=== PATIENT | female | born 1950 | race Caucasian/White ===

== ENCOUNTER → 2020-03-31 13:36 | Outpatient (BNVA) | payer MEDICARE, SELFPAY | PROVIDERS: PCP Internal Medicine Medical Oncology; Referring Provider Internal Medicine Medical Oncology; Visit Provider Internal Medicine | DX: I25.10 Atherosclerotic heart disease of native coronary artery without angina pectoris (principal); R94.31 Abnormal electrocardiogram [ECG] [EKG]; I10 Essential (primary) hypertension; E78.5 Hyperlipidemia, unspecified; Z79.82 Long term (current) use of aspirin; Z79.899 Other long term (current) drug therapy; Z95.1 Presence of aortocoronary bypass graft | CPT/HCPCS: 93005; 99202 ==

== ENCOUNTER 2020-05-07 10:31 | Outpatient (REF) | payer MEDICARE, SELFPAY ==
--- NOTE | 2020-05-07 10:35 | MM_ITS ---
EXAMINATION: MM SCREENING DIGITAL BREAST TOMOSYNTHESIS, BILATERAL CLINICAL INFORMATION: Screening. Asymptomatic. The lifetime risk of breast cancer based on the Tyrer-Cuzick Model is 3%. COMPARISON: Mammography: 03/11/2019, 01/22/2018, 11/01/2016 TECHNIQUE: Digital breast tomosynthesis is performed in both the craniocaudal and mediolateral oblique views along with computer-aided detection (CAD). Synthesized 2D images are generated from the tomosynthesis. FINDINGS: There are scattered areas of fibroglandular density (ACR BI-RADS breast composition Category b). Parenchymal pattern is similar to prior studies. There is no interval mass or developing density or architectural abnormality. There are scattered calcifications in both breasts, greater on right. Some vascular calcifications are mildly increased. There is digital processing artifact anterior upper right breast on the synthesized right MLO view without correlate on tomography or CC projection. The axilla and skin contours are unremarkable. MM/MM tomosynthesis screening BI IMPRESSION: No significant changes from prior exams. ASSESSMENT: BI-RADS 2: Benign RECOMMENDATION: Routine annual mammography screening. This patient's information was entered into a reminder system with a target due date for their next mammogram.
== END 2020-05-07 10:32 | disposition home or self-care (01) ==
LOC: HO.MAMMO 10:31
PROVIDERS: Visit Provider Internal Medicine Medical Oncology
DX: Z12.31 Encounter for screening mammogram for malignant neoplasm of breast (principal)
CPT/HCPCS: 77063; 77067

== ENCOUNTER → 2020-05-19 08:47 | Outpatient (REF) | payer MEDICARE, SELFPAY ==
--- NOTE | 2020-05-19 08:58 | CA_ITS ---
Transthoracic Echocardiogram Patient (Last, First, Middle): Mónica Paulino, Gender: Female Date of : 1950 Age: 70 Procedure Date: 05/19/2020 Procedure Type: Transthoracic Echocardiogram Location: OP Height: 149.86 cm Weight: 79.83 kg BSA: 1.75 m2 Heart Rate: bpm BP: 158 / 70 mmHg Phlebotomy Supervisor: [email or web address] Referring MD: Farhan Akhtar MD Die Caster: John Paul Sharma MD Symptoms: I25.10 - Atherosclerotic heart disease of [place] coronary artery without angina pectoris Study Quality: Fair ECG Rhythm: Sinus Conclusions: - 1. Hyperdynamic LV systolic function with pseudonormal filling pattern 2. Mildly dilated left atrium 3. Trivial aortic regurgitation 4. Normal RV systolic pressure 5. No pericardial effusion Findings Left Ventricle Normal left ventricular cavity size. There is mildly increased left ventricular wall thickness. The left ventricular systolic function is hyperdynamic. The visually estimated ejection fraction is >70%. Spectral Doppler is indicative of a pseudonormal filling pattern. E/E prime ratio is between 8 and 15 consistent with indeterminate filling pressures. Right Ventricle Normal right ventricular cavity size and systolic function. Atria The left atrium is mildly dilated. Interatrial shunt cannot be excluded. The right atrium is normal in size. Aortic Valve There is mild calcification of the aortic valve. There is no aortic valve stenosis. There is trace (trivial) aortic valve regurgitation. Mitral Valve There is mild posterior mitral leaflet thickening. There is mild mitral annular calcification. There is trace mitral valve regurgitation. There is no mitral valve stenosis. Pulmonic Valve The pulmonic valve was not well visualized. Tricuspid Valve Likely normal tricuspid valve structure and function. There is mild tricuspid valve regurgitation. The right ventricular systolic pressure is normal. The right ventricular systolic pressure is 29 mmHg. Normal right atrial pressure. There is no evidence of pulmonary hypertension. Great Vessels All visible segments of the aorta are normal in size. The pulmonary artery was not well visualized. Venous The inferior vena cava is normal in size and collapses greater than 50% with inspiration. Pericardium/Pleural There is no evidence of pericardial effusion. Prior Study Comparison No previous study in the last 5 years for comparison Measurements 2D Linear Measurements IVSd: 1.26 0.6-0.9/0.6-1.0 cm LVIDd: 4.81 3.9-5.3/4.2-5.9 cm LVIDd Index: 2.75 2.4-3.2/2.2-3.1 cm/m2 LVIDs: 2.85 2.0-3.6 cm LVPWd: 1.02 0.7-1.1 cm Ao Root: 2.20 2.1-3.5 cm LA Diam: 4.60 2.7-3.8/3.0-4.0 cm LAIDs Index: 2.63 1.5-2.3 cm/m2 LV Mass: 254.92 67-162/88-224 g LV Mass Index: 145.67 43-95/49-115 g/m2 LVOT Diam: 2.00 3.0+(-)1.3 cm 2D Systolic Function EF 4C: 80.60 >55% EF 2C: 90.00 >55% Mitral Valve MV Pk E: 0.85 MV PK A: 0.53 MV Decel Time: 183.00 E/A: 1.60 E'Lateral: 8.90 E'Medial: 6.00 E/E' Med: 14.20 E/E' Lat: 9.50 PHT: 54.00 MVA PHT: 4.07 Decel Bulloch: 4.64 Aortic Valve AoV Pk Cem: 1.51 AoV Pk Grad: 9.00 LVOT LVOT Pk Cem: 1.04 LVOT Mn Cem: 0.65 LVOT VTI: 0.24 LVOT Pk Grad: 4.00 LVOT Mn Grad: 2.00 LVOT Diam: 2.00 LVOT Area: 3.14 Diastolic Function MV Pk E: 0.85 MV Pk A: 0.53 E/A: 1.60 E'Medial: 6.00 E/E' Med: 14.20 E' Laterial: 8.90 E/E' Lat: 9.50 Tricuspid Valve TR Pk Cem: 2.54 TR Pk Grad: 26.00 RA Press: 3.00 RVSP: 29.00 Great Vessels Aorta Ao Root-2D: 2.20 2.0-3.7 cm Ao Asc: 2.90 2.1-3.4 cm Updated in Other Vendor System with Status of Final John Paul Sharma MD electronically signed on 05/20/2020 2:46:08 PM with status of Final
--- NOTE | 2020-05-19 10:00 | CA_ITS ---
Acquisition Time: 2020-05-19 11:03:41 Total Exercise Time: 00:02:00 Test Indications: Abnormal ECG Medications: SEE CHART Protocol: LEXISCAN Max HR: 089 BPM 59% of Pred: 150 BPM Max BP: 180/090 mmHG Max Work Load: 1.0 METS Pharmacological stress test using Lexiscan while sitting. Tolerated well, denies any anginal sx. EKG with [address] depressions seen inferiorly and anteriorly. Non-diagnostic for ischemia. Nuclear images to follow. Pt had high BP, pt states that she is anxious. BP did not increased after the test. Test reviewed with Dr. Akhtar. Referred By: Farhan Akhtar Overread By: Selvin Sánchez
--- NOTE | 2020-05-19 10:02 | NM_ITS ---
Myocardial perfusion study Indication: Atherosclerotic cardiovascular disease to evaluate for myocardial ischemia Technique: The patient was brought in for a Lexiscan perfusion study on 05/19/2020. Patient performed low-level exercise and was injected 0.4 mg of Lexiscan intravenously. Within a minute of injection, 25 mCi of sestamibi was given intravenously. Images were obtained using the SPECT gamma camera interlaced with the gating device. Images were obtained in supine position. Resting perfusion study was performed on 05/25/2020. Patient was administered 25 mCi of sestamibi intravenously at rest. Images were then obtained in supine position. Images obtained with and without CT attenuation. Total DLP 76 mGy-cm. Images were processed with the software and compared side to side in short axis, horizontal long axis and vertical long axis views. Findings: The stress perfusion study showed non attenuated images show moderately reduced uptake distal anterior and apex as well as mildly reduced uptake in the anterolateral wall of the LV myocardium. Attenuation corrected images show normalized uptake in the above mentioned segments. Overall normal uptake of the myocardium. The gated study shows normal LV systolic function with calculated LVEF of 59%. LV cavity is normal size. The gated study shows normal systolic wall thickening and contraction of segments. Resting study shows normal uptake of radiotracer in all segments of LV myocardium both on attenuation corrected. Gating at rest reveals normal systolic wall motion with ejection fraction at 69%. The findings are consistent with mild intensity reversible defect of anterolateral distal anterior wall of the LV myocardium on non attenuated images suggestive of ischemia. However attenuated corrected images are completely normal without reversible defect. This is an equivocal finding for correlation suggested. NM/NM cardiolite stress test Impression: 1. Myocardial perfusion imaging study shows mild intensity reversible defect in the anterolateral wall in diagonal territory on non attenuated images suggestive of ischemia 2. Gated LVEF is 69% 3. Transient ischemic dilatation not present EKG is nondiagnostic for ischemia
== END ==
LOC: HO.CARD 08:47
PROVIDERS: Visit Provider Internal Medicine
DX: I25.10 Atherosclerotic heart disease of native coronary artery without angina pectoris (principal)
CPT/HCPCS: 78452; 93017; 93306; A9500; J0280; J2785

== ENCOUNTER → 2020-05-26 12:32 | Outpatient (BNVA) | payer MEDICARE, SELFPAY | PROVIDERS: PCP Internal Medicine Medical Oncology; Visit Provider Internal Medicine | DX: I25.10 Atherosclerotic heart disease of native coronary artery without angina pectoris (principal); I10 Essential (primary) hypertension; E78.5 Hyperlipidemia, unspecified; R94.31 Abnormal electrocardiogram [ECG] [EKG]; Z95.1 Presence of aortocoronary bypass graft | CPT/HCPCS: 99212 ==

== ENCOUNTER 2020-06-22 10:29 | Outpatient (REF) | payer MEDICARE, SELFPAY ==
[2020-06-22 11:42] LABS: MANUAL DIFF FLAG NO
[2020-06-22 11:51] LABS: Basophils Percent Auto 0.3 % (0-2); Eosinophils Absolute Auto 0.2 X10*3/uL (0.0-0.4); Eosinophils Percent Auto 2.9 % (0-4); Hematocrit 36.3 % (37-47); Hemoglobin 11.4 g/dl (12.0-16.0); Imm Gran Abs Auto 0.01 X10*3/uL (0.00-0.03); Imm Gran Pct Auto 0.2 % (0.0-0.4); Lymphocytes Absolute Auto 1.5 X10*3/uL (1.2-4.9); Lymphocytes Percent Auto 25.2 % (20-40); Mean Corpuscular HGB Conc 31.4 g/dl (31.0-35.0); Mean Corpuscular Hemoglobin 28.1 pg (27.0-33.0); Mean Corpuscular Volume 89.4 fL (80-98); Mean Platelet Volume 11.2 fL (9.4-12.3); Monocytes Absolute Auto 0.6 X10*3/uL (0.1-1.2); Neutrophils Absolute Auto 3.5 X10*3/uL (2.0-8.3); Neutrophils Percent Auto 60.4 % (45-73); Platelet Count 202 X10*3/uL (160-400); Red Blood Count 4.06 X10*6/uL (4.20-5.50); Red Cell Distribution Width 13.1 % (11.0-16.0); White Blood Count 5.8 X10*3/uL (4.8-10.8)
[2020-06-22 12:12] LABS: Alanine Aminotransferase 17 U/L (0-31); Albumin Level 4.3 g/dL (3.5-5.0); Alkaline Phosphatase 46 U/L (39-117); Anion Gap 13 (12-20); Aspartate Amino Transferase 21 U/L (5-31); Bilirubin Total 0.5 mg/dL (0.0-1.0); Blood Urea Nitrogen 21 mg/dL (9-16); Calcium 9.5 mg/dL (8.4-10.2); Carbon Dioxide 28 mmol/L (22-29); Chloride 105 mmol/L (96-108); Cholesterol 131 mg/dL; Estimated Glomerular Filt Rate 52; Glucose Fasting 122 mg/dL (60-99); HDL Cholesterol 39 mg/dL; LDL Cholesterol Calculated 62 mg/dl; Potassium 4.6 mmol/L (3.3-5.1); Sodium 141 mmol/L (135-145); Total Protein 7.2 g/dL (6.5-8.0); Triglycerides 154 mg/dL
== END 2020-06-22 10:30 | disposition home or self-care (01) ==
LOC: HO.LAB 10:29
PROVIDERS: PCP Internal Medicine Medical Oncology; Visit Provider Internal Medicine Medical Oncology
DX: E66.9 Obesity, unspecified (principal); I10 Essential (primary) hypertension; E78.5 Hyperlipidemia, unspecified
CPT/HCPCS: 36415; 80053; 80061; 85025

== ENCOUNTER 2020-09-14 10:17 | Outpatient (REF) | payer MEDICARE, SELFPAY ==
[2020-09-14 11:08] LABS: MANUAL DIFF FLAG NO
[2020-09-14 11:19] LABS: Basophils Percent Auto 0.4 % (0-2); Eosinophils Absolute Auto 0.2 X10*3/uL (0.0-0.4); Eosinophils Percent Auto 3.6 % (0-4); Hemoglobin 10.6 g/dl (12.0-16.0); Imm Gran Abs Auto 0.01 X10*3/uL (0.00-0.03); Imm Gran Pct Auto 0.2 % (0.0-0.4); Lymphocytes Absolute Auto 1.5 X10*3/uL (1.2-4.9); Lymphocytes Percent Auto 30.7 % (20-40); Mean Corpuscular HGB Conc 31.2 g/dl (31.0-35.0); Mean Corpuscular Hemoglobin 28.3 pg (27.0-33.0); Mean Corpuscular Volume 90.9 fL (80-98); Mean Platelet Volume 10.9 fL (9.4-12.3); Monocytes Absolute Auto 0.6 X10*3/uL (0.1-1.2); Monocytes Percent Auto 12.2 % (2-11); Neutrophils Absolute Auto 2.7 X10*3/uL (2.0-8.3); Neutrophils Percent Auto 52.9 % (45-73); Platelet Count 206 X10*3/uL (160-400); Red Blood Count 3.74 X10*6/uL (4.20-5.50); Red Cell Distribution Width 13.2 % (11.0-16.0)
[2020-09-14 11:41] LABS: Alanine Aminotransferase 18 U/L (0-31); Alkaline Phosphatase 46 U/L (39-117); Anion Gap 12 (12-20); Aspartate Amino Transferase 21 U/L (5-31); Bilirubin Total 0.6 mg/dL (0.0-1.0); Blood Urea Nitrogen 22 mg/dL (9-16); Calcium 9.3 mg/dL (8.4-10.2); Carbon Dioxide 28 mmol/L (22-29); Chloride 106 mmol/L (96-108); Cholesterol 124 mg/dL; Estimated Glomerular Filt Rate 57; Glucose Fasting 126 mg/dL (60-99); HDL Cholesterol 38 mg/dL; LDL Cholesterol Calculated 59 mg/dl; Potassium 4.3 mmol/L (3.3-5.1); Sodium 142 mmol/L (135-145); Total Protein 6.7 g/dL (6.5-8.0); Triglycerides 136 mg/dL
== END 2020-09-14 10:18 | disposition home or self-care (01) ==
LOC: HO.LAB 10:17
PROVIDERS: PCP Internal Medicine Medical Oncology; Visit Provider Internal Medicine Medical Oncology
DX: M25.562 Pain in left knee (principal); I10 Essential (primary) hypertension; E66.9 Obesity, unspecified; E78.5 Hyperlipidemia, unspecified; D63.8 Anemia in other chronic diseases classified elsewhere
CPT/HCPCS: 36415; 80053; 80061; 85025

== ENCOUNTER 2020-11-25 07:28 | Outpatient (REF) | payer MEDICARE, SELFPAY ==
--- NOTE | ~2020-11-25 | XR_ITS ---
EXAMINATION: XR KNEE, LEFT XR KNEE STANDING, BILATERAL CLINICAL INFORMATION: Pain left knee. COMPARISON: None TECHNIQUE: AP standing view of both knees and lateral view of the left knee. FINDINGS: A standing view of both knees demonstrates significant degenerative narrowing of the medial joint space compartment of the right knee with mild narrowing on the left. Chondrocalcinosis is present. No acute fracture or dislocation. No destructive bony lesions are seen. Lateral view of the left knee demonstrates some mild spurring at the patellofemoral joint as well as a patellar spur at site of insertion of the quadriceps tendon. Vascular calcifications are present as well as patient being status post previous vascular surgery in the right lower extremity. XR/XR knee LT 2V IMPRESSION: Significant degenerative change right knee medial joint space compartment. Bilateral chondrocalcinosis. Mild patellofemoral joint degenerative change left knee.
--- NOTE | ~2020-11-25 | XR_ITS ---
EXAMINATION: XR KNEE, LEFT XR KNEE STANDING, BILATERAL CLINICAL INFORMATION: Pain left knee. COMPARISON: None TECHNIQUE: AP standing view of both knees and lateral view of the left knee. FINDINGS: A standing view of both knees demonstrates significant degenerative narrowing of the medial joint space compartment of the right knee with mild narrowing on the left. Chondrocalcinosis is present. No acute fracture or dislocation. No destructive bony lesions are seen. Lateral view of the left knee demonstrates some mild spurring at the patellofemoral joint as well as a patellar spur at site of insertion of the quadriceps tendon. Vascular calcifications are present as well as patient being status post previous vascular surgery in the right lower extremity. XR/XR knee standing BI IMPRESSION: Significant degenerative change right knee medial joint space compartment. Bilateral chondrocalcinosis. Mild patellofemoral joint degenerative change left knee.
== END 2020-11-25 07:29 | disposition home or self-care (01) ==
LOC: HO.HOSX 07:28
PROVIDERS: Visit Provider Physician Assistant
DX: M17.12 Unilateral primary osteoarthritis, left knee (principal); M25.561 Pain in right knee
CPT/HCPCS: 73560; 73565; 99202

== ENCOUNTER 2021-01-02 10:08 | Outpatient (REF) | payer MEDICARE, SELFPAY ==
[2021-01-02 11:17] LABS: MANUAL DIFF FLAG NO
[2021-01-02 11:20] LABS: Basophils Percent Auto 0.6 % (0-2); Eosinophils Absolute Auto 0.2 X10*3/uL (0.0-0.4); Eosinophils Percent Auto 3.7 % (0-4); Hematocrit 33.7 % (37-47); Hemoglobin 10.7 g/dl (12.0-16.0); Imm Gran Abs Auto 0.01 X10*3/uL (0.00-0.03); Imm Gran Pct Auto 0.2 % (0.0-0.4); Lymphocytes Absolute Auto 1.5 X10*3/uL (1.2-4.9); Lymphocytes Percent Auto 29.1 % (20-40); Mean Corpuscular HGB Conc 31.8 g/dl (31.0-35.0); Mean Corpuscular Hemoglobin 28.4 pg (27.0-33.0); Mean Corpuscular Volume 89.4 fL (80-98); Mean Platelet Volume 11.1 fL (9.4-12.3); Monocytes Absolute Auto 0.6 X10*3/uL (0.1-1.2); Monocytes Percent Auto 11.6 % (2-11); Neutrophils Absolute Auto 2.9 X10*3/uL (2.0-8.3); Neutrophils Percent Auto 54.8 % (45-73); Platelet Count 201 X10*3/uL (160-400); Red Blood Count 3.77 X10*6/uL (4.20-5.50); Red Cell Distribution Width 13.3 % (11.0-16.0); White Blood Count 5.2 X10*3/uL (4.8-10.8)
[2021-01-02 11:42] LABS: Alanine Aminotransferase 15 U/L (0-31); Albumin Level 4.2 g/dL (3.5-5.0); Alkaline Phosphatase 46 U/L (39-117); Anion Gap 12 (12-20); Aspartate Amino Transferase 20 U/L (5-31); Bilirubin Total 0.3 mg/dL (0.0-1.0); Blood Urea Nitrogen 19 mg/dL (9-16); Calcium 9.8 mg/dL (8.4-10.2); Carbon Dioxide 27 mmol/L (22-29); Chloride 107 mmol/L (96-108); Cholesterol 132 mg/dL; Estimated Glomerular Filt Rate 52; Glucose Random 130 mg/dL (60-115); HDL Cholesterol 41 mg/dL; LDL Cholesterol Calculated 62 mg/dl; Potassium 4.4 mmol/L (3.3-5.1); Sodium 142 mmol/L (135-145); Triglycerides 147 mg/dL
== END 2021-01-02 10:09 | disposition home or self-care (01) ==
LOC: HO.LAB 10:08
PROVIDERS: PCP Internal Medicine Medical Oncology; Visit Provider Internal Medicine Medical Oncology
DX: E78.5 Hyperlipidemia, unspecified (principal); I10 Essential (primary) hypertension; D63.8 Anemia in other chronic diseases classified elsewhere
CPT/HCPCS: 36415; 80053; 80061; 85025

== ENCOUNTER 2021-01-07 14:00 | Outpatient (RCR) | payer MEDICARE, SELFPAY | END 2021-03-19 15:06 | disposition home or self-care (01) | LOC: HO.PTWFD 14:00 | PROVIDERS: PCP Internal Medicine Medical Oncology; Visit Provider Physician Assistant | DX: M17.12 Unilateral primary osteoarthritis, left knee (principal) | CPT/HCPCS: 97110; 97116; 97140; 97162; 97535 ==

== ENCOUNTER → 2021-01-19 13:50 | Outpatient (BNVA) | payer MEDICARE, SELFPAY | PROVIDERS: PCP Internal Medicine Medical Oncology; Visit Provider Internal Medicine | DX: I25.10 Atherosclerotic heart disease of native coronary artery without angina pectoris (principal); I10 Essential (primary) hypertension; E78.5 Hyperlipidemia, unspecified; R94.31 Abnormal electrocardiogram [ECG] [EKG]; Z95.1 Presence of aortocoronary bypass graft | CPT/HCPCS: 99212 ==

== ENCOUNTER 2021-01-25 13:11 | Outpatient (REF) | payer MEDICARE, SELFPAY | END 2021-01-25 13:12 | disposition home or self-care (01) | LOC: HO.LAB 13:11 | PROVIDERS: Visit Provider Internal Medicine | DX: Z20.822 Contact with and (suspected) exposure to COVID-19 (principal) | CPT/HCPCS: C9803; U0003; U0005 ==

== ENCOUNTER 2021-04-05 10:44 | Outpatient (REF) | payer MEDICARE, SELFPAY ==
[2021-04-05 11:12] LABS: MANUAL DIFF FLAG NO
[2021-04-05 11:15] LABS: Basophils Percent Auto 0.4 % (0-2); Eosinophils Absolute Auto 0.2 X10*3/uL (0.0-0.4); Eosinophils Percent Auto 3.8 % (0-4); Hematocrit 33.2 % (37.0-47.0); Hemoglobin 10.5 g/dl (12.0-16.0); Lymphocytes Absolute Auto 1.4 X10*3/uL (1.2-4.9); Mean Corpuscular HGB Conc 31.6 g/dl (31.0-35.0); Mean Corpuscular Hemoglobin 28.5 pg (27.0-33.0); Mean Corpuscular Volume 90.2 fL (80.0-98.0); Mean Platelet Volume 10.8 fL (9.4-12.3); Monocytes Absolute Auto 0.8 X10*3/uL (0.1-1.2); Monocytes Percent Auto 14.2 % (2-11); Neutrophils Percent Auto 55.6 % (45-73); Platelet Count 174 X10*3/uL (160-400); Red Blood Count 3.68 X10*6/uL (4.20-5.50); Red Cell Distribution Width 14.4 % (11.0-16.0); White Blood Count 5.3 X10*3/uL (4.8-10.8)
[2021-04-05 12:14] LABS: Alanine Aminotransferase 17 U/L (0-31); Alkaline Phosphatase 41 U/L (39-117); Anion Gap 12 (12-20); Aspartate Amino Transferase 20 U/L (5-31); Bilirubin Total 0.3 mg/dL (0.0-1.0); Blood Urea Nitrogen 22 mg/dL (9-16); Calcium 9.3 mg/dL (8.4-10.2); Carbon Dioxide 27 mmol/L (22-29); Chloride 106 mmol/L (96-108); Cholesterol 141 mg/dL; Estimated Glomerular Filt Rate 59; Glucose Fasting 124 mg/dL (60-99); HDL Cholesterol 39 mg/dL; LDL Cholesterol Calculated 70 mg/dl; Potassium 4.4 mmol/L (3.3-5.1); Sodium 141 mmol/L (135-145); Total Protein 6.8 g/dL (6.5-8.0); Triglycerides 163 mg/dL
== END 2021-04-05 10:45 | disposition home or self-care (01) ==
LOC: HO.LAB 10:44
PROVIDERS: PCP Internal Medicine Medical Oncology; Visit Provider Internal Medicine Medical Oncology
DX: E78.5 Hyperlipidemia, unspecified (principal); E66.9 Obesity, unspecified
CPT/HCPCS: 36415; 80053; 80061; 85025

== ENCOUNTER 2021-05-31 14:04 | Outpatient (REF) | payer MEDICARE, SELFPAY ==
--- NOTE | ~2021-05-31 | MM_ITS ---
EXAMINATION: MM SCREENING DIGITAL BREAST TOMOSYNTHESIS, BILATERAL CLINICAL INFORMATION: Screening. Asymptomatic. The lifetime risk of breast cancer based on the Tyrer-Cuzick Model is 3%. COMPARISON: Mammography: 05/07/2020, 03/11/2019, 01/22/2018 TECHNIQUE: Digital breast tomosynthesis is performed in both the craniocaudal and mediolateral oblique views along with computer-aided detection (CAD). Synthesized 2D images are generated from the tomosynthesis. FINDINGS: There are scattered areas of fibroglandular density (ACR BI-RADS breast composition Category b). There are no significant masses, abnormal calcifications, or other abnormalities. Parenchymal pattern is similar to prior studies. There is no developing density or architectural abnormality. The axilla and skin contours are unremarkable. No significant changes. MM/MM tomosynthesis screening BI IMPRESSION: No mammographic evidence of malignancy. ASSESSMENT: BI-RADS 1: Negative RECOMMENDATION: Routine annual mammography screening. This patient's information was entered into a reminder system with a target due date for their next mammogram.
== END 2021-05-31 14:05 | disposition home or self-care (01) ==
LOC: HO.MAMMO 14:04
PROVIDERS: Visit Provider Internal Medicine Medical Oncology
DX: Z12.31 Encounter for screening mammogram for malignant neoplasm of breast (principal)
CPT/HCPCS: 77063; 77067

== ENCOUNTER 2021-07-12 10:15 | Outpatient (REF) | payer MEDICARE, SELFPAY ==
[2021-07-12 10:46] LABS: MANUAL DIFF FLAG NO
[2021-07-12 11:00] LABS: Basophils Percent Auto 0.3 % (0-2); Eosinophils Absolute Auto 0.3 X10*3/uL (0.0-0.4); Eosinophils Percent Auto 4.3 % (0-4); Hemoglobin 11.2 g/dl (12.0-16.0); Imm Gran Abs Auto 0.01 X10*3/uL (0.00-0.03); Imm Gran Pct Auto 0.2 % (0.0-0.4); Lymphocytes Absolute Auto 1.5 X10*3/uL (1.2-4.9); Lymphocytes Percent Auto 25.3 % (20-40); Mean Corpuscular HGB Conc 31.1 g/dl (31.0-35.0); Mean Corpuscular Hemoglobin 28.2 pg (27.0-33.0); Mean Corpuscular Volume 90.7 fL (80.0-98.0); Mean Platelet Volume 10.6 fL (9.4-12.3); Monocytes Absolute Auto 0.6 X10*3/uL (0.1-1.2); Monocytes Percent Auto 10.9 % (2-11); Neutrophils Absolute Auto 3.4 x10*3/uL (2.0-8.3); Platelet Count 195 X10*3/uL (160-400); Red Blood Count 3.97 X10*6/uL (4.20-5.50); Red Cell Distribution Width 13.2 % (11.0-16.0); White Blood Count 5.8 X10*3/uL (4.8-10.8)
[2021-07-12 11:33] LABS: Alanine Aminotransferase 13 U/L (0-31); Albumin Level 4.2 g/dL (3.5-5.0); Alkaline Phosphatase 45 U/L (39-117); Anion Gap 11 (12-20); Aspartate Amino Transferase 22 U/L (5-31); Bilirubin Total 0.3 mg/dL (0.0-1.0); Blood Urea Nitrogen 19 mg/dL (9-16); Calcium 10.1 mg/dL (8.4-10.2); Carbon Dioxide 30 mmol/L (22-29); Chloride 105 mmol/L (96-108); Cholesterol 126 mg/dL; Estimated Glomerular Filt Rate 48; Glucose Fasting 133 mg/dL (60-99); HDL Cholesterol 37 mg/dL; LDL Cholesterol Calculated 55 mg/dl; Potassium 4.8 mmol/L (3.3-5.1); Sodium 141 mmol/L (135-145); Total Protein 7.1 g/dL (6.5-8.0); Triglycerides 172 mg/dL
== END 2021-07-12 10:16 | disposition home or self-care (01) ==
LOC: HO.LAB 10:15
PROVIDERS: PCP Internal Medicine Medical Oncology; Visit Provider Internal Medicine Medical Oncology
DX: E78.5 Hyperlipidemia, unspecified (principal); I10 Essential (primary) hypertension; I25.10 Atherosclerotic heart disease of native coronary artery without angina pectoris
CPT/HCPCS: 36415; 80053; 80061; 85025

== ENCOUNTER 2021-10-11 09:01 | Outpatient (REF) | payer MEDICARE, SELFPAY ==
[2021-10-11 09:34] LABS: MANUAL DIFF FLAG NO
[2021-10-11 09:46] LABS: Basophils Percent Auto 0.5 % (0-2); Eosinophils Absolute Auto 0.2 X10*3/uL (0.0-0.4); Hematocrit 33.9 % (37.0-47.0); Hemoglobin 10.6 g/dl (12.0-16.0); Imm Gran Abs Auto 0.02 X10*3/uL (0.00-0.03); Imm Gran Pct Auto 0.3 % (0.0-0.4); Lymphocytes Absolute Auto 1.4 X10*3/uL (1.2-4.9); Lymphocytes Percent Auto 24.3 % (20-40); Mean Corpuscular HGB Conc 31.3 g/dl (31.0-35.0); Mean Corpuscular Hemoglobin 28.5 pg (27.0-33.0); Mean Corpuscular Volume 91.1 fL (80.0-98.0); Mean Platelet Volume 10.7 fL (9.4-12.3); Monocytes Absolute Auto 0.6 X10*3/uL (0.1-1.2); Neutrophils Absolute Auto 3.4 x10*3/uL (2.0-8.3); Neutrophils Percent Auto 59.9 % (45-73); Platelet Count 202 X10*3/uL (160-400); Red Blood Count 3.72 X10*6/uL (4.20-5.50); Red Cell Distribution Width 13.1 % (11.0-16.0); White Blood Count 5.7 X10*3/uL (4.8-10.8)
[2021-10-11 10:17] LABS: Alanine Aminotransferase 17 U/L (0-31); Alkaline Phosphatase 41 U/L (39-117); Anion Gap 13 (12-20); Aspartate Amino Transferase 25 U/L (5-31); Bilirubin Total 0.5 mg/dL (0.0-1.0); Blood Urea Nitrogen 21 mg/dL (9-16); Carbon Dioxide 26 mmol/L (22-29); Chloride 106 mmol/L (96-108); Cholesterol 125 mg/dL; Estimated Glomerular Filt Rate 53; Glucose Fasting 125 mg/dL (60-99); HDL Cholesterol 36 mg/dL; LDL Cholesterol Calculated 63 mg/dl; Potassium 4.6 mmol/L (3.3-5.1); Sodium 140 mmol/L (135-145); Total Protein 6.9 g/dL (6.5-8.0); Triglycerides 134 mg/dL
[2021-10-11 11:00] LABS: Estimated Average Glucose 134 mg/dL; Hemoglobin A1c % 6.3 %
== END 2021-10-11 09:02 | disposition home or self-care (01) ==
LOC: HO.LAB 09:01
PROVIDERS: PCP Internal Medicine Medical Oncology; Visit Provider Internal Medicine Medical Oncology
DX: I10 Essential (primary) hypertension (principal); I25.10 Atherosclerotic heart disease of native coronary artery without angina pectoris; E78.5 Hyperlipidemia, unspecified; E66.9 Obesity, unspecified; R73.9 Hyperglycemia, unspecified
CPT/HCPCS: 36415; 80053; 80061; 83036; 85025

== ENCOUNTER → 2022-01-24 13:03 | Outpatient (BNVA) | payer MEDICARE, SELFPAY | PROVIDERS: PCP Internal Medicine Medical Oncology; Referring Provider Internal Medicine Medical Oncology; Visit Provider Internal Medicine | DX: I25.10 Atherosclerotic heart disease of native coronary artery without angina pectoris (principal); I10 Essential (primary) hypertension; E78.5 Hyperlipidemia, unspecified; Z95.1 Presence of aortocoronary bypass graft | CPT/HCPCS: 93005; 99212 ==

== ENCOUNTER 2022-03-14 10:17 | Outpatient (REF) | payer MEDICARE, SELFPAY ==
[2022-03-14 10:43] LABS: MANUAL DIFF FLAG NO
[2022-03-14 10:57] LABS: Basophils Percent Auto 0.2 % (0-2); Eosinophils Absolute Auto 0.3 X10*3/uL (0.0-0.4); Eosinophils Percent Auto 4.6 % (0-4); Hematocrit 33.9 % (37.0-47.0); Hemoglobin 10.6 g/dl (12.0-16.0); Imm Gran Abs Auto 0.02 X10*3/uL (0.00-0.03); Imm Gran Pct Auto 0.4 % (0.0-0.4); Lymphocytes Absolute Auto 1.4 X10*3/uL (1.2-4.9); Lymphocytes Percent Auto 26.6 % (20-40); Mean Corpuscular HGB Conc 31.3 g/dl (31.0-35.0); Mean Corpuscular Volume 89.7 fL (80.0-98.0); Mean Platelet Volume 11.2 fL (9.4-12.3); Monocytes Absolute Auto 0.6 X10*3/uL (0.1-1.2); Monocytes Percent Auto 11.3 % (2-11); Neutrophils Absolute Auto 3.1 x10*3/uL (2.0-8.3); Neutrophils Percent Auto 56.9 % (45-73); Platelet Count 181 X10*3/uL (160-400); Red Blood Count 3.78 X10*6/uL (4.20-5.50); Red Cell Distribution Width 13.4 % (11.0-16.0); White Blood Count 5.4 X10*3/uL (4.8-10.8)
[2022-03-14 11:22] LABS: Alanine Aminotransferase 20 U/L (0-31); Albumin Level 4.2 g/dL (3.5-5.0); Alkaline Phosphatase 44 U/L (39-117); Anion Gap 15 (12-20); Aspartate Amino Transferase 24 U/L (5-31); Bilirubin Total 0.4 mg/dL (0.0-1.0); Blood Urea Nitrogen 21 mg/dL (9-16); Calcium 9.5 mg/dL (8.4-10.2); Carbon Dioxide 26 mmol/L (22-29); Chloride 107 mmol/L (96-108); Cholesterol 133 mg/dL; Estimated Glomerular Filt Rate 51; Glucose Fasting 122 mg/dL (60-99); HDL Cholesterol 42 mg/dL; LDL Cholesterol Calculated 63 mg/dl; Potassium 4.8 mmol/L (3.3-5.1); Sodium 143 mmol/L (135-145); Total Protein 7.1 g/dL (6.5-8.0); Triglycerides 143 mg/dL
== END 2022-03-14 10:18 | disposition home or self-care (01) ==
LOC: HO.LAB 10:17
PROVIDERS: PCP Internal Medicine Medical Oncology; Visit Provider Internal Medicine Medical Oncology
DX: E66.9 Obesity, unspecified (principal); E78.5 Hyperlipidemia, unspecified
CPT/HCPCS: 36415; 80053; 80061; 85025

== ENCOUNTER 2022-06-20 12:28 | Outpatient (REF) | payer MEDICARE, SELFPAY ==
--- NOTE | ~2022-06-20 | MM_ITS ---
EXAMINATION: MM SCREENING DIGITAL BREAST TOMOSYNTHESIS, BILATERAL CLINICAL INFORMATION: Screening. Asymptomatic. The lifetime risk of breast cancer based on the Tyrer-Cuzick Model is 3%. COMPARISON: Mammography: 05/31/2021, 05/07/2020, 03/11/2019, 01/22/2018 TECHNIQUE: Digital breast tomosynthesis is performed in both the craniocaudal and mediolateral oblique views along with computer-aided detection (CAD). Synthesized 2D images are generated from the tomosynthesis. FINDINGS: There are scattered areas of fibroglandular density (ACR BI-RADS breast composition Category b). There are no significant masses, abnormal calcifications, or other abnormalities. Parenchymal pattern is similar to prior studies. There is no developing density or architectural abnormality. The axilla and skin contours are unremarkable. No significant changes. MM/MM tomosynthesis screening BI IMPRESSION: No mammographic evidence of malignancy. ASSESSMENT: BI-RADS 1: Negative RECOMMENDATION: Routine annual mammography screening. This patient's information was entered into a reminder system with a target due date for their next mammogram.
== END 2022-06-20 12:29 | disposition home or self-care (01) ==
LOC: HO.MAMMO 12:28
PROVIDERS: PCP Internal Medicine Medical Oncology; Visit Provider Internal Medicine Medical Oncology
DX: Z12.31 Encounter for screening mammogram for malignant neoplasm of breast (principal)
CPT/HCPCS: 77063; 77067

== ENCOUNTER → 2022-09-19 13:25 | Outpatient (BNVA) | payer MEDICARE, SELFPAY | PROVIDERS: PCP Internal Medicine Medical Oncology; Referring Provider Internal Medicine Medical Oncology; Visit Provider Internal Medicine | DX: I25.10 Atherosclerotic heart disease of native coronary artery without angina pectoris (principal); I10 Essential (primary) hypertension; E78.5 Hyperlipidemia, unspecified; Z95.1 Presence of aortocoronary bypass graft | CPT/HCPCS: 99212 ==

== ENCOUNTER 2023-02-20 17:10 | Outpatient (REF) | payer MEDICARE, SELFPAY ==
[2023-02-20 17:23] LABS: Appearance Urine Clear; Color Urine Yellow; Glucose Urine UA Negative (Negative); Leukocyte Esterase Urine Trace (Negative); Nitrite Urine Negative (Negative); PH 6.5 (5.0-9.0); Specific Gravity - Urine <= 1.005 (1.005-1.025); UMIC TRIGGER UACC YES; Urine Blood Negative (Negative); Urine Ketones Negative (Negative); Urine Protein Negative (Neg-Trace)
[2023-02-20 17:39] LABS: Bacteria Urine None Seen (None Seen); Hyaline Casts Urine 0-2 /LPF (0-2); RBC Urine 0-2 /HPF (0-2); Squamous Epithelial Cell Urine 0-2 /HPF (0-2); WBC Urine 0-5 /HPF (0-5)
== END 2023-02-20 17:11 | disposition home or self-care (01) ==
LOC: HO.LNP 17:10
PROVIDERS: Visit Provider Internal Medicine Medical Oncology
DX: R39.9 Unspecified symptoms and signs involving the genitourinary system (principal)
CPT/HCPCS: 81001; 87086

== ENCOUNTER 2023-09-05 13:24 | Outpatient (REF) | payer MEDICARE, SELFPAY | END 2023-09-05 13:25 | disposition home or self-care (01) | LOC: HO.MAMMO 13:24 | PROVIDERS: PCP Internal Medicine Medical Oncology; Visit Provider Internal Medicine Medical Oncology | DX: Z12.31 Encounter for screening mammogram for malignant neoplasm of breast (principal) | CPT/HCPCS: 77063; 77067 ==

== ENCOUNTER → 2023-09-05 13:30 | Outpatient (BNV) | payer MEDICARE, SELFPAY | PROVIDERS: PCP Internal Medicine Medical Oncology; Visit Provider Radiology Diagnostic Radiology | DX: Z12.31 Encounter for screening mammogram for malignant neoplasm of breast (principal) | CPT/HCPCS: 77063; 77067 ==

== ENCOUNTER 2023-11-07 15:00 | Outpatient (REF) | payer MEDICARE, SELFPAY ==
[2023-11-07 17:00] LABS: Appearance Urine Clear; Color Urine Yellow; Glucose Urine UA Negative (Negative); Leukocyte Esterase Urine Negative (Negative); Nitrite Urine Negative (Negative); Specific Gravity - Urine <= 1.005 (1.005-1.025); Urine Blood Negative (Negative); Urine Ketones Negative (Negative); Urine Protein Trace mg/dL (Neg-Trace)
== END 2023-11-07 15:01 | disposition home or self-care (01) ==
LOC: HO.LAB 15:00
PROVIDERS: PCP Internal Medicine Medical Oncology; Visit Provider Internal Medicine Medical Oncology
DX: R39.9 Unspecified symptoms and signs involving the genitourinary system (principal)
CPT/HCPCS: 81003; 87086; 87147

== ENCOUNTER 2023-12-21 12:55 | Outpatient (REF) | payer MEDICARE, SELFPAY ==
--- NOTE | ~2023-12-21 | US_ITS ---
EXAMINATION: US RETROPERITONEAL COMPLETE (RENAL) CLINICAL INFORMATION: Hematuria. COMPARISON: Ultrasound abdomen complete 10/07/2014. TECHNIQUE: Real-time imaging of the kidneys and bladder. FINDINGS: RIGHT KIDNEY: 8.7 x 3.4 x 4.5 cm (SAG x AP x TRV). The kidney is normal in size and contour. There is increased renal cortical echotexture and renal cortical thinning. No calculi or focal parenchymal lesions. No hydronephrosis. LEFT KIDNEY: 10.1 x 4.4 x 4.8 cm (SAG x AP x TRV). The kidney is normal in size and contour. There is increased renal cortical echotexture and renal cortical thinning. No calculi or focal parenchymal lesions. There is mild pelviectasis, without ann hydronephrosis. BLADDER: Well distended and normal. Bilateral ureteral jets are demonstrated. Prevoid bladder volume is 250 mL. Postvoid bladder volume is 17 mL. US/US retroperitoneal comp IMPRESSION: 1. There is increased bilateral renal cortical echotexture renal cortical thinning, which can be associated with medical renal disease. 2. No renal mass, calculus or hydronephrosis is seen. Electronically signed by: Sergey Gunter MD 01/19/2024 05:14 PM EDT
== END 2023-12-21 12:56 | disposition home or self-care (01) ==
LOC: HO.US 12:55
PROVIDERS: PCP Internal Medicine Medical Oncology; Visit Provider Internal Medicine Medical Oncology
DX: R31.9 Hematuria, unspecified (principal)
CPT/HCPCS: 76770

== ENCOUNTER 2024-02-27 10:18 | Outpatient (REF) | payer MEDICARE, SELFPAY ==
[2024-02-27 14:59] LABS: Urine Cytology See Pathology rpt
== END 2024-02-27 10:19 | disposition home or self-care (01) ==
LOC: HO.LAB 10:18
PROVIDERS: PCP Internal Medicine Medical Oncology; Visit Provider Internal Medicine Medical Oncology
DX: I10 Essential (primary) hypertension (principal); R31.0 Gross hematuria
CPT/HCPCS: 88112

== ENCOUNTER 2024-08-02 11:32 | Outpatient (REF) | payer MEDICARE, SELFPAY ==
--- NOTE | ~2024-08-02 | XR_ITS ---
EXAMINATION: XR CHEST 2 VIEWS HISTORY: Chronic cough COMPARISON: There are no prior studies for comparison. FINDINGS: PA and lateral views of the chest are submitted. The lungs are expanded and clear. There is no pleural effusion, pneumothorax, or pulmonary vascular congestion. The heart is normal in size. The patient is status post median sternotomy and CABG. The bones are intact. XR/XR chest 2V IMPRESSION: Clear lungs. Electronically signed by: Michael Dimas MD 08/02/2024 01:27 PM EDT
[2024-08-02 11:53] LABS: MANUAL DIFF FLAG NO
[2024-08-02 12:10] LABS: Basophils Percent Auto 0.6 % (0-2); Eosinophils Absolute Auto 0.2 X10*3/uL (0.0-0.4); Hematocrit 33.5 % (37.0-47.0); Hemoglobin 10.8 g/dl (12.0-16.0); Imm Gran Abs Auto 0.03 X10*3/uL (0.00-0.03); Imm Gran Pct Auto 0.5 % (0.0-0.4); Lymphocytes Absolute Auto 1.5 X10*3/uL (1.2-4.9); Lymphocytes Percent Auto 22.4 % (20-40); Mean Corpuscular HGB Conc 32.2 g/dl (31.0-35.0); Mean Corpuscular Hemoglobin 27.8 pg (27.0-33.0); Mean Corpuscular Volume 86.1 fL (80.0-98.0); Mean Platelet Volume 9.8 fL (9.4-12.3); Monocytes Absolute Auto 0.8 X10*3/uL (0.1-1.2); Monocytes Percent Auto 11.7 % (2-11); Neutrophils Absolute Auto 4.1 x10*3/uL (2.0-8.3); Neutrophils Percent Auto 61.8 % (45-73); Platelet Count 264 X10*3/uL (160-400); Red Blood Count 3.89 X10*6/uL (4.20-5.50); Red Cell Distribution Width 13.5 % (11.0-16.0); White Blood Count 6.7 X10*3/uL (4.8-10.8)
[2024-08-02 12:38] LABS: Cholesterol 121 mg/dL (<200); HDL Cholesterol 32 mg/dL (>40); LDL Cholesterol Calculated 62 mg/dL (<100); Triglycerides 139 mg/dL (<150)
== END 2024-08-02 11:33 | disposition home or self-care (01) ==
LOC: HO.XRAY 11:32
PROVIDERS: PCP Internal Medicine Medical Oncology; Visit Provider Internal Medicine Medical Oncology
DX: R05.3 Chronic cough (principal); E66.9 Obesity, unspecified; E78.5 Hyperlipidemia, unspecified
CPT/HCPCS: 36415; 71046; 80061; 85025

== ENCOUNTER → 2024-08-02 12:04 | Outpatient (BNV) | payer MEDICARE, SELFPAY | PROVIDERS: PCP Internal Medicine Medical Oncology; Visit Provider Radiology Diagnostic Radiology | DX: R05.9 Cough, unspecified (principal) | CPT/HCPCS: 71046 ==

== ENCOUNTER 2024-10-10 13:24 | Outpatient (REF) | payer MEDICARE, SELFPAY ==
--- NOTE | ~2024-10-10 | MM_ITS ---
EXAMINATION: MM SCREENING DIGITAL BREAST TOMOSYNTHESIS, BILATERAL CLINICAL INFORMATION: Screening. Asymptomatic. COMPARISON: Mammography: Comparison is made with available priors TECHNIQUE: Digital breast mammography with tomosynthesis is performed in both the craniocaudal and mediolateral oblique views along with computer-aided detection (CAD). FINDINGS: There are scattered areas of fibroglandular density (ACR BI-RADS breast composition Category b). There are no significant masses, abnormal calcifications, or other abnormalities. MM/MM tomosynthesis screening BI IMPRESSION: No mammographic evidence of malignancy. ASSESSMENT: BI-RADS BI-RADS 1 - Negative RECOMMENDATION: Routine annual mammography screening. 1 year F/U This examination should not preclude the clinical evaluation of a suspicious palpable abnormality. This patient's information was entered into a reminder system with a target due date for their next mammogram. Electronically signed by: Mercedes Samuels DO 10/14/2024 05:23 PM EDT
--- NOTE | ~2024-10-10 | MM_ITS ---
EXAMINATION: DXA BONE DENSITY AXIAL HISTORY: M81.0 TECHNIQUE: [employer] Dual energy absorptiometry (DEXA) of the lumbar spine, total left hip, and femoral neck was performed. COMPARISON: Comparison is made with the prior examination dated 11/01/2016. FINDINGS: The bone mineral density of the lumbar spine is 1.530, corresponding to a T-score of 3.0, and a Z-score of 4.2. This is indicative of normal bone mineral density. This represents a BMD change of 7.2% compared to the prior exam. This is statistically significant. The bone mineral density of the left total hip is 1.260, corresponding to a T-score of 2.0, and a Z-score of 3.4. This is indicative of normal bone mineral density. This represents a BMD change of 0.3% compared to the prior exam. This is not statistically significant. The bone mineral density of the left femoral neck is 1.137, corresponding to a T-score of 0.7, and a Z-score of 2.3. This is indicative of normal bone mineral density. This represents a BMD change of 1.1% compared to the prior exam. MM/XR DEXA axial skeleton IMPRESSION: Based on bone mineral density, and according to World Health Organization (WHO) criteria, the diagnosis is consistent with normal bone mineral density. All bone density values are in grams per centimeter squared (g/cm2). Statistically, 68% of repeat scans fall within 1 SD (+/- 0.010 g/cm2 for AP spine L1-L4) and 1 SD (+/- 0.012 g/cm2 for femur total) FRAX is a trademark of the [employer]'s [place] [facility] Met[employer] Disease, a World Health Organization (WHO) Collaborating Center. Electronically signed by: Michael Dimas MD 10/10/2024 02:43 PM EDT
--- OUTSIDE RECORDS SUMMARY | 2024-10-10 15:49 | XMS_ITS | Patient Health Record ---
Author Organization [facility] Address [address] [place] [address] Care Team Providers Care Dean Name Role Phone DILLON BENTON MD Primary Care Provider Unavailab Татьяна Mac Unavailable [phone] Allergies No Known Allergies Reason For Referral No Information Medications Medication SIG (Take, Route, Fr equency, Duration) Notes Start Date End Date Status Aspirin EC 81MG 1 ORAL daily for -3 [facility] [place] 07/15/2013 Active Nadolol 20MG 1 ORAL daily for -3 [facility] 03/21/2011 Active Lisinopril 20 MG 1 tablet Orally Once a day [facility] [place]- 2010 Active Simvastatin 40 MG 1 tablet in the even ing Orally Once a day for 30 day(s) Active Social History Tobacco Use: Social History Observation Description Date Details (start date - stop date) Former Smoker NA - NA Tobacco Use/Smoking Question Answer Notes Are you a former smoker How long has it been since you last smoked? > 10 years Alcohol Screen (Audit-C) Question Answer Notes Did you have a drink containing alcohol in the p ast year? No Points 0 Interpretation Negative Sexual History Question Answer Notes Had sex in the past 12 months (vaginal, oral, or anal)? No Problems Problem Type SNOMED Code ICD Code Onset Dates Problem Status W/U Status Risk Notes Problem Menopause (823157060) Menopausal and female climacteric states (N95.1) Active confirmed Problem Postmenopausal atrophic vaginitis (33838625) Postmenopausal atrophic vaginitis (N95.2) Active confirmed Problem Postmenopausal bleeding (55761614) Postmenopausal bleeding (N95.0) Active confirmed Problem Benign essential hypertension (2919563) Essential hypertension, benign (401.1) Active confirmed Major Problem Chronic ischemic heart disease (442481540) Unspecified chronic ischemic heart disease (414.9) Active confirmed Major Problem Gynecological examination normal (565601937115048) Routine gynecological examination (V72.31) Active confirmed Major Problem Screening for malignant neoplasm of colon (406005346) Special screening for malignant neoplasms, colon (V76.51) Active confirmed Major Plan Of Treatment Pending Test Test Name Order Date THIN PREP,HPV,YUMIKO IF HPV+ (>29YR)(SCRN) 06/19/2017 MM Digital Mammo Screening 06/19/2017 Insurance Providers Payer Name Payer Address Payer Phone Subscriber Number Group Number Insured Name Patient Relationship to Insured Coverage Start Date Coverage End Date [employer] [address] [place] [address] [id number] YOANA CHAVEZ Self - patient is the insured Medical (General) History Medical History History ICD Code Chronic ischemic heart disease, unspecif ied I25.9 Essential (primary) hypertension I10 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
== END 2024-10-10 13:25 | disposition home or self-care (01) ==
LOC: HO.MAMMO 13:24
PROVIDERS: PCP Internal Medicine Medical Oncology; Visit Provider Internal Medicine Medical Oncology
DX: Z12.31 Encounter for screening mammogram for malignant neoplasm of breast (principal); M81.0 Age-related osteoporosis without current pathological fracture
CPT/HCPCS: 77063; 77067; 77080

== ENCOUNTER → 2024-10-10 14:00 | Outpatient (BNV) | payer MEDICARE, SELFPAY | PROVIDERS: PCP Internal Medicine Medical Oncology; Visit Provider Radiology Diagnostic Radiology | DX: E28.39 Other primary ovarian failure (principal) | CPT/HCPCS: 77080 ==

== ENCOUNTER 2024-11-11 08:42 | Outpatient (REF) | payer MEDICARE, SELFPAY ==
--- OUTSIDE RECORDS SUMMARY | 2024-11-07 07:30 | XMS_ITS ---
Author Organization Michael Templeton III, MD Address [address] [place] [address] Care Team Providers Care Hog Cooler Name Role Phone Michael Templeton Primary Care Provider [phone] Allergies Allergen (clinical drug ingredient) Drug/Non Drug [...] Date Provider Diagnosis Michael Templeton III, MD [address] [place] [address] [facility] [address] 11/07/2024 Michael Templeton Type 2 diabetes mellitus [...] necessary. I recommended that she see her inspector process at appropriate intervals. 11/07/2024 Obesity (ICD-10 - [...] Scheduled, [place]our[place] son: Annual Exam Provider Name:Michael Templeton, 11/11/2024 02:00:00 PM, [address] [place] [address] , [place] [address], [place], [address], Progress Notes * KATHYMónica DENNISDOB: (74 yo F)Acc No.[id number]:11/07/2024 Patient: Mónica WILDER Provider: Evelyn Templeton MD :1950 A ge:74 Y S ex:Female Date:11/07/2024 Address:[facility] [address], [place] , [id number] Subjective: * Chief Complaints: * B ilateral [...] ocation of provider rendering services: { ...} [address] [place] [address] [address] [facility] [address] L ocation of patient: yair townsend listed in demographics for today's visit P atient identification confirmed using: LALA Montalvo ame T elehealth method: T elephone only. Patient not [...] dysfunctional uterine bleeding 1999normal colonoscopy, Dr. Silva, [facility] January 2010laparoscopic cholecystectomy, Dr. Garcia, [facility] 01/19/2015No history * Hospitalization/Major Diagno stic [...] Beltran. She is retired and speaks fluent French. She was born in [facility]. She is a former smoker. She has no spiritism objection to blood transfusion. * Medications: T [...] necessary. I recommended that she see her inspector process at appropriate intervals. 4 . O besity [...] MD Date: 0 11/07/2024 Generated for Maribeth almanzar/Eliane/Keriitting on: 0 11/11/2024 08:55 AM EDT History and Physical Notes * HPI (History of Present Illness) Category Sub-Category Detail Notes Telehealth Location of [facility] rendering services:: {...} [address] [place] [address] Location of patient:: address listed in demographics [...]
--- OUTSIDE RECORDS SUMMARY | 2024-11-11 08:55 | XMS_ITS | Patient Health Record ---
Author Organization [facility] Address [address] [place] [address] Care Team Providers Care Language Translator Name Role Phone DILLON BENTON MD Primary Care Provider Unavailab Татьяна Mac Unavailable [phone] Allergies No Known Allergies Reason For Referral No Information Medications Medication SIG (Take, Route, Fr equency, Duration) Notes Start Date End Date Status Aspirin EC 81MG 1 ORAL daily; Duration: -3 [facility]- 014 Active Nadolol 20MG 1 ORAL daily; Duration: -3 [facility]- 03/21/2011 Active Lisinopril 20 MG 1 tablet Orally Once a day [facility]- 2010 Active Simvastatin 40 MG 1 tablet in the even ing Orally Once a day; Duration: 30 day(s) Active Social History Tobacco Use: [...] Status W/U Status Risk Notes Problem Menopause (104648537) Menopausal and female climacteric states (N95.1) Active confirmed Problem Postmenopausal atrophic vaginitis (67820262) Postmenopausal atrophic vaginitis (N95.2) Active confirmed Problem Postmenopausal bleeding (23914491) Postmenopausal bleeding (N95.0) Active confirmed Problem Benign essential hypertension (9796710) Essential hypertension, benign (401.1) Active confirmed Major Problem Unspecified chronic ischemic heart disease (414.9) Active confirmed Major Problem Gynecological examination normal (856267814356562) Routine gynecological examination (V72.31) Active confirmed Major Problem Screening for malignant neoplasm of colon (999758561) Special screening for malignant neoplasms, colon (V76.51) Active confirmed Major Plan Of Treatment Pending Test Test Name Order Date THIN PREP,HPV,YUMIKO IF HPV+ (>29YR)(SCRN) 06/19/2017 MM Digital Mammo Screening 06/19/2017 Insurance Providers Payer Name Payer Address Payer Phone Subscriber Number Group Number Insured Name Patient Relationship to Insured Coverage Start Date Coverage End Date [employer]AGE [address] [place] [address] [id number] YOANA CHAVEZ Self - patient is the [...]
[2024-11-11 10:47] LABS: MANUAL DIFF FLAG NO
[2024-11-11 11:02] LABS: Hemoglobin A1C 142.1739 umol/L; Total Hemoglobin (HGBA1C) 2760.9501 umol/L
[2024-11-11 11:03] LABS: Hematocrit 34.0 % (37.0-47.0); Hemoglobin 10.5 g/dl (12.0-16.0); Imm Gran Abs Auto 0.02 X10*3/uL (0.00-0.03); Imm Gran Pct Auto 0.4 % (0.0-0.4); Lymphocytes Absolute Auto 1.3 X10*3/uL (1.2-4.9); Mean Corpuscular HGB Conc 30.9 g/dl (31.0-35.0); Mean Corpuscular Hemoglobin 27.4 pg (27.0-33.0); Mean Corpuscular Volume 88.8 fL (80.0-98.0); NRBC Abs Auto 0.000 X10*3/uL (0.0-0.012); NRBC Pct Auto 0.0 /100WBC (0.0-0.2); Platelet Count 196 X10*3/uL (160-400); Red Blood Count 3.83 X10*6/uL (4.20-5.50); White Blood Count 4.8 X10*3/uL (4.8-10.8)
[2024-11-11 11:57] LABS: Alanine Aminotransferase 22 U/L (0-31); Albumin Level 4.0 g/dL (3.5-5.0); Alkaline Phosphatase 40 U/L (39-117); Anion Gap 12 (12-20); Aspartate Amino Transferase 31 U/L (5-31); Blood Urea Nitrogen 21 mg/dL (9-16); Calcium 9.2 mg/dL (8.4-10.2); Carbon Dioxide 28 mmol/L (22-29); Chloride 106 mmol/L (96-108); Cholesterol 139 mg/dL (<200); Estimated Glomerular Filt Rate 46; HDL Cholesterol 36 mg/dL (>40); Potassium 4.3 mmol/L (3.3-5.1); Sodium 142 mmol/L (135-145); Total Protein 6.8 g/dL (6.5-8.0); Triglycerides 195 mg/dL (<150)
== END 2024-11-11 08:43 | disposition home or self-care (01) ==
LOC: HO.HMGCLDS 08:42
PROVIDERS: PCP Internal Medicine Medical Oncology; Visit Provider Internal Medicine Medical Oncology
DX: E11.65 Type 2 diabetes mellitus with hyperglycemia (principal); E78.5 Hyperlipidemia, unspecified; E66.9 Obesity, unspecified
CPT/HCPCS: 36415; 80053; 80061; 83036; 85025

== ENCOUNTER 2024-12-11 15:12 | Outpatient (REF) | payer MEDICARE, SELFPAY ==
--- NOTE | ~2024-12-11 | XR_ITS ---
EXAMINATION: XR LUMBOSACRAL SPINE CLINICAL INFORMATION: ACUTE LEFT-SIDED LOW BACK PAIN COMPARISON: None available. TECHNIQUE: Three views of the lumbosacral spine. FINDINGS: There is normal lumbar lordosis. There is mild thoracolumbar scoliosis. The vertebral heights and alignment are normal. There is loss of L5-S1 and L2-3 disc height. There is mild posterior spondylosis L4-5 disc level. Mild bilateral L5-S1 facet joint hypertrophy and arthropathy is noted. Rest of the disc heights are normal. There is no lytic or sclerotic process. XR/XR lumbar spine 2-3V IMPRESSION: Mild scoliosis with degenerative disc changes L2-3 and L5-S1 disc levels. Mild posterior spondylosis L4-5 disc level. No visible acute fracture or lytic process. Electronically signed by: Dwight Sandy MD 12/11/2024 04:07 PM EDT
--- OUTSIDE RECORDS SUMMARY | 2024-12-11 15:42 | XMS_ITS | Patient Health Record ---
Author Organization [facility] Address [address] [place] [address] Care Team Providers Care Care Director Name Role Phone DILLON BENTON MD Primary Care Provider Unavailab Татьяна Mac Unavailable [phone] Allergies No Known Allergies Reason For Referral No Information Medications Medication SIG (Take, Route, Fr equency, Duration) Notes Start Date End Date Status Aspirin EC 81MG 1 ORAL daily; Duration: -3 [facility] [place] Active Nadolol 20MG 1 ORAL daily; Duration: -3 [facility] 03/21/2011 Active Lisinopril 20 MG 1 tablet Orally Once a day [facility] 2010 Active Simvastatin 40 MG 1 tablet [...] Status W/U Status Risk Notes Problem Menopause (463977911) Menopausal and female climacteric states (N95.1) Active confirmed Problem Postmenopausal atrophic vaginitis (60071715) Postmenopausal atrophic vaginitis (N95.2) Active confirmed Problem Postmenopausal bleeding (57640236) Postmenopausal bleeding (N95.0) Active confirmed Problem Benign essential hypertension (4670445) Essential hypertension, benign (401.1) Active confirmed Major Problem Chronic ischemic heart disease (174141438) Unspecified chronic ischemic heart disease (414.9) Active confirmed Major Problem Gynecological examination normal (620927793103330) Routine gynecological examination (V72.31) Active confirmed Major Problem Screening for malignant neoplasm of colon (635715153) Special screening for malignant neoplasms, colon (V76.51) Active confirmed Major Plan Of Treatment Pending Test Test Name Order Date THIN PREP,HPV,YUMIKO IF HPV+ (>29YR)(SCRN) 06/19/2017 MM Digital Mammo Screening 06/19/2017 Insurance Providers Payer Name Payer Address Payer Phone Subscriber Number Group Number Insured Name Patient Relationship to Insured Coverage Start Date Coverage End Date [employer] [address] [place] [address] [id number] YOANA CHAVEZ Self - patient is the [...]
--- OUTSIDE RECORDS SUMMARY | 2024-12-11 15:43 | XMS_ITS | Patient Health Record ---
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 Name Role Phone Michael Templeton Primary Care Provider Allergies Allergen (clinical drug ingredient) Drug/Non Drug Allergy documented on EMR Reaction Allergy Type Onset Date Status amlodipine Amlodipine Besylate diarrhea,facial flush Drug Allergy Active Grapes grapes (uncoded) Unknown Allergy Act lucina Results Component Value Reference Range Notes OCCULT BLOOD x3 Reviewed date:07/26/2024 02:41:14 PM Interpretation: Performing Lab: Notes/Report: Date 1 07/26/2024 Result 1 Negative Date 2 07/27/2024 Result 2 Negative Date 3 07/26/2024 Result 3 Negative Lipid Panel Reviewed date:08/24/2024 08:52:56 AM Interpretation: Performing Lab:[facility], [address] [place] [phone] Notes/Report: Triglycerides 139 <150 mg/dL Desirable Triglyceride: less than 150 mg/dL Borderline High Triglyceride 150-199 mg/dL High Triglyceride: 200-499 mg/dL Very High Triglyceride: greater than or equal to 5OO mg/dL Cholesterol 121 <200 mg/dL Desirable Cholesterol: less than 200 mg/dL Borderline High Cholesterol: 200-239 mg/dL High Cholesterol: greater than 239 mg/dL LDL Cholesterol Calculated 62 <100 mg/dL Desirable LDL: less than 100 mg/dL Near Optimal/Above Optimal LDL: 110-129 mg/dL Borderline High LDL: 130-159 mg/dL High LDL: 160-189 mg/dL Very High LDL: greater than or equal to 190 mg/dL HDL Cholesterol 32 >40 mg/dL Desirable HDL: greater than 40 mg/dL Note: This HDL assay may give artificially low results in patients with liver disease. US retroperitoneal comp Reviewed date:03/03/2024 06:32:42 AM Interpretation: Performing Lab: Notes/Report: [address] [address] Ultrasound Report Signed Patient: Mónica Paulino MR#: [id number] : 1950 Acct:[id number] Age/Sex: 73 / F ADM Date: 12/21/23 Loc: HO.US Attending Dr: Michael Templeton MD Ordering Physician: Michael Templeton MD Date of Service: 12/21/23 Procedure(s): US retroperitoneal comp Accession Number(s): [id number] cc: Michael Templeton MD EXAMINATION: US RETROPERITONEAL COMPLETE (RENAL) CLINICAL INFORMATION: Hematuria. COMPARISON: Ultrasound abdomen complete 10/07/2014. TECHNIQUE: Real-time imaging of the kidneys and bladder. FINDINGS: RIGHT KIDNEY: 8.7 x 3.4 x 4.5 cm (SAG x AP x TRV). The kidney is normal in size and contour. There is increased renal cortical echotexture and renal cortical thinning. No calculi or focal parenchymal lesions. No hydronephrosis. LEFT KIDNEY: 10.1 x 4.4 x 4.8 cm (SAG x AP x TRV). The kidney is normal in size and contour. There is increased renal cortical echotexture and renal cortical thinning. No calculi or focal parenchymal lesions. There is mild pelviectasis, without ann hydronephrosis. BLADDER: Well distended and normal. Bilateral ureteral jets are demonstrated. Prevoid bladder volume is 250 mL. Postvoid bladder volume is 17 mL. US/US retroperitoneal comp IMPRESSION: 1. There is increased bilateral renal cortical echotexture renal cortical thinning, which can be associated with medical renal disease. 2. No renal mass, calculus or hydronephrosis is seen. 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 COMPARISON: Ultrasound abdomen complete 10/07/2014. TECHNIQUE: Real-time imaging of the kidneys and bladder. FINDINGS: RIGHT KIDNEY: 8.7 x 3.4 x 4.5 cm (SAG x AP x TRV). The kidney is normal in size and contour. There is increased renal cortical echotexture and renal cortical thinning. No calculi or focal parenchymal lesions. No hydronephrosis. LEFT KIDNEY: 10.1 x 4.4 x 4.8 cm (SAG x AP x TRV). The kidney is normal in size and contour. There is increased renal cortical echotexture and renal cortical thinning. No calculi or focal parenchymal lesions. There is mild pelviectasis , without ann hydronephrosis. BLADDER: Well disten ded and normal. Bilateral ureteral jets are demonstrated. Prevoi d bladder volume is 250 mL. Postvoid bladder volume is 17 mL. US/US retroperitoneal comp IMPRESSION: 1. There is increase d bilateral renal cortical echotexture renal cortical thinning, which can be associated with medical renal disease. 2. No renal mass, calculus or hydronephrosis is seen. Electronically brodie d by: Sergey Gunter MD 01/19/2024 05:14 PM EDT RP Dictated By: Blanche Gunter MD Signed By: <Electronically signed by Sergey Gunter MD in OV> 01/19/24 1714 DD/ 1316 TD/TT: 12/21/23 1324 [employer] Mechanic: DEL Pathology Reviewed date:03/03/2024 06:32:42 AM Interpretation: Performing Lab:[facility], [address] [place] [phone] Notes/Report: --- Name: Mónica Paulino Age/Sex: 74/F : 1950 Unit#: [id number] Attend Dr: Michael Templeton MD Re02/27/24 Status : DEP [facility] --- SPEC : [id number] RECD : 02/28/24-999 STATUS: ROSAURA BUCKLEY NUM: [id number] JENIFFER: 02/27/24-[address]: Michael Templeton MD ENTERED: 02/28/24-14 08 SP TYPE: Cytology OTHR DR: ORDERED: Cyto-enhanced Diagnosis Urine: Few atypical urothelial cells. Comment: Examination of a monolayer preparation slide shows many benign superficial squamous cells and bacteria, benign urothelial cells, and few urothelial cells with increased nuclear:cytoplasmic ratios. There are also occasional inflammatory cells, and few red blood cells. Clinical History Hematuria, unspecifi ed (12/21/23) Material Received Urine Gross Description Received is 80 cc of clear yellow fluid from which a ThinPrep slide is prepared. --- Signed (signature on file) Ana Harlingen 02/29/24 1046 --- END OF REPORT Complete Blood Count Auto Di ff Reviewed date:08/24/2024 08:52:56 AM Interpretation: Performing Lab:[facility], [address] [place] [phone] Notes/Report: White Blood Count 6.7 4.8-10.8 X10*3/uL Red Blood Count 3.89 4.20-5.50 X10*6/uL Hemoglobin 10.8 12.0-16.0 g/dl Hematocrit 33.5 37.0-47.0 % Mean Corpuscular Volume 86.1 80.0-98.0 fL Mean Corpuscular Hemoglobin 27.8 27.0-33.0 pg Mean Corpuscular HGB Conc 32.2 31.0-35.0 g/dl Red Cell Distribution Width 13.5 11.0-16.0 % Platelet Count 264 160-400 X10*3/uL Mean Platelet Volume 9.8 9.4-12.3 fL Neutrophils Percent Auto 61.8 45-73 % Imm Gran Pct Auto 0.5 0.0-0.4 % Lymphocytes Percent Auto 22.4 20-40 % Monocytes Percent Auto 11.7 2-11 % Eosinophils Percent Auto 3.0 0-4 % Basophils Percent Auto 0.6 0-2 % NRBC Pct Auto 0.0 0.0-0.2 /100WBC Neutrophils Absolute Auto 4.1 2.0-8.3 x10*3/uL Imm Gran Abs Auto 0.03 0.00-0.03 X10*3/uL Lymphocytes Absolute Auto 1.5 1.2-4.9 X10*3/uL Monocytes Absolute Auto 0.8 0.1-1.2 X10*3/uL Eosinophils Absolute Auto 0.2 0.0-0.4 X10*3/uL Basophils Absolute Auto 0.0 0.0-0.2 X10*3/uL NRBC Abs Auto 0.000 0.0-0.012 X10*3/uL XR chest 2V Reviewed date:08/24/2024 08:52:56 AM Interpretation: Performing Lab: Notes/Report: [address] [address] XRay Report Signed Patient: Mónica Paulino MR#: [id number] : 1950 Acct:[id number] Age/Sex: 74 / F ADM Date: 08/02/24 Loc: HO.DEMIANAY Attending Dr: Michael Tepmleton MD Ordering Physician: Michael Templeton MD Date of Service: 08/02/24 Procedure(s): XR chest 2V Accession Number(s): [id number] cc: Michael Templeton MD EXAMINATION: XR CHEST 2 VIEWS HISTORY: Chronic cough COMPARISON: There are no prior studies for comparison. FINDINGS: PA and lateral views of the chest are submitted. The lungs are expanded and clear. There is no pleural effusion, pneumothorax, or pulmonary vascular congestion. The heart is normal in size. The patient is status post median sternotomy and CABG. The bones are intact. XR/XR chest 2V IMPRESSION: Clear lungs. 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 FINDINGS: PA and lateral views of the chest are submitted. The lungs are expanded and shanna ar. There is no pleural effusion, pneumothorax, or pulmonary vascular congestion. The heart is normal in size. The patient is status po st median sternotomy and CABG. The bones are intact. XR/XR chest 2V IMPRESSION: Clear lungs. Electronically brodie d by: Michael Dimas MD 08/02/2024 01:27 PM EDT RP Dictated By: Michael Dimas MD Signed By: <Electronically signed by Michael Dimas MD in OV> 08/02/24 1327 DD/ 1204 TD/TT: 08/02/241207 [employer] Mechanic: JUD tomosynthesis screening B I Reviewed date:11/08/2024 07:19:59 PM Interpretation: Performing Lab: Notes/Report: [facility] [address] [place] [address] Mammography Report Signed Patient: Mónica Paulino MR#: [id number] : 1950 Acct:[id number] Age/Sex: 74 / F ADM Date: 10/10/24 Loc: HO.MAMMO Attending Dr: Michael Templeton MD Ordering Physician: Michael Templeton MD Results: 1Nega e Date of Service: 10/10/24 Follow Up: 1 Year From Orig inal Mammogram Procedure(s): MM tomosynthesis screening BI Accession Number(s): [id number] cc: Michael Templeton MD EXAMINATION: MM SCREENING DIGITAL BREAST TOMOSYNTHESIS, BILATERAL CLINICAL INFORMATION: Screening. Asymptomatic. COMPARISON: Mammography: Comparison is made with available priors TECHNIQUE: Digital breast mammography with tomosynthesis is performed in both the craniocaudal and mediolateral oblique views along with computer-aided detection (CAD). FINDINGS: There are scattered areas of fibroglandular density (ACR BI-RADS breast composition Category b). There are no significant masses, abnormal calcifications, or other abnormalities. MM/MM tomosynthesis screening BI IMPRESSION: No mammographic evidence of malignancy. ASSESSMENT: BI-RADS BI-RADS 1 - Negative RECOMMENDATION: Routine annual mammography screening. 1 year F/U This examination should not preclude the clinical evaluation of a suspicious palpable abnormality. This patient's information was entered into a reminder system with a target due date for their next mammogram. Electronically signed by: Mercedes Samuels DO 10/14/2024 05:23 PM EDT RP Dictated By: Mercedes Samuels DO Signed By: <Electronically signed by Mercedes Samuels DO in OV> 10/14/24 1723 DD/ 1340 TD/TT: 10/10/24 1355 [employer] Mechanic: [facility] [address] [place] [address] Mammography Report Signed Patient: Mónica Paulino MR#: [id number] : 1950 Acct:[id number] Age/Sex: 74 / F ADM Date: 10/10/24 Loc: HO.MAMMO Attending Dr: Michael Templeton MD Ordering Physician: Michael Templeton MD Results: 1Negativ e Date of Service: 10/10/24 Follow Up: 1 Year From Orig inal Mammogram Procedure(s): MM tomosynthesis screening BI Accession Number(s): [id number] cc: Michael Templeton MD EXAMINATION: MM SCREENING DIGITAL BREAST TOMOSYNTHESIS, BILATERAL CLINICAL INFORMATION: Screening. Asymptomatic. COMPARISON: Mammography: Compari son is made with available priors TECHNIQUE: Digital breast mammography with tomosynthesis is performed in both the craniocaudal and mediolateral oblique views along with computer-aided detection (CAD). FINDINGS: There are scattered areas of fibroglandular density (ACR BI-RADS breast composition Category b). There are no significant masses, abnormal calcifications, or other abnormalities. MM/MM tomosynthesis screening BI IMPRESSION: No mammographic evidence of malignancy. ASSESSMENT: BI-RADS BI-RADS 1 - Negative RECOMMENDATION: Routine annual mammography screening. 1 year F/U This examination avtar uld not preclude the clinical evaluation of a suspicious palpable abnormality. This patient's information was entered into a reminder system with a target due date for their next mammogram. Electronically brodie d by: Mercedes Samuels DO 10/14/2024 05:23 PM EDT Dictated By: Mercedes Samuels DO Signed By: <Electronically signed by Mercedes Samuels DO in OV> 10/14/24 1723 DD/ 1340 TD/TT: 10/10/24 1355 [employer] Mechanic: XR DEXA axial skeleton Reviewed date:11/08/2024 07:19:59 PM Interpretation: Performing Lab: Notes/Report: [facility] [address] [place] [address] Mammography Report Signed Patient: Mónica Paulino MR#: [id number] : 1950 Acct:[id number] Age/Sex: 74 / F ADM Date: 10/10/24 Loc: HO.MAMMO Attending Dr: Michael Templeton MD Ordering Physician: Michael Templeton MD Results: Date of Service: 10/10/24 Follow Up: Procedure(s): XR DEXA axial skeleton Accession Number(s): [id number] cc: Michael Templeton MD EXAMINATION: DXA BONE DENSITY AXIAL HISTORY: M81.0 TECHNIQUE: [employer] Dual energy absorptiometry (DEXA) of the lumbar spine, total left hip, and femoral neck was performed. COMPARISON: Comparison is made with the prior examination dated 11/01/2016. FINDINGS: The bone mineral density of the lumbar spine is 1.530, corresponding to a T-score of 3.0, and a Z-score of 4.2. This is indicative of normal bone mineral density. This represents a BMD change of 7.2% compared to the prior exam. This is statistically significant. The bone mineral density of the left total hip is 1.260, corresponding to a T-score of 2.0, and a Z-score of 3.4. This is indicative of normal bone mineral density. This represents a BMD change of 0.3% compared to the prior exam. This is not statistically significant. The bone mineral density of the left femoral neck is 1.137, corresponding to a T-score of 0.7, and a Z-score of 2.3. This is indicative of normal bone mineral density. This represents a BMD change of 1.1% compared to the prior exam. MM/XR DEXA axial skeleton IMPRESSION: Based on bone mineral density, and according to World Health Organization (WHO) criteria, the diagnosis is consistent with normal bone mineral density. All bone density values are in grams per centimeter squared (g/cm2). Statistically, 68% of repeat scans fall within 1 SD (+/- 0.010 g/cm2 for AP spine L1-L4) and 1 SD (+/- 0.012 g/cm2 for femur total) FRAX is a trademark of the [employer] [place] for Metabolic Bone Disease, a World Health Organization (WHO) Collaborating Center. Electronically signed by: Michael Dimas MD 10/10/2024 02:43 PM EDT RP Dictated By: Michael Dimas MD Signed By: <Electronically signed by Michael Dimas MD in OV> 10/10/24 1443 DD/ 1330 TD/TT: 10/10/24 1400 [employer] Mechanic: [place] [facility] [address] [place], [place] [address] Mammography Report Signed Patient: Mónica Paulino MR#: [id number] : 1950 Acct:[id number] Age/Sex: 74 / F ADM Date: 10/10/24 Loc: GIANNA Attending Dr: Michael Templeton MD Ordering Physician: Michael Templeton MD Results: Date of Service: 10/10/24 Follow Up: Procedure(s): XR DEX A axial skeleton Accession Number(s): [id number] cc: Michael Templeton MD EXAMINATION: DXA BON E DENSITY AXIAL HISTORY: M81.0 TECHNIQUE: [employer] Dual energy absorptiometry (DEXA) of the lumbar spine, total left hip, and femoral neck was performed. COMPARISON: Comparis on is made with the prior examination dated 11/01/2016. FINDINGS: The bone mineral density of the lumbar spine is 1.530, corresponding to a T-score of 3.0, an d a Z-score of 4.2. This is indicative of normal bone mineral density. This represents a BM D change of 7.2% compared to the prior exam. This is statistically significant. The bone mineral density of the left total hip is 1.260, corresponding to a T-score of 2.0, and a Z-score of 3.4. This is indicative of normal bone mineral density. This represents a BM D change of 0.3% compared to the prior exam. This is not statistically significant. The bone mineral density of the left femoral neck is 1.137, corresponding to a T-score of 0.7, and a Z-score of 2.3. This is indicative of normal bone mineral density. This represents a BM D change of 1.1% compared to the prior exam. ___ MM/XR DEXA axial skeleton IMPRESSION: Based on bone minera l density, and according to World Health Organization (WHO) criteria, the diagnosis is consistent with normal bone mineral density. All bone density patricia ues are in grams per centimeter squared (g/cm2). Statistically, 68% o f repeat scans fall within 1 SD (+/- 0.010 g/cm2 for AP spine L1-L4) and 1 SD (+/- 0.012 g/cm2 for femur total) FRAX is a trademark of the [employer] [place] for Metabolic Bone Disease, a World Health Organization (WHO) Collaborating Center. Electronically brodie d by: Michael Dimas MD 10/10/2024 02:43 PM EDT RP Dictated By: Michael Dimas MD Signed By: <Electronically signed by Michael Dimas MD in OV> 10/10/24 1443 DD/ 1330 TD/TT: 10/10/24 1400 [employer] Mechanic: MAMMOGRAM DIGITAL BILATERAL SCREEN Reviewed date:11/11/2024 01:35:27 PM Interpretation:undefined Performing Lab: Notes/Report: undefined Complete Blood Count Auto Di ff Reviewed date:11/11/2024 01:33:48 PM Interpretation: Performing Lab:[facility], [address] [place] [phone] Notes/Report: White Blood Count 4.8 4.8-10.8 X10*3/uL Red Blood Count 3.83 4.20-5.50 X10*6/uL Hemoglobin 10.5 12.0-16.0 g/dl Hematocrit 34.0 37.0-47.0 % Mean Corpuscular Volume 88.8 80.0-98.0 fL Mean Corpuscular Hemoglobin 27.4 27.0-33.0 pg Mean Corpuscular HGB Conc 30.9 31.0-35.0 g/dl Red Cell Distribution Width 14.5 11.0-16.0 % Platelet Count 196 160-400 X10*3/uL Mean Platelet Volume 10.7 9.4-12.3 fL Neutrophils Percent Auto 57.7 45-73 % Imm Gran Pct Auto 0.4 0.0-0.4 % Lymphocytes Percent Auto 26.5 20-40 % Monocytes Percent Auto 12.1 2-11 % Eosinophils Percent Auto 2.9 0-4 % Basophils Percent Auto 0.4 0-2 % NRBC Pct Auto 0.0 0.0-0.2 /100WBC Neutrophils Absolute Auto 2.8 2.0-8.3 x10*3/uL Imm Gran Abs Auto 0.02 0.00-0.03 X10*3/uL Lymphocytes Absolute Auto 1.3 1.2-4.9 X10*3/uL Monocytes Absolute Auto 0.6 0.1-1.2 X10*3/uL Eosinophils Absolute Auto 0.1 0.0-0.4 X10*3/uL Basophils Absolute Auto 0.0 0.0-0.2 X10*3/uL NRBC Abs Auto 0.000 0.0-0.012 X10*3/uL Comprehensive [place]. Panel Fa st Reviewed date:11/11/2024 01:33:48 PM Interpretation: Performing Lab:[facility], [address] [place] [phone] Notes/Report: Sodium 142 135-145 mmol/L Potassium 4.3 3.3-5.1 mmol/L Chloride 106 96-108 mmol/L Carbon Dioxide 28 22-29 mmol/L Anion Gap 12 12-20 Blood Urea Nitrogen 21 9-16 mg/dL Creatinine 1.15 0.5-1.4 mg/dL Estimated Glomerular Filt Rate 46 Chronic Kidney Disease: Estimated GFR < 60 mL/min/1.73m2 Severe Kidney Disease: Estimated GFR < 15 mL/min/1.73m2 Glucose Fasting 142 60-99 mg/dL A fasting glucose of 126 mg/dl or greater on more than one occasion is considered diagnostic of diabetes. Calcium 9.2 8.4-10.2 mg/dL Bilirubin Total 0.3 0.0-1.0 mg/dL Aspartate Amino Transferase 31 5-31 U/L Alanine Aminotransferase 22 0-31 U/L Total Protein 6.8 6.5-8.0 g/dL Albumin Level 4.0 3.5-5.0 g/dL Alkaline Phosphatase 40 39-117 U/L Lipid Panel Reviewed date:11/11/2024 01:33:48 PM Interpretation: Performing Lab:[facility], [address] [place] [phone] Notes/Report: Triglycerides 195 <150 mg/dL Desirable Triglyceride: less than 150 mg/dL Borderline High Triglyceride 150-199 mg/dL High Triglyceride: 200-499 mg/dL Very High Triglyceride: greater than or equal to 5OO mg/dL Cholesterol 139 <200 mg/dL Desirable Cholesterol: less than 200 mg/dL Borderline High Cholesterol: 200-239 mg/dL High Cholesterol: greater than 239 mg/dL LDL Cholesterol Calculated 64 <100 mg/dL Desirable LDL: less than 100 mg/dL Near Optimal/Above Optimal LDL: 110-129 mg/dL Borderline High LDL: 130-159 mg/dL High LDL: 160-189 mg/dL Very High LDL: greater than or equal to 190 mg/dL HDL Cholesterol 36 >40 mg/dL Desirable HDL: greater than 40 mg/dL Note: This HDL assay may give artificially low results in patients with liver disease. Hemoglobin A1c Reviewed date:11/11/2024 01:33:48 PM Interpretation: Performing Lab:[facility], [address] [place] [phone] Notes/Report: Hemoglobin A1c % 6.9 <6.0 % Hemoglobin A1C Reference Range Adults: 4.8 - 6.0 % Non diabetic: < 6.0 % Goal: < 7.0 % Additional Action Suggested: > 8.0 % Note: Hemoglobin A1c results are invalid for patients with abnormal amounts of HbF. Blood transfusions may impact the HbA1c concentration in the patient sample. Estimated Average Glucose 151 eAG = Estimated average glucose which is %A1C expressed as average glucose, using the formula of the [id number]-[id number] Average Glucose study (ADAG), Diabetes Care, Vol.31,#8, Dec. 2007 Reason For Referral Reason Consult and Treat Prefer Woman Provider Diagnosis 1 Hematuria, unspecifi ed (R31.9) Referral Organization Michael Templeton III, MD Referring Provider First Name Michael Referring Provider Last Name Yokasta Referring Provider Speciality Internal M edicine Referred Provider [facility] [place], Urology Referred Provider Specialty Urology General Notes Lisa Escobar 2023 09:34:44 AM EDT > waiting for ultrasound of renal and bladder, Lisa Escobar 12/20/2023 03:55:39 PM > Patient is having US 12/21/2023 at [facility]. Sent Referral to [facility] with progress note. Will send over US when received. Referral Priority Routine Referral Appointment Date 04/10/2024 Medications Medication SIG (Take, Route, Frequency, Duration) Notes Start Date End Date Status FreeStyle Lite Test - use to check fasting blood sugars on Mondays , Monday and Fridays In Vitro DX: Diabetes E11.9 11/11/2024 Active dexAMETHasone 2 MG 1 tablet Orally twice a day for 10 days 12/11/2024 Active Ciprofloxacin HCl 250 MG 1 tablet Orally every 12 hrs 12/03/2024 Active Lancets 30G - use to check fasting blood sugars on Monday and Fridays DX: Diabetes E11.9 11/11/2024 Active Lisinopril 40 MG 1 tablet Orally Once a day Active [facility] Isopropyl Alcohol Wipes 70 % use to check blood sugars Externally On Wednesdays and Fridays DX: Diabetes E11.9 11/11/2024 Active Nadolol 20 MG 1 tablet Orally Once a day Active Gauze Pads 3 X3 use to check blood sugars Monday and Fridays DX: Diabetes E11.9 11/11/2024 Active Cyclobenzaprine HCl 10 MG 1 tablet Orally three ties a day Active dexAMETHasone 2 MG 1 tablet Orally twice a day 10/21/2024 Active metFORMIN HCl 500 MG 1 tablet with a meal Orally Once a day 11/11/2024 Active FreeStyle Lite w/Device use to check fasting blood sugars Monday and Fridays DX: Diabetes E11.9 11/11/2024 Active Nitroglycerin 0.4 MG 1 tablet under the tongue and allow to dissolve as needed Sublingual every 0 hrs 10/20/2011 Active Adult Aspirin EC Low Strength 81 MG 1 tablet Orally Once a day Active Rosuvastatin Calcium 40 MG Oral Active Social History Tobacco Use: Social History [...] ast year? No Points 0 Interpretation Negative Problems Problem Type SNOMED Code ICD Code Onset Dates Problem Status W/U Status Risk Notes Problem 8633300 Former smoker (Z87.891) Active confirmed She is highly motivated not to smoke and has a plan for prevention of relapse. Problem 43503867 Hyperlipidemia (E78.5) Active confirmed Comprehensive blood work including a fasting lipid profile has been ordered. Her lipids have been maintained in the normal range. Problem 003499061 Obesity (E66.9) Active confirmed He has lost 4 pounds But remains obese. We have reviewed her weight loss strategy today. Problem [id number] Gross hematuria (R31.0) Active confirmed She recently had an episode of gross hematuria. An ultrasound of the genitourinary tract showed no abnormality. A urology consultation and cystoscopy are being done. Urine cytology shows no tumor cells. She has had only normal urinating since that time. Problem [id number] Coronary artery disease (I25.10) Active confirmed She reports no exertional chest pain since her last visit. She has had no palpitations or dyspnea on exertion. No change in her medication was necessary. I recommended that she see her environmental engineering technician at appropriate intervals. Problem [id number] Essential hypertension (I10) Active confirmed Her blood pressure has been stable. She is compliant with all of her medications. No change in her regimen as necessary today. I A repeat visit was arranged recommended aggressive weight loss and sodium restriction.The systolic blood pressure 141 is slightly elevated will be observed carefully. Problem 193650514 Anemia of chronic disease (D63.8) Active confirmed She denies any recent bleeding. A CBC is pending. Problem 55910176 Carpal tunnel syndrome (G56.00) Active confirmed The intermittent tingling in the left hand may be nerve compression in the carpal tunnel. It is mild and will be observed at this time. There is no indication for surgery at this time. Problem Osteoporosis (07000951) Osteoporosis (M81.0) Active confirmed She continues on calcium and vitamin D. A bone density test shows improvement towards normal bone density. Problem [id number] Insomnia (G47.00) Active confirmed I have prescribed 10 5 mg LPM tablets. I instructed her to take these as needed so she could get back into a resting state. I did not recommend that she take sleeping pills every night. Problem 33329865 Viral syndrome (B34.9) Active confirmed He will be treated conservatively. Blood work will be obtained. I ordered a chest x-ray. She'll follow-up by telephone every 48 hours. Problem [id number] Vertigo (R42) Active confirmed This problem is addressed. The episodic vertigo is well controlled meclozine. Problem [id number] Cholelithiasis (K80.20) Active confirmed She has had no symptoms of cholelithiasis and denies abdominal pain. Problem 660187307 Acute left-sided low back pain with left-sided sciatica (M54.42) Active confirmed Problem 844029074 Varicose veins of left lower extremity with pain (I83.812) Active confirmed She has not h ad recent pain from her varicose veins. She will use heat and rest. If they become painful. Otherwise, she will elevate her legs periodically and use support hose. Problem 21964570 Left medial knee pain (M25.562) Active confirmed She reports that the knee pain has resolved. Problem 79299118 Type 2 diabetes mellitus with hyperglycemia, without long-term current use of insulin (E11.65) Active confirmed The hemoglo bin A1c is 6.9 on the fasting glucose is 142. Therapy with metformin has been initiated. Vital Signs Heart Rate 64 /min 12/11/2024 Temperature 98.1 degrees Fahrenheit 12/11/2024 Blood pressure diastolic 74 mm Hg 12/11/2024 Height 60 in 12/11/2024 Blood pressure systolic 177 mm Hg 12/11/2024 Weight 170 lbs 12/11/2024 BMI 33.2 kg/m2 12/11/2024 Encounters Encounter Location Date Provider Diagnosis Michael Templeton III, MD [address] [place] [address] [place] [id number] 12/11/2024 Michael Templeton Type 2 diabetes adelita itus with hyperglycemia, without long-term current use of insulin E11.65 and Acute left-sided low back pain with left-sided sciatica M54.42 Michael Templeton III, MD [address] [place] [address] [place] [phone] 12/12/2023 Michael Templeton Essential hypertensi on I10 ; Hematuria, unspecified R31.9 ; Coronary artery disease I25.10 ; Obesity E66.9 ; Hyperlipidemia E78.5 ; Cholelithiasis K80.20 ; Osteoporosis M81.0 ; Left medial knee pain M25.562 ; Insomnia G47.00 ; Varicose veins of left lower extremity with pain I83.812 ; Type 2 diabetes mellitus with hyperglycemia, without long-term current use of insulin E11.65 and Former smoker Z87.891 Michael Templeton III, MD [address] [place] [address] [place] [id number] 02/21/2024 Michael Templeton Essential hypertensi on I10 ; Coronary artery disease I25.10 ; Gross hematuria R31.0 ; Obesity E66.9 ; Cholelithiasis K80.20 ; Former smoker Z87.891 ; Carpal tunnel syndrome G56.00 ; Osteoporosis M81.0 and Type 2 diabetes mellitus with hyperglycemia, without long-term current use of insulin E11.65 Michael Templeton III, MD [address] [place] [address] [place] [address] 03/08/2024 Michael Templeton Essential hypertensi on I10 ; Coronary artery disease I25.10 ; Hyperlipidemia E78.5 ; Anemia of chronic disease D63.8 ; Type 2 diabetes mellitus with hyperglycemia, without long-term current use of insulin E11.65 ; Gross hematuria R31.0 ; Obesity E66.9 ; Former smoker Z87.891 and Cholelithiasis K80.20 Michael Templeton III, MD [address] [place] [address] [place] [address] 07/22/2024 Michael Templeton Essential hypertensi on I10 ; Coronary artery disease I25.10 ; Osteoporosis M81.0 ; Encounter for screening mammogram for malignant neoplasm of breast Z12.31 ; Obesity E66.9 ; Hyperlipidemia E78.5 ; Former smoker Z87.891 ; Vertigo R42 and Varicose veins of left lower extremity with pain I83.812 Michael Templeton III, MD [address] [place] [address] [place] [id number] 07/26/2024 Michael Templeton Screen for colon can cer Z12.11 Michael Templeton III, MD [address] [place] [address] [place] [address] 07/30/2024 Michael Templeton Essential hypertensi on I10 ; Coronary artery disease I25.10 ; Former smoker Z87.891 ; Obesity E66.9 ; Type 2 diabetes mellitus with hyperglycemia, without long-term current use of insulin E11.65 and Viral syndrome B34.9 Michael Templeton III, MD [address] [place] [address] [place] [address] 08/02/2024 Michael Templeton Obesity E66.9 ; Type 2 diabetes mellitus with hyperglycemia, without long-term current use of insulin E11.65 ; Hyperlipidemia E78.5 ; Coronary artery disease I25.10 ; Former smoker Z87.891 ; Left medial knee pain M25.562 ; Osteoporosis M81.0 ; Gross hematuria R31.0 and Viral syndrome B34.9 Michael Templeton III, MD [address] [place] [address] [place] [address] 11/07/2024 Michael Templeton Type 2 diabetes adelita itus with hyperglycemia, without long-term current use of insulin E11.65 ; Essential hypertension I10 ; Coronary artery disease I25.10 ; Obesity E66.9 ; Osteoporosis M81.0 ; Former smoker Z87.891 and Varicose veins of left lower extremity with pain I83.812 Michael Templeton III, MD [address] [place] [address] [place] [address] 11/11/2024 Michael Templeton Type 2 diabetes adelita itus with hyperglycemia, without long-term current use of insulin E11.65 ; Coronary artery disease I25.10 ; Obesity E66.9 ; Essential hypertension I10 ; Hyperlipidemia E78.5 and Former smoker Z87.891 Michael Templeton III, MD [address] [place] [address] [place] [address] 06/17/2024 Michael Templeton III, MD [address] [place] [address] [place] [address] 12/20/2023 Michael Templeton III, MD [address] [place] [address] [place] [address] 12/20/2023 Michael Templeton III, MD [address] [place] [address] [place] [address] 02/28/2024 Michael Templeton Essential hypertensi on I10 Michael Templeton III, MD [address] [place] [address] [place] [address] 07/22/2024 Michael Templeton III, MD [address] [place] [address] [place] [address] 08/01/2024 Michael Templeton III, MD [address] [place] [address] [place] [address] 08/06/2024 Michael Templeton III, MD [address] [place] [address] [place] [address] 08/06/2024 Michael Templeton III, MD [address] [place] [address] [place] [address] 10/18/2024 Michael Templeton III, MD [address] [place] [address] [place] [address] 10/18/2024 Michael Templeton III, MD [address] [place] [address] [place] [address] 10/21/2024 Michael Templeton III, MD [address] [place] [address] [place] [address] 10/21/2024 Michael Templeton III, MD [address] [place] [address] [place] [address] 11/06/2024 Michael Templeton III, MD [address] [place] [address] [place] [address] 12/03/2024 Michael Templeton III, MD [address] [place] [address] [place] [address] 12/09/2024 Michael Templeton Assessments Encounter Date Diagnosis (ICD Code) Assessment Notes Treat ment Notes Treatment Clinical Notes 12/11/2024 Type 2 diabetes mellitus with hyperglycemia, without long-term current use of insulin (ICD-10 - E11.65) The hemoglobin A1c is 6.9 on the fasting glucose is 142. Therapy with metformin has been initiated. 12/12/2023 Hematuria, unspecified (ICD-10 - R31.9) She had one episode of bright red urine. She will have an ultrasound of her urinary tract and a urology referral. 12/12/2023 Essential hypertension (ICD-10 - I10) Her blood pressure today is stable. She is compliant with all of her medications. No change in her regimen as necessary today. I A repeat visit was arranged recommended aggressive weight loss and sodium restriction. 02/21/2024 Coronary artery disease (ICD-10 - I25.10) She reports no exertional chest pain since her last visit. She has had no palpitations or dyspnea on exertion. No change in her medication was necessary. I recommended that she see her environmental engineering technician at appropriate intervals. 02/21/2024 Essential hypertension (ICD-10 - I10) Her blood pressure has been stable. She is compliant with all of her medications. No change in her regimen as necessary today. I A repeat visit was arranged recommended aggressive weight loss and sodium restriction. 03/08/2024 Coronary artery disease (ICD-10 - I25.10) She reports no exertional chest pain since her last visit. She has had no palpitations or dyspnea on exertion. No change in her medication was necessary. I recommended that she see her environmental engineering technician at appropriate intervals. 03/08/2024 Essential hypertension (ICD-10 - I10) Her blood pressure has been stable. She is compliant with all of her medications. No change in her regimen as necessary today. I A repeat visit was arranged recommended aggressive weight loss and sodium restriction. 07/22/2024 Coronary artery disease (ICD-10 - I25.10) She reports no exertional chest pain since her last visit. She has had no palpitations or dyspnea on exertion. No change in her medication was necessary. I recommended that she see her environmental engineering technician at appropriate intervals. 07/22/2024 Essential hypertension (ICD-10 - I10) Her blood pressure has been stable. She is compliant with all of her medications. No change in her regimen as necessary today. I A repeat visit was arranged recommended aggressive weight loss and sodium restriction.The systolic blood pressure 141 is slightly elevated will be observed carefully. 07/26/2024 Screen for colon cancer (ICD-10 - Z12.11) 07/30/2024 Coronary artery disease (ICD-10 - I25.10) She reports no exertional chest pain since her last visit. She has had no palpitations or dyspnea on exertion. No change in her medication was necessary. I recommended that she see her environmental engineering technician at appropriate intervals. 07/30/2024 Essential hypertension (ICD-10 - I10) Her blood pressure has been stable. She is compliant with all of her medications. No change in her regimen as necessary today. I A repeat visit was arranged recommended aggressive weight loss and sodium restriction.The systolic blood pressure 141 is slightly elevated will be observed carefully. 08/02/2024 Obesity (ICD-10 - E66.9) He has lost 6 pounds now weighing 177. Her body mass index is 34.56. We reviewed her weight loss strategy in depth today. 08/02/2024 Type 2 diabetes mellitus with hyperglycemia, without [...] slightly elevated will be observed carefully. 11/07/2024 Type 2 diabetes mellitus with hyperglycemia, without long-term current use of insulin (ICD-10 - E11.65) No change was necessary in her medication. CBC and general chemistry profile, hemoglobin A1c and microalbumin are pending 11/11/2024 Coronary artery disease (ICD-10 - I25.10) She reports no exertional chest pain since her last visit. She has had no palpitations or dyspnea on exertion. No change in her medication was necessary. I recommended that she see her environmental engineering technician at appropriate intervals. 11/11/2024 Type 2 diabetes mellitus with hyperglycemia, without long-term current use of insulin (ICD-10 - E11.65) The hemoglobin A1c is 6.9 on the fasting glucose is 142. Therapy with metformin has been initiated. 02/28/2024 Essential hypertension (ICD-10 - I10) Her blood pressure has been stable. She is compliant with all of her medications. No change in her regimen as necessary today. I A repeat visit was arranged recommended aggressive weight loss and sodium restriction. 12/11/2024 Acute left-sided low back pain with left-sided sciatica (ICD-10 - M54.42) 12/12/2023 Coronary artery disease (ICD-10 - I25.10) She reports no exertional chest pain since her last visit. She has had no palpitations or dyspnea on exertion. No change in her medication was necessary. I recommended that she see her environmental engineering technician at appropriate intervals. 02/21/2024 Gross hematuria (ICD-10 - R31.0) The ultrasound of the urinary tract shows no abnormalities. She has had no further gross hematuria. She has an appointment with urology for cystoscopy. 03/08/2024 Hyperlipidemia (ICD-10 - E78.5) Comprehensive blood work with a fasting lipid profile has been ordered by her to her next visit. No change in her current medication was made. 07/22/2024 Osteoporosis (ICD-10 - M81.0) She continues on calcium and vitamin D. A bone density test will be done periodically. She denies any skeletal pain. 07/30/2024 Former smoker (ICD-10 - Z87.891) She is highly motivated not to smoke and has a plan for prevention of relapse. 08/02/2024 Hyperlipidemia (ICD-10 - E78.5) Comprehensive blood work including a fasting lipid profile has been ordered. Her lipids have been maintained in the normal range. 11/07/2024 Coronary artery disease (ICD-10 - I25.10) She reports no exertional chest pain since her last visit. She has had no palpitations or dyspnea on exertion. No change in her medication was necessary. I recommended that she see her environmental engineering technician at appropriate intervals. 11/11/2024 Obesity (ICD-10 - E66.9) He has lost 4 pounds But remains obese. We have reviewed her weight loss strategy today. 12/12/2023 Obesity (ICD-10 - E66.9) Her weight is stable with a body mass index of 35. We had a prolonged discussion about weight loss, exercise diet sodium restriction calorie reduction. 02/21/2024 Obesity (ICD-10 - E66.9) Her weight is stable with a body mass index of 35. We had a prolonged discussion about weight loss, exercise diet sodium restriction calorie reduction. 03/08/2024 Anemia of chronic disease (ICD-10 - D63.8) She denies any recent bleeding. A CBC is pending. 07/22/2024 Encounter for screening mammogram for malignant neoplasm of breast (ICD-10 - Z12.31) Her annual screening mammogram has been scheduled. 07/30/2024 Obesity (ICD-10 - E66.9) Her weight is stable with a body mass index of 35. We had a prolonged discussion about weight loss, exercise diet sodium restriction calorie reduction. 08/02/2024 Coronary artery disease (ICD-10 - I25.10) She reports no exertional chest pain since her last visit. She has had no palpitations or dyspnea on exertion. No change in her medication was necessary. I recommended that she see her environmental engineering technician at appropriate intervals. 11/07/2024 Obesity (ICD-10 - E66.9) He has lost 6 pounds now weighing 177. Her body mass index is 34.56. We reviewed her weight loss strategy in depth today. 11/11/2024 Essential hypertension (ICD-10 - I10) Her blood pressure has been stable. She is compliant with all of her medications. No change in her regimen as necessary today. I A repeat visit was arranged recommended aggressive weight loss and sodium restriction.The systolic blood pressure 141 is slightly elevated will be observed carefully. 12/12/2023 Hyperlipidemia (ICD-10 - E78.5) Comprehensive blood work with a fasting lipid profile has been ordered. 02/21/2024 Cholelithiasis (ICD-10 - K80.20) She has had no symptoms of cholelithiasis and denies abdominal pain. 03/08/2024 Type 2 diabetes mellitus with hyperglycemia, without long-term current use of insulin (ICD-10 - E11.65) No change was necessary in her medication. CBC and general chemistry profile, hemoglobin A1c and microalbumin are pending 07/22/2024 Obesity (ICD-10 - E66.9) Her weight is stable with a body mass index of 35. We had a prolonged discussion about weight loss, exercise diet sodium restriction calorie reduction. 07/30/2024 Type 2 diabetes mellitus with hyperglycemia, without long-term current use of insulin (ICD-10 - E11.65) No change was necessary in her medication. CBC and general chemistry profile, hemoglobin A1c and microalbumin are pending 08/02/2024 Former smoker (ICD-10 - Z87.891) She is highly motivated not to smoke and has a plan for prevention of relapse. 11/07/2024 Osteoporosis (ICD-10 - M81.0) She continues on calcium and vitamin D. A bone density test shows improvement towards normal bone density. 11/11/2024 Hyperlipidemia (ICD-10 - E78.5) Comprehensive blood work including a fasting lipid profile has been ordered. Her lipids have been maintained in the normal range. 12/12/2023 Cholelithiasis (ICD-10 - K80.20) She has had no symptoms of cholelithiasis and denies abdominal pain. 02/21/2024 Former smoker (ICD-10 - Z87.891) She is highly motivated not to smoke and has a plan for prevention of relapse. 03/08/2024 Gross hematuria (ICD-10 - R31.0) She recently had an episode of gross hematuria. An ultrasound of the genitourinary tract showed no abnormality. A urology consultation and cystoscopy are being done. Urine cytology shows no tumor cells. She has had only normal urinating since that time. 07/22/2024 Hyperlipidemia (ICD-10 - E78.5) Comprehensive blood work with a fasting lipid profile has been ordered by her to her next visit. No change in her current medication was made. 07/30/2024 Viral syndrome (ICD-10 - B34.9) She will continue with [id number] medication. I suggested she be tested for influenza and santiago virus. She is considering this. She will report in 48 hours but immediately if she worsens. 08/02/2024 Left medial knee pain (ICD-10 - M25.562) She reports that the knee pain has resolved. 11/07/2024 Former smoker (ICD-10 - Z87.891) She is highly motivated not to smoke and has a plan for prevention of relapse. 11/11/2024 Former smoker (ICD-10 - Z87.891) She is highly motivated not to smoke and has a plan for prevention of relapse. 12/12/2023 Osteoporosis (ICD-10 - M81.0) She will continue on current therapy. She says she is compliant with the calcium and vitamin D. 02/21/2024 Carpal tunnel syndrome (ICD-10 - G56.00) The intermittent tingling in the left hand may be nerve compression in the carpal tunnel. It is mild and will be observed at this time. There is no indication for surgery at this time. 03/08/2024 Obesity (ICD-10 - E66.9) Her weight is stable with a body mass index of 35. We had a prolonged discussion about weight loss, exercise diet sodium restriction calorie reduction. 07/22/2024 Former smoker (ICD-10 - Z87.891) She is highly motivated not to smoke and has a plan for prevention of relapse. 08/02/2024 Osteoporosis (ICD-10 - M81.0) She continues on calcium and vitamin D. A bone density test will be done periodically. She denies any skeletal pain. 11/07/2024 Varicose veins of left lower extremity with pain (ICD-10 - I83.812) She has not had recent pain from her varicose veins. She will use heat and rest. If they become painful. Otherwise, she will elevate her legs periodically and use support hose. 12/12/2023 Left medial knee pain (ICD-10 - M25.562) She reports that the knee pain has resolved. 02/21/2024 Osteoporosis (ICD-10 - M81.0) She will continue on current therapy. She says she is compliant with the calcium and vitamin D. 03/08/2024 Former smoker (ICD-10 - Z87.891) She is highly motivated not to smoke and has a plan for prevention of relapse. 07/22/2024 Vertigo (ICD-10 - R42) This problem is addressed. The episodic vertigo is well controlled meclozine. 08/02/2024 Gross hematuria (ICD-10 - R31.0) She recently had an episode of gross hematuria. An ultrasound of the genitourinary tract showed no abnormality. A urology consultation and cystoscopy are being done. Urine cytology shows no tumor cells. She has had only normal urinating since that time. 12/12/2023 Insomnia (ICD-10 - G47.00) I have prescribed 10 5 mg LPM tablets. I instructed her to take these as needed so she could get back into a resting state. I did not recommend that she take sleeping pills every night. 02/21/2024 Type 2 diabetes mellitus with hyperglycemia, without long-term current use of insulin (ICD-10 - E11.65) Comprehensive blood work with a hemoglobin A1c, fasting glucose, fasting lipids and microalbumin has been ordered. 03/08/2024 Cholelithiasis (ICD-10 - K80.20) She has had no symptoms of cholelithiasis and denies abdominal pain. 07/22/2024 Varicose veins of left lower extremity with pain (ICD-10 - I83.812) She has not had recent pain from her varicose veins. She will use heat and rest. If they become painful. Otherwise, she will elevate her legs periodically and use support hose. 08/02/2024 Viral syndrome (ICD-10 - B34.9) He will be treated conservatively. Blood work will be obtained. I ordered a chest x-ray. She'll follow-up by telephone every 48 hours. 12/12/2023 Varicose veins of left lower extremity with pain (ICD-10 - I83.812) She has not had recent pain from her varicose veins. She will use heat and rest. If they become painful. Otherwise, she will elevate her legs periodically and use support hose. 12/12/2023 Type 2 diabetes mellitus with hyperglycemia, without long-term current use of insulin (ICD-10 - E11.65) Comprehensive blood work with a hemoglobin A1c, fasting glucose, fasting lipids and microalbumin has been ordered. 12/12/2023 Former smoker (ICD-10 - Z87.891) She is highly motivated not to smoke and has a plan for prevention of relapse. Plan Of Treatment Pending Test Test Name Order Date Ear Lavage 09/13/2011 PROFILE, FASTING (COMPREHENSIVE METABOLI C) 01/28/2019 PROFILE, FASTING (COMPREHENSIVE METABOLI C) 03/21/2022 PROFILE, FASTING (COMPREHENSIVE METABOLI C) 08/15/2023 PROFILE, FASTING (COMPREHENSIVE METABOLI C) 10/14/2019 PROFILE, FASTING (COMPREHENSIVE METABOLI C) 06/29/2020 PROFILE, FASTING (COMPREHENSIVE METABOLI C) 12/13/2016 PROFILE, FASTING (COMPREHENSIVE METABOLI C) 04/19/2021 PROFILE, FASTING (COMPREHENSIVE METABOLI C) 10/31/2022 PROFILE, FASTING (COMPREHENSIVE METABOLI C) 07/18/2017 PROFILE, FASTING (COMPREHENSIVE METABOLI C) 10/30/2018 PROFILE, FASTING (COMPREHENSIVE METABOLI C) 10/18/2021 PROFILE, FASTING (COMPREHENSIVE METABOLI C) 08/12/2019 PROFILE, FASTING (COMPREHENSIVE METABOLI C) 06/12/2023 PROFILE, FASTING (COMPREHENSIVE METABOLI C) 02/10/2020 PROFILE, FASTING (COMPREHENSIVE METABOLI C) 09/12/2016 PROFILE, FASTING (COMPREHENSIVE METABOLI C) 07/25/2022 PROFILE, FASTING (COMPREHENSIVE METABOLI C) 04/04/2017 PROFILE, FASTING (COMPREHENSIVE METABOLI C) 07/31/2018 PROFILE, FASTING (COMPREHENSIVE METABOLI C) 07/19/2021 PROFILE, FASTING (COMPREHENSIVE METABOLI C) 10/27/2017 PROFILE, RANDOM (COMPREHENSIVE METABOLIC ) 09/28/2020 HEMOGLOBIN A1C (GLYCOHEMOGLOBIN) 022 LIPID PANEL 09/28/2020 LIPID PANEL 07/25/2022 LIPID PANEL 04/04/2017 LIPID PANEL 07/31/2018 LIPID PANEL 07/19/2021 LIPID PANEL 10/27/2017 LIPID PANEL 01/28/2019 LIPID PANEL 03/21/2022 LIPID PANEL 10/14/2019 LIPID PANEL 06/29/2020 LIPID PANEL 12/13/2016 LIPID PANEL 04/19/2021 LIPID PANEL 10/31/2022 LIPID PANEL 07/18/2017 LIPID PANEL 10/30/2018 LIPID PANEL 08/12/2019 LIPID PANEL 02/10/2020 LIPID PANEL 09/12/2016 FREE T4 (FT4) 10/27/2017 TSH (THYROID STIMULATING HORMONE) 2017 FERRITIN 03/21/2022 MICROALBUMIN, RANDOM 07/23/2021 CBC w DIFF 02/10/2020 CBC w DIFF 09/12/2016 CBC w DIFF 09/28/2020 CBC w DIFF 07/25/2022 CBC w DIFF 04/04/2017 CBC w DIFF 07/31/2018 CBC w DIFF 07/19/2021 CBC w DIFF 01/28/2019 CBC w DIFF 10/14/2019 CBC w DIFF 06/29/2020 CBC w DIFF 03/21/2022 CBC w DIFF 12/13/2016 CBC w DIFF 10/18/2021 CBC w DIFF 10/27/2017 CBC w DIFF 04/19/2021 CBC w DIFF 10/31/2022 CBC w DIFF 07/18/2017 CBC w DIFF 10/30/2018 CBC w DIFF 08/12/2019 URINALYSIS - CLEAN CATCH (UA) 02/20/2023 BONE DENSITY DEXA 07/22/2024 CBC WITH AUTO DIFF 08/15/2023 CBC WITH AUTO DIFF 06/12/2023 Lipid Panel 06/12/2023 Lipid Panel 08/15/2023 Lipid Panel 10/18/2021 MM tomosynthesis screening BI 07/22/2024 XR lumbar spine 2-3V 12/11/2024 Hemoglobin A1c 08/15/2023 Next Appt Details Provider Name:Michael Templeton, 12/23/2024 09:15:00 AM, [address] [facility] [place], [address], Provider Name:Michael Templeton, 11/17/2025 02:00:00 PM, [address] [facility] [place], [address], Insurance Providers Payer Name Payer Address Payer Phone Subscriber Number Group Number Insured Name Patient Relationship to Insured Coverage Start Date Coverage End Date [facility] [address] [facility] NATALYA VARGAS [id number] Mónica Paulino Self - patient is the insured MEDICARE NGS [address] [place] [phone] [id number] Mónica Paulino Self - patient is the insured Medical (General) History Medical History History ICD Code hypertension anxiety abnormal mammogram hyperlipidemia CAD, [place] 2003, 3 vessel CABG choleithiases hematuria last bilateral mammogram 10/05/12 @ dysfunctional uterine bleeding 1999, neg ative biopsy normal colonoscopy January 2010 Dr. Abdon josé vertigo Surgical History Surgery Date(Month/Year) Gallbladder laparoscopic cholecystectomy, Dr. Michael latham, [facility] 01/19/2015 normal colonoscopy, Dr. Silva, [facility], [place] January 2010 negative endometrial biopsy for dysfunct ional uterine bleeding 1999 three-vessel coronary artery bypass surg gisela 2003 Hospitalization History Reason Date(Month/Year) No history vaginal bleed 08/2018
== END 2024-12-11 15:13 | disposition home or self-care (01) ==
LOC: HO.XRAY 15:12
PROVIDERS: PCP Internal Medicine Medical Oncology; Visit Provider Internal Medicine Medical Oncology
DX: M54.42 Lumbago with sciatica, left side (principal)
CPT/HCPCS: 72100

== ENCOUNTER → 2024-12-11 15:25 | Outpatient (BNV) | payer MEDICARE, SELFPAY | PROVIDERS: PCP Internal Medicine Medical Oncology; Visit Provider Radiology Diagnostic Radiology | DX: M54.50 Low back pain, unspecified (principal) | CPT/HCPCS: 72100 ==

== ENCOUNTER 2025-03-31 08:27 | Outpatient (REF) | payer MEDICARE, SELFPAY ==
--- OUTSIDE RECORDS SUMMARY | 2024-11-07 06:30 | XMS_ITS ---
Author Organization Michael Templeton III, MD Address [address] [place] [address] Care Team Providers Care Disbursement Clerk Name Role Phone Dr. Michael Templeton III Primary Care Provider Allergies Allergen (clinical drug ingredient) Drug/Non Drug Allergy documented on EMR Reaction Allergy Type Onset Date Status amlodipine Amlodipine Besylate diarrhea,facial flush Drug Allergy Active REASON FOR VISIT Bilateral leg pain, Mild bilateral peripheral edema, Hypertension, Obesity, Coronary artery disease, Insomnia, Hyperlipidemia, Diabetes Medications Medication SIG (Take, Route, Frequency, Duration) Notes Start Date End Date Status Cyclobenzaprine HCl 10 MG 1 tablet Orall y three ties a day Active Rosuvastatin Calcium 40 MG Oral Active Adult Aspirin EC Low Strengt h 81 MG 1 tablet Orally Once a day Active Nitroglycerin 0.4 MG 1 tablet under the tongue and allow to dissolve as needed Sublingual every 0 hrs 10/20/2011 Active Nadolol 20 MG 1 tablet Orally Once a day Active Lisinopril 40 MG 1 tablet Orally Once a day Active Sulfamethoxazole-Trimethopri m 800-160 MG 1 tablet Orally twice a day 08/06/2024 Active dexAMETHasone 2 MG 1 tablet Orally twic e a day 10/18/2024 Active Social History Tobacco Use: Social History Observation Description Date Details (start date - stop date) Former Smoker NA - NA Sex Assigned At : Social History Observation Description Sex Assigned At Female Tobacco Use/Smoking Question Answer Notes Patient is a former smoker How long has it been since you last smoked? > 10 years Additional Findings: Tobacco Non-User Ex-cigaret te smoker Vital Signs Height 60 in 11/07/2024 Encounters Encounter Location Date Provider Diagnosis Michael Templeton III, MD [address] [place] [address] [facility] [address] 11/07/2024 Michael Templeton Type 2 diabetes mellitus with hyperglycemia, without long-term current use of insulin E11.65 ; Essential hypertension I10 ; Coronary artery disease I25.10 ; Obesity E66.9 ; Osteoporosis M81.0 ; Former smoker Z87.891 and Varicose veins of left lower extremity with pain I83.812 Assessments Encounter Date Diagnosis (ICD Code) Assessment Notes Treatment Notes Treatment Clinical Notes 11/07/2024 Type 2 diabetes mellitus with hyperglycemia, without long-term current use of insulin (ICD-10 - E11.65) No change was necessary in her medication. CBC and general chemistry profile, hemoglobin A1c and microalbumin are pending 11/07/2024 Essential hypertension (ICD-10 - I10) Her blood pressure has been stable. She is compliant with all of her medications. No change in her regimen as necessary today. I A repeat visit was arranged recommended aggressive weight loss and sodium restriction.The systolic blood pressure 141 is slightly elevated will be observed carefully. 11/07/2024 Coronary artery disease (ICD-10 - I25.10) She reports no exertional chest pain since her last visit. She has had no palpitations or dyspnea on exertion. No change in her medication was necessary. I recommended that she see her beading sawyer at appropriate intervals. 11/07/2024 Obesity (ICD-10 - E66.9) He has lost 6 pounds now weighing 177. Her body mass index is 34.56. We reviewed her weight loss strategy in depth today. 11/07/2024 Osteoporosis (ICD-10 - M81.0) She continues on calcium and vitamin D. A bone density test shows improvement towards normal bone density. 11/07/2024 Former smoker (ICD-10 - Z87.891) She is highly motivated not to smoke and has a plan for prevention of relapse. 11/07/2024 Varicose veins of left lower extremity with pain (ICD-10 - I83.812) She has not had recent pain from her varicose veins. She will use heat and rest. If they become painful. Otherwise, she will elevate her legs periodically and use support hose. Plan Of Treatment Medication Medication Name Sig Start Date Stop Date Notes Cyclobenzaprine HCl 10 MG 1 tablet Orall y three ties a day Rosuvastatin Calcium 40 MG Oral Adult Aspirin EC Low Strengt h 81 MG 1 tablet Orally Once a day Nitroglycerin 0.4 MG 1 tablet under the tongue and allow to dissolve as needed Sublingual every 0 hrs 10/20/2011 Nadolol 20 MG 1 tablet Orally Once a day Lisinopril 40 MG 1 tablet Orally Once a day Sulfamethoxazole-Trimethopri m 800-160 MG 1 tablet Orally twice a day 08/06/2024 dexAMETHasone 2 MG 1 tablet Orally twic e a day 10/18/2024 Next Appt Details Follow Up: As Scheduled, [place] son: Annual Exam Provider Name:Michael Templeton , 04/01/2025 03:00:00 PM, [address] [place] [address] [address], [place], [id number], Provider Name:Michael Templeton , 11/17/2025 02:00:00 PM, [address] [place] [address] [address], [place], [address], Progress Notes * Mónica PAULINODOB: (74 yo F)Acc No.[id number]:11/07/2024 Patient: Mónica WILDER Provider: Evelyn Templeton MD :1950 A ge:74 Y S ex:Female Date:11/07/2024 Address:[facility] [address] [id number] Subjective: * Chief Complaints: * B ilateral leg painMild bilateral peripheral edemaHypertensionObesityCoronary artery diseaseInsomniaHyperlipidemiaDiabetes * HPI: * : This This telehealth visit took place over 22 minutes with the patient at home and me in my office.? She gave consent for billing. This visit concerned bilateral peripheral edema which was seen on her last visit. She is being treated for this. It has improved somewhat but she continues to have bilateral leg pain. It is improved when she rests and elevates her legs and she was given thin Louis to do so. She denies any chest pain or dyspnea. She is trying to lose weight. She is sleeping better. She has had no vertigo. She says her diabetes is well controlled with fasting glucose levels below 150.On October 10, 2024 a bone density test showed normal bone density. On October 10, 2024 a mammogram showed only benign findings. Telehealth L ocation of provider rendering services: { ...} [address] [facility] [address] L ocation of patient: yair townsend listed in demographics for today's visit P atient identification confirmed using: LALA Montalvo ame elehealth method: T elephone only. Patient not visible to care provider. C onsent: P atient verbally consented to treatment, Patient verbally consented to billing insurance company, Patient informed of any privacy concerns related to method of visit T otal time spent with patient (mins) 1 5 * ROS: G eneral/Constitutional: pain B oth knees both feet. C hills d enies. F atigue a dmits. F ever d enies. E NT: Decreased hearing m ild. R espiratory: Cough d enies. C ardiovascular: Chest pain with exertion d enies. D yspnea on exertion?denies. S hortness of breath d enies. G astrointestinal: Constipation o ccasional. D ecreased appetite d enies. D iarrhea d enies. H eartburn d enies. N ausea d enies. R ectal bleeding d enies. V omiting d enies. H ematology: bruising d enies. p etechiae d enies. S wollen glands n one have been noted. G enitourinary: Frequent urination d enies. M usculoskeletal: Muscle aches d enies. P ainful joints K nees and ankles. S ciatica d enies. W eakness d enies. S kin: Itching d enies. R dolores d enies. S kin lesion(s)?denies. N eurologic: Difficulty speaking d enies. D izziness d enies.?Headache d enies. L ow back pain d enies. P sychiatric: Depressed mood d enies. * Medical History: * Surgical History: t hree-vessel coronary artery bypass surgery 2003negative endometrial biopsy for dysfunctional uterine bleeding 1999normal colonoscopy, Dr. Silva, [facility] January 2010laparoscopic cholecystectomy, Dr. Garcia, [facility] 01/19/2015No history * Hospitalization/Major Diagno stic Procedure: v aginal bleed 08/2018No history * Family History: F ather: 55 yrs, aneurysm brain, hypertension, diagnosed with HTN. M other: 73 yrs, aneurysm brain, hyperlipidemia, hypertension, diabetes mellitus, diagnosed with DM, HTN, Hyperlipidemia. 3 brother(s) . 2 son(s) , 1 daughter(s) - healthy. . Her brothers have gastric cancer and cardiovasclar disease. She is not aware of any family history of mental illness or substance use disorder or addiction. * Social History: T obacco Use: T obacco Use/Smoking P atient is a f ormer smoker H ow long has it been since you last smoked??> 10 years A dditional Findings: Tobacco Non-User E x-cigarette smoker S he was for many years and is . She has a son Beltran. She is retired and speaks fluent Haitian. She was born in [facility]. She is a former smoker. She has no latter-day objection to blood transfusion. * Medications: T akingSulfamethoxazole-Trimethoprim 800-160 MG Tablet 1 tablet Orally twice a day Lisinopril 40 MG Tablet 1 tablet Orally Once a day Nadolol 20 MG Tablet 1 tablet Orally Once a day Nitroglycerin 0.4 MG Tablet Sublingual 1 tablet under the tongue and allow to dissolve as needed Sublingual every 0 hrs Adult Aspirin EC Low Strength 81 MG Tablet Delayed Release 1 tablet Orally Once a day Rosuvastatin Calcium 40 MG Tablet Oral Cyclobenzaprine HCl 10 MG Tablet 1 tablet Orally three ties a day Taking Sulfamethoxazole-Trimethoprim 800-160 MG Tablet 1 tablet Orally twice a day Taking Lisinopril 40 MG Tablet 1 tablet Orally Once a day Taking Nadolol 20 MG Tablet 1 tablet Orally Once a day Taking Nitroglycerin 0.4 MG Tablet Sublingual 1 tablet under the tongue and allow to dissolve as needed Sublingual every 0 hrs Taking Adult Aspirin EC Low Strength 81 MG Tablet Delayed Release 1 tablet Orally Once a day Taking Rosuvastatin Calcium 40 MG Tablet Oral Taking Cyclobenzaprine HCl 10 MG Tablet 1 tablet Orally three ties a day DiscontinueddexAMETHasone 2 MG Tablet 1 tablet Orally twice a day dexAMETHasone 2 MG Tablet 1 tablet Orally twice a day Medication List reviewed and reconciled with the patientDiscontinued dexAMETHasone 2 MG Tablet 1 tablet Orally twice a day Discontinued dexAMETHasone 2 MG Tablet 1 tablet Orally twice a day Medication List reviewed and reconciled with the patient * Allergies: A mlodipine Besylate: diarrhea,facial flushno[Allergies Verified] Objective: * Vitals: H t: 60, Ht-cm: 152.4. Assessment: * Assessment: 1. T ype 2 diabetes mellitus with hyperglycemia, without long-term current use of insulin - E11.65 (Primary) N otes :No change was necessary in her medication. CBC and general chemistry profile, hemoglobin A1c and microalbumin are pending 2 . E ssential hypertension - I10 N otes :Her blood pressure has been stable. She is compliant with all of her medications. No change in her regimen as necessary today. I A repeat visit was arranged recommended aggressive weight loss and sodium restriction.The systolic blood pressure 141 is slightly elevated will be observed carefully. 3 . C oronary artery disease - I25.10 N otes :She reports no exertional chest pain since her last visit. She has had no palpitations or dyspnea on exertion. No change in her medication was necessary. I recommended that she see her beading sawyer at appropriate intervals. 4 . O besity - E66.9 N otes :He has lost 6 pounds now weighing 177. Her body mass index is 34.56. We reviewed her weight loss strategy in depth today. 5 . O steoporosis - M81.0 N otes :She continues on calcium and vitamin D. A bone density test shows improvement towards normal bone density. 6 . F ormer smoker - Z87.891 N otes :She is highly motivated not to smoke and has a plan for prevention of relapse. 7 . V aricose veins of left lower extremity with pain - I83.812 ?Notes :She has not had recent pain from her varicose veins. She will use heat and rest. If they become painful. Otherwise, she will elevate her legs periodically and use support hose. Plan: * Treatment: 2. O thers Continue dexAMETHasone Tablet, 2 MG, 1 tablet, Orally, twice a day; C ontinue Sulfamethoxazole-Trimethoprim Tablet, 800-160 MG, 1 tablet, Orally, twice a day. * Procedure Codes: 9 8012 SYNCH AUDIO-ONLY EST SF 10 * Preventive Medicine: Counseling: C are goal follow-up plan: Counseling for abnormal BMI given Y es Above Normal BMI Follow-up D ietary management education, guidance, and counseling S moking/Tobacco Use Patient counseled on the dangers of tobacco use and urged to quit. 0 11/07/2024 DM Care Plan: P atient Lifestyle Goals P atient wants to be able to manage diabetes without too much effort. T reatment Goals B lood Sugars less than < 115, HbA1C < 7.0. B arriers n o barriers, no barriers. S elf-Managment Goals W ork on weight loss, with a goal of losing 1 lb per week. * Follow Up: A s Scheduled (Reason: Annual Exam) * Images: * Sign off status: Completed true * Provider: Evelyn Templeton MD Date: 0 11/07/2024 Generated for Maribeth almanzar/Eliane/Jon on: 05/31/2024 08:38 AM EST History and Physical Notes * HPI (History of Present Illness) Category Sub-Category Detail Notes Telehealth Location of [facility] rendering services:: {...} [address] [facility] [address] Location of patient:: address listed in demographics for today's visit Patient identification confirmed using:: Name, Telehealth method:: Telephone only. Wen ent not visible to care provider. Consent:: Patient verbally c onsented to treatment, Patient verbally consented to billing insurance company, Patient informed of any privacy concerns related to method of visit Total time spent with patient (mins): 15
--- OUTSIDE RECORDS SUMMARY | 2024-11-11 09:00 | XMS_ITS ---
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 Michael Templeton III Primary Care Provider [phone] Allergies Allergen (clinical drug ingredient) Drug/Non Drug Allergy documented on EMR Reaction Allergy Type Onset Date Status amlodipine Amlodipine Besylate diarrhea,facial flush Drug Allergy Active Grapes grapes (uncoded) Unknown Allergy Act lucina REASON FOR VISIT Annual Exam Medications Medication SIG (Take, Route, Frequency, Duration) Notes Start Date End Date Status [facility] Isopropyl Alcohol Wipes 70 % use to check blood sugars Externally On Wednesdays and Fridays for 90 days DX: Diabetes E11.9 11/11/2024 11/06/2025 Active Lancets 30G - use to check fasting blood sugars on Monday and Fridays for 90 days DX: Diabetes E11.9 11/11/2024 Active FreeStyle Lite Test - use to check fasting blood sugars on Mondays , Monday and Fridays In Vitro for 90 days DX: Diabetes E11.9 11/11/2024 Active FreeStyle Lite w/Device use to check fasting blood sugars Monday and Fridays for 90 days DX: Diabetes E11.9 11/11/2024 Active Gauze Pads 3 X3 use to check blood sugars Monday and Fridays for 90 days DX: Diabetes E11.9 11/11/2024 Active metFORMIN HCl 500 MG 1 tablet with a meal Orally Once a day for 30 days 11/11/2024 Active dexAMETHasone 2 MG 1 tablet Orally twice a day 10/21/2024 Active Cyclobenzaprine HCl 10 MG 1 tablet Orally three ties a day Active Rosuvastatin Calcium 40 MG Oral Active Adult Aspirin EC Low Strength 81 MG 1 tablet Orally Once a day Active Nitroglycerin 0.4 MG 1 tablet under the tongue and allow to dissolve as needed Sublingual every 0 hrs 10/20/2011 Active Nadolol 20 MG 1 tablet Orally Once a day Active Lisinopril 40 MG 1 tablet Orally Once a day Active Sulfamethoxazole-Trimet hoprim 800-160 MG 1 tablet Orally twice a day 08/06/2024 Active Social History Tobacco Use: Social History Observation Description Date Details (start date - stop date) Former Smoker NA - NA Sex Assigned At : Social History Observation Description Sex Assigned At Female Tobacco Control (Standard) Question Answer Notes Tobacco use: Former smoker How long has it been since you last smoked? Grea ter than 10 years Additional Findings: Tobacco non-user Ex-cigaret te smoker AUDIT-C (Standard) Question Answer Notes Did you have a drink containing alcohol in the p ast year? No Points 0 Interpretation Negative Vital Signs Temperature 97.9 degrees Fahrenheit 11/12/19 25 Blood pressure systolic 136 mm Hg 11/12/19 25 Blood pressure diastolic 69 mm Hg 025 Heart Rate 55 /min 11/11/2024 Height 60 in 11/11/2024 Weight 173 lbs 11/11/2024 BMI 33.78 kg/m2 11/11/2024 Encounters Encounter Location Date Provider Diagnosis Michael Templeton III, MD [address] [place] [address] [address] [place], [place]ALYA [address] 11/11/2024 Michael Templeton Type 2 diabetes adelita itus with hyperglycemia, without long-term current use of insulin E11.65 ; Coronary artery disease I25.10 ; Obesity E66.9 ; Essential hypertension I10 ; Hyperlipidemia E78.5 and Former smoker Z87.891 Assessments Encounter Date Diagnosis (ICD Code) Assessment Notes Treat ment Notes Treatment Clinical Notes 11/11/2024 Type 2 diabetes mellitus with hyperglycemia, without long-term current use of insulin (ICD-10 - E11.65) The hemoglobin A1c is 6.9 on the fasting glucose is 142. Therapy with metformin has been initiated. 11/11/2024 Coronary artery disease (ICD-10 - I25.10) She reports no exertional chest pain since her last visit. She has had no palpitations or dyspnea on exertion. No change in her medication was necessary. I recommended that she see her licensing representative at appropriate intervals. 11/11/2024 Obesity (ICD-10 - E66.9) He has lost 4 pounds But remains obese. We have reviewed her weight loss strategy today. 11/11/2024 Essential hypertension (ICD-10 - I10) Her blood pressure has been stable. She is compliant with all of her medications. No change in her regimen as necessary today. I A repeat visit was arranged recommended aggressive weight loss and sodium restriction.The systolic blood pressure 141 is slightly elevated will be observed carefully. 11/11/2024 Hyperlipidemia (ICD-10 - E78.5) Comprehensive blood work including a fasting lipid profile has been ordered. Her lipids have been maintained in the normal range. 11/11/2024 Former smoker (ICD-1 0 - Z87.891) She is highly motivated not to smoke and has a plan for prevention of relapse. Plan Of Treatment Medication Medication Name Sig Start Date Stop Date Notes [facility] Isopropyl Alcohol Wipes 70 % use to check blood sugars Externally On Wednesdays and Fridays for 90 days 11/11/2024 11/06/2025 DX: Diabetes E11.9 Lancets 30G - use to check fasting blood sugars on Monday and Fridays for 90 days 11/11/2024 DX: Diabetes E11.9 FreeStyle Lite Test - use to check fasti ng blood sugars on Mondays , Monday and Fridays In Vitro for 90 days 11/11/2024 DX: Diabetes E11.9 FreeStyle Lite w/Device use to check fas ting blood sugars Monday and Fridays for 90 days 11/11/2024 DX: Diabetes E11.9 Gauze Pads 3 X3 use to check blood sugars Monday and Fridays for 90 days 11/11/2024 DX: Diabetes E11.9 metFORMIN HCl 500 MG 1 tablet with a rusty l Orally Once a day for 30 days 11/11/2024 dexAMETHasone 2 MG 1 tablet Orally twice a day 10/21/2024 Cyclobenzaprine HCl 10 MG 1 tablet Orall y three ties a day Rosuvastatin Calcium 40 MG Oral Adult Aspirin EC Low Strength 81 MG 1 tablet Orally Once a day Nitroglycerin 0.4 MG 1 tablet under the tongue and allow to dissolve as needed Sublingual every 0 hrs 10/20/2011 Nadolol 20 MG 1 tablet Orally Once a day Lisinopril 40 MG 1 tablet Orally Once a day Sulfamethoxazole-Trimetho prim 800-160 MG 1 tablet Orally twice a day 08/06/2024 Next Appt Details Follow Up: 6 Weeks, Reason: ov needs fasting glucose that day Provider Name:Michael Templeton , 04/01/2025 03:00:00 PM, [address] [place] [address] [address], [place], [address], Provider Name:Michael Templeton , 11/17/2025 02:00:00 PM, [address] [place] [address] [address], [place], [address], Progress Notes * KATHY MónicaDOB: (74 yo F)Acc No.[id number]:11/11/2024 Progress Notes Patient: Mónica WILDER Provider: Evelyn Templeton MD :1950 A ge:74 Y S ex:Female Date:11/11/2024 Address:[facility] [address] , [place], [place]-[id number] Subjective: * Chief Complaints: * A nnual Exam * HPI: D epression Screening: She comes to the office today at the age of 74 for her annual physical examination. She is followed here for hypertension, coronary artery disease, obesity, insomnia, arthritis of the knees, diabetes and varicose veins. Since her last visit she has developed some mild intermittent low back pain relieved by rest. She has had no angina. He denies any dyspnea. She is trying to lose weiight and consume a healthy diet. She has been compliant with all of her medications. She has been slowly evolving from prediabetes into overt diabetes mellitus type 2. We discussed this diagnosis today. She seems surprised.? Her A1c was slightly over the normal limit. She was placed on metformin. PHQ-9 L ittle interest or pleasure in doing things?Not at all F eeling down, depressed, or hopeless N ot at all T rouble falling or staying asleep, or sleeping too much N ot at all F eeling tired or having little energy N ot at all P oor appetite or overeating N ot at all F eeling bad about yourself or that you are a failure, or have let yourself or your family down N ot at all T rouble concentrating on things, such as reading the newspaper or watching television N ot at all M oving or speaking so slowly that other people could have noticed; or the opposite, being so fidgety or restless that you have been moving around a lot more than usual N ot at all T houghts that you would be better off or of hurting yourself in some way N ot at all T otal Score 0 C OVID-19 Screening: pain back to left leg a little better, right foot feels cold but warm with pulses. Questions H ave you had any new onset fever, chills, cough, congestion, sore throat, shortness of breath, muscle aches? N o F all Risk Screening: Fall History H ave you had any falls with injury in the past year? N o H ave you had two or more falls in the past year? N o F all Risk Assessment: N o falls in the past year S FERNANDO Questions: SDOH Questions I n the past year have you been worried about losing your housing? N o I n the past year have you or any family members you live with been unable to get any of the following when it was really needed? Check all that apply: N one * ROS: G eneral/Constitutional: pain K nees and low back. C hills d enies. F atigue a [...] Muscle aches d enies. P ainful joints d enies. S ciatica d enies. W eakness d enies. S kin: Itching d enies. R dolores d enies. S kin lesion(s)?denies. N eurologic: Difficulty speaking d enies. D izziness d enies.?Headache d enies. L ow back pain t hat is new. P sychiatric: Depressed mood d enies. * Medical History: * Surgical History: t hree-vessel coronary artery bypass surgery 2003negative endometrial biopsy for dysfunctional uterine bleeding 1999normal colonoscopy, Dr. Silva, [facility] January 2010laparoscopic cholecystectomy, Dr. Garcia, [facility] 01/19/2015Gallbladder * Hospitalization/Major Diagno stic Procedure: v aginal bleed 08/2018No history * Family History: F ather: 55 yrs, aneurysm brain, hypertension, diagnosed with HTN. M other: 73 yrs, aneurysm brain, hyperlipidemia, hypertension, diabetes mellitus, diagnosed with DM, HTN, Hyperlipidemia. 3 brother(s) . 2 son(s) , 1 daughter(s) - healthy. . Her brothers have gastric cancer and cardiovasclar disease (). She is not aware of any family history of mental illness or substance use disorder or addiction. * Social History: T obacco Use: T obacco Control (Standard) T obacco use: F ormer smoker H ow long has it been since you last smoked??Greater than 10 years A dditional Findings: Tobacco non-user E x-cigarette smoker D rugs/Alcohol: D rugs H ave you used drugs other than those for medical reasons in the past 12 months? N o D rug/Alcohol: A BRIGIDO-C (Standard) D id you have a drink containing alcohol in the past year? N o P oints 0 I nterpretation N egative S he was for many years and is . She has a son Beltran. She is retired and speaks fluent Faroese. She was born in [facility] She is a former smoker. She has no advent objection to blood transfusion. * Medications: T akingdexAMETHasone 2 MG Tablet 1 tablet Orally twice a day Sulfamethoxazole-Trimethoprim 800-160 MG Tablet 1 tablet Orally [...] tablet Orally three ties a day Taking dexAMETHasone 2 MG Tablet 1 tablet Orally twice a day Taking Sulfamethoxazole-Trimethoprim 800-160 MG Tablet [...] patient * Allergies: A mlodipine Besylate: diarrhea,facial flushgrapesno[Allergies Verified] Objective: * Vitals: H t: 60, Wt:173, BMI:33.78, BP:136/69, HR:55, Temp:97.9, Ht-cm: 152.4, Wt-k.47. * P ast Orders: Lab:[facility] Fast * Collection Date 11/11/2024 03/14/2022 10/11/2021 Collection Time 08:50 AM 10:40 AM 09:32 AM Order Date 11/11/2024 03/14/2022 10/11/2021 Sodium 142 (Ref Range: 135-145 mmol/L) 143 (Ref Range: 135-145 mmol/L) 140 (Ref Range: 135-145 mmol/L) Bilirubin Total 0.3 (Ref Range: 0.0-1.0 mg/dL) 0.4 (Ref Range: 0.0-1.0 mg/dL) 0.5 (Ref Range: 0.0-1.0 mg/dL) Aspartate Amino Transferase 31 (Ref Range: 5-31 U/L) 24 (Ref Range: 5-31 U/L) 25 (Ref Range: 5-31 U/L) Alanine Aminotransferase 22 (Ref Range: 0-31 U/L) 20 (Ref Range: 0-31 U/L) 17 (Ref Range: 0-31 U/L) Total Protein 6.8 (Ref Range: 6.5-8.0 g/dL) 7.1 (Ref Range: 6.5-8.0 g/dL) 6.9 (Ref Range: 6.5-8.0 g/dL) Albumin Level 4.0 (Ref Range: 3.5-5.0 g/dL) 4.2 (Ref Range: 3.5-5.0 g/dL) 4.0 (Ref Range: 3.5-5.0 g/dL) Alkaline Phosphatase 40 (Ref Range: 39-117 U/L) 44 (Ref Range: 39-117 U/L) 41 (Ref Range: 39-117 U/L) Potassium 4.3 (Ref Range: 3.3-5.1 mmol/L) 4.8 (Ref Range: 3.3-5.1 mmol/L) 4.6 (Ref Range: 3.3-5.1 mmol/L) Chloride 106 (Ref Range: 96-108 mmol/L) 107 (Ref Range: 96-108 mmol/L) 106 (Ref Range: 96-108 mmol/L) Carbon Dioxide 28 (Ref Range: 22-29 mmol/L) 26 (Ref Range: 22-29 mmol/L) 26 (Ref Range: 22-29 mmol/L) Anion Gap 12 (Ref Range: 12-20) 15 (Ref Range: 12-20) 13 (Ref Range: 12-20) Blood Urea Nitrogen 21 H (Ref Range: 9-16 mg/dL) 21 H (Ref Range: 9-16 mg/dL) 21 H (Ref Range: 9-16 mg/dL) Creatinine 1.15 (Ref Range: 0.5-1.4 mg/dL) 1.06 (Ref Range: 0.5-1.4 mg/dL) 1.03 (Ref Range: 0.5-1.4 mg/dL) Estimated Glomerular Filt Rate 46 51 53 Glucose Fasting 142 H (Ref Range: 60-99 mg/dL) 122 H (Ref Range: 60-99 mg/dL) 125 H (Ref Range: 60-99 mg/dL) Calcium 9.2 (Ref Range: 8.4-10.2 mg/dL) 9.5 (Ref Range: 8.4-10.2 mg/dL) 9.0 (Ref Range: 8.4-10.2 mg/dL) * Lab:Lipid Panel * Collection Date 11/11/2024 08/02/2024 03/14/2022 Collection Time 08:50 AM 11:52 AM 10:40 AM Order Date 11/11/2024 08/02/2024 03/14/2022 Triglycerides 195 H (Ref Range: <150 mg/dL) 139 (Ref Range: <150 mg/dL) 143 (Ref Range: mg/dL) Cholesterol 139 (Ref Range: <200 mg/dL) 121 (Ref Range: <200 mg/dL) 133 (Ref Range: mg/dL) LDL Cholesterol Calculated 64 (Ref Range: <100 mg/dL) 62 (Ref Range: <100 mg/dL) 63 (Ref Range: mg/dl) HDL Cholesterol 36 L (Ref Range: >40 mg/dL) 32 L (Ref Range: >40 mg/dL) 42 (Ref Range: mg/dL) * Lab:Hemoglobin A1c * Collection Date 11/11/2024 10/11/2021 Collection Time 08:50 AM 09:32 AM Order Date 11/11/2024 10/11/2021 Hemoglobin A1c % 6.9 H (Ref Range: <6.0 %) 6.3 (Ref Range: %) Estimated Average Glucose 151 (Ref Range: mg/dL) 134 (Ref Range: mg/dL) * Lab:Complete Blood Count Aut o Diff * Collection Date 11/11/2024 08/02/2024 03/14/2022 Collection Time 08:50 AM 11:52 AM 10:40 AM Order Date 11/11/2024 08/02/2024 03/14/2022 White Blood Count 4.8 (Ref Range: 4.8-10.8 X10*3/uL) 6.7 (Ref Range: 4.8-10.8 X10*3/uL) 5.4 (Ref Range: 4.8-10.8 X10*3/uL) Red Blood Count 3.83 L (Ref Range: 4.20-5.50 X10*6/uL) 3.89 L (Ref Range: 4.20-5.50 X10*6/uL) 3.78 L (Ref Range: 4.20-5.50 X10*6/uL) Hemoglobin 10.5 L (Ref Range: 12.0-16.0 g/dl) 10.8 L (Ref Range: 12.0-16.0 g/dl) 10.6 L (Ref Range: 12.0-16.0 g/dl) Hematocrit 34.0 L (Ref Range: 37.0-47.0 %) 33.5 L (Ref Range: 37.0-47.0 %) 33.9 L (Ref Range: 37.0-47.0 %) Mean Corpuscular Volume 88.8 (Ref Range: 80.0-98.0 fL) 86.1 (Ref Range: 80.0-98.0 fL) 89.7 (Ref Range: 80.0-98.0 fL) Mean Corpuscular Hemoglobin 27.4 (Ref Range: 27.0-33.0 pg) 27.8 (Ref Range: 27.0-33.0 pg) 28.0 (Ref Range: 27.0-33.0 pg) Mean Corpuscular HGB Conc 30.9 L (Ref Range: 31.0-35.0 g/dl) 32.2 (Ref Range: 31.0-35.0 g/dl) 31.3 (Ref Range: 31.0-35.0 g/dl) Red Cell Distribution Width 14.5 (Ref Range: 11.0-16.0 %) 13.5 (Ref Range: 11.0-16.0 %) 13.4 (Ref Range: 11.0-16.0 %) Platelet Count 196 (Ref Range: 160-400 X10*3/uL) 264 (Ref Range: 160-400 X10*3/uL) 181 (Ref Range: 160-400 X10*3/uL) Mean Platelet Volume 10.7 (Ref Range: 9.4-12.3 fL) 9.8 (Ref Range: 9.4-12.3 fL) 11.2 (Ref Range: 9.4-12.3 fL) Neutrophils Percent Auto 57.7 (Ref Range: 45-73 %) 61.8 (Ref Range: 45-73 %) 56.9 (Ref Range: 45-73 %) Imm Gran Pct Auto 0.4 (Ref Range: 0.0-0.4 %) 0.5 H (Ref Range: 0.0-0.4 %) 0.4 (Ref Range: 0.0-0.4 %) Lymphocytes Percent Auto 26.5 (Ref Range: 20-40 %) 22.4 (Ref Range: 20-40 %) 26.6 (Ref Range: 20-40 %) Monocytes Percent Auto 12.1 H (Ref Range: 2-11 %) 11.7 H (Ref Range: 2-11 %) 11.3 H (Ref Range: 2-11 %) Eosinophils Percent Auto 2.9 (Ref Range: 0-4 %) 3.0 (Ref Range: 0-4 %) 4.6 H (Ref Range: 0-4 %) Basophils Percent Auto 0.4 (Ref Range: 0-2 %) 0.6 (Ref Range: 0-2 %) 0.2 (Ref Range: 0-2 %) NRBC Pct Auto 0.0 (Ref Range: 0.0-0.2 /100WBC) 0.0 (Ref Range: 0.0-0.2 /100WBC) 0.0 (Ref Range: 0.0-0.2 /100WBC) Neutrophils Absolute Auto 2.8 (Ref Range: 2.0-8.3 x10*3/uL) 4.1 (Ref Range: 2.0-8.3 x10*3/uL) 3.1 (Ref Range: 2.0-8.3 x10*3/uL) Imm Gran Abs Auto 0.02 (Ref Range: 0.00-0.03 X10*3/uL) 0.03 (Ref Range: 0.00-0.03 X10*3/uL) 0.02 (Ref Range: 0.00-0.03 X10*3/uL) Lymphocytes Absolute Auto 1.3 (Ref Range: 1.2-4.9 X10*3/uL) 1.5 (Ref Range: 1.2-4.9 X10*3/uL) 1.4 (Ref Range: 1.2-4.9 X10*3/uL) Monocytes Absolute Auto 0.6 (Ref Range: 0.1-1.2 X10*3/uL) 0.8 (Ref Range: 0.1-1.2 X10*3/uL) 0.6 (Ref Range: 0.1-1.2 X10*3/uL) Eosinophils Absolute Auto 0.1 (Ref Range: 0.0-0.4 X10*3/uL) 0.2 (Ref Range: 0.0-0.4 X10*3/uL) 0.3 (Ref Range: 0.0-0.4 X10*3/uL) Basophils Absolute Auto 0.0 (Ref Range: 0.0-0.2 X10*3/uL) 0.0 (Ref Range: 0.0-0.2 X10*3/uL) 0.0 (Ref Range: 0.0-0.2 X10*3/uL) NRBC Abs Auto 0.000 (Ref Range: 0.0-0.012 X10*3/uL) 0.000 (Ref Range: 0.0-0.012 X10*3/uL) 0.000 (Ref Range: 0.0-0.012 X10*3/uL) ???Imaging:XR DEXA axial skeleton (Order Date - 10/10/2024) (Performed Date - 10/10/2024) * Imaging:MM tomosynthesis scr eening BI * Performed Date 10/10/2024 09/05/2023 06/20/2022 01:40 PM 01:45 PM 12:45 PM Order Date 10/10/2024 09/05/2023 06/20/2022 * Imaging:MAMMOGRAM DIGITAL BI LATERAL SCREEN * Performed Date 11/07/2023 03/12/2019 01/23/2018 08:53 AM 03:22 PM Order Date 09/05/2023 03/12/2019 01/01/2018 10/10/2024 Result: undefined undefined * Examination: G eneral Examination: GENERAL APPEARANCE: ana cano, well nourished, well developed, in no acute distress, calm and relaxed, obese, woman. HEAD: a traumatic, normocephalic. EYES: e deepak, perrla, anicteric, conjugate. EARS: n ormal. NOSE: s eptum intact. ORAL CAVITY: n ormal, unremarkable. NECK/THYROID: n o jugular venous distention, no carotid bruit, thyroid normal. LYMPH NODES: n o enlarged lymph nodes,spleen normal. SKIN: n o suspicious lesions, anicteric. HEART: n o clicks, gallops, murmurs, or rubs, regular rhythm, S1, S2 normal, no s3, or vascular bruits. LUNGS: c lear to auscultation . BREASTS: no masses palpable bilaterally. ABDOMEN: b owel sounds normal, no ascites, no organomegaly, no mass, centripital obesity. RECTAL EXAM: n ot examined. MUSCULOSKELETAL: e xtremities unremarkable, no clubbing, cyanosis or edema. PERIPHERAL PULSES: n ormal. NEUROLOGIC: a lert and oriented, cranial nerves 2-12 grossly intact, deep tendon reflexes 2+ symmetrical, motor strength normal upper and lower extremities, sensory exam intact. PSYCH: a lert, oriented. Assessment: * Assessment: 1. C oronary artery disease - I25.10 (Primary) N otes :She reports no exertional chest pain since her last visit. She has had no palpitations or dyspnea on exertion. No change in her medication was necessary. I recommended that she see her licensing representative at appropriate intervals. 2 . T ype 2 diabetes mellitus with hyperglycemia, without long-term current use of insulin - E11.65 N otes :The hemoglobin A1c is 6.9 on the fasting glucose is 142. Therapy with metformin has been initiated. 3 . O besity - E66.9 N otes :He has lost 4 pounds But remains obese. We have reviewed her weight loss strategy today. 4 . E ssential hypertension - I10 N otes :Her blood pressure has been stable. She is compliant with all of her medications. No change in her regimen as necessary today. I A repeat visit was arranged recommended aggressive weight loss and sodium restriction.The systolic blood pressure 141 is slightly elevated will be observed carefully. 5 . H yperlipidemia - E78.5 N otes :Comprehensive blood work including a fasting lipid profile has been ordered. Her lipids have been maintained in the normal range. 6 . F ormer smoker - Z87.891 N otes :She is highly motivated not to smoke and has a plan for prevention of relapse. Plan: * Treatment: 2. O thers Continue Sulfamethoxazole-Trimethoprim Tablet, 800-160 MG, 1 tablet, Orally, twice a day; C ontinue dexAMETHasone Tablet, 2 MG, 1 tablet, Orally, twice a day. * Procedure Codes: * Preventive Medicine: Counseling: C are goal follow-up plan: Counseling for abnormal BMI given Y es Above Normal BMI Follow-up D ietary management education, guidance, and counseling, Dietary needs education, Exercise promotion: strength training, Exercise promotion: stretching, Feeding regime, Giving encouragement to exercise, Lifestyle education regarding diet, Nutrition / feeding management, Nutrition therapy, Prescribed activity/exercise education, Prescribed diet education, Prescribed dietary intake, Special diet education, Weight monitoring , Intervention, Order not done: Medical or Other reason not done S moking/Tobacco Use Patient counseled on the dangers of tobacco use and urged to quit. 0 11/11/2024 DM Care Plan: P atient Lifestyle Goals P atient wants to be able to manage diabetes without too much effort. T reatment Goals B lood Sugars less than < 115, HbA1C < 7.0. B arriers n o barriers. S elf-Managment Goals W ork on weight loss, with a goal of losing 1 lb per week. * Follow Up: 6 Weeks (Reason: ov needs fasting glucose that day) * Images: * Sign off status: Completed true * Provider: Evelyn Templeton MD Date: 0 11/11/2024 Generated for Maribeth almanzar/Eliane/Keriitting on: 05/31/2024 08:39 AM EST History and Physical Notes * HPI (History of Present Illness) Category Sub-Category Detail Notes Depression Screening PHQ-9 Little inte rest or pleasure in doing things: Not at all Feeling down, depressed, or hopeless: No t at all Trouble falling or staying asleep, or sl eeping too much: Not at all Feeling tired or having little energy: N ot at all Poor appetite or overeating: Not at all Feeling bad about yourself o r that you are a failure, or have let yourself or your family down: Not at all Trouble concentrating on thi ngs, such as reading the newspaper or watching television: Not at all Moving or speaking so slowly that other people could have noticed; or the opposite, being so fidgety or restless that you have been moving around a lot more than usual: Not at all Thoughts that you would be b chris off or of hurting yourself in some way: Not at all Total Score: 0 Fall Risk Screening Fall History Have you had any falls with injury in the past year?: No Have you had two or more falls in the year?: No Fall Risk Assessment:: No falls in the year COVID-19 Screening Questions Have you had any new onset fever, chills, cough, congestion, sore throat, shortness of breath, muscle aches?: No SDOH Questions SDOH Questions In the past year have you been worried about losing your housing?: No In the past year have you or any family members you live with been unable to get any of the following when it was really needed? Check all that apply:: None Examination Category Sub-Category Detail Notes General Examination GENERAL APPEARANCE: pleasant , well nourished, well developed, in no acute distress, calm and relaxed, obese, woman HEAD: atraumatic, normocep halic EYES: eomi, perrla, anicte christi, conjugate EARS: normal NOSE: septum intact NECK/THYROID: no jugular venous di stention, no carotid bruit, thyroid normal HEART: no clicks, gallops, murmurs, or rubs, regular rhythm, S1, S2 normal, no s3, or vascular bruits LUNGS: clear to auscultatio n ABDOMEN: bowel sounds normal, no ascites, no organomegaly, no mass, centripital obesity NEUROLOGIC: alert and oriented, cranial nerves 2-12 grossly intact, deep tendon reflexes 2+ symmetrical, motor strength normal upper and lower extremities, sensory exam intact SKIN: no suspicious lesion s, anicteric PERIPHERAL PULSES: normal BREASTS: no masses palpable b ilaterally MUSCULOSKELETAL: extremities unremark able, no clubbing, cyanosis or edema LYMPH NODES: no enlarged lymph no magdalene,spleen normal RECTAL EXAM: not examined PSYCH: alert, oriented ORAL CAVITY: normal, unremarkable
--- OUTSIDE RECORDS SUMMARY | 2024-12-03 04:32 | XMS_ITS ---
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 Michael Templeton III Primary Care Provider REASON FOR VISIT Rx Request Medications Medication SIG (Take, Route, Frequency, Duration) Notes Start Date End Date Status Ciprofloxacin HCl 250 MG 1 tablet Orally every 12 hrs for 7 days 12/03/2024 12/10/2024 Active Social History Sex Assigned At : Social History Observation Description Sex Assigned At Female Encounters Encounter Location Date Provider Diagnosis Michael Templeton III, MD [address] [place] [address] [place] [address] 12/03/2024 Michael Templeton Plan Of Treatment Medication Medication Name Sig Start Date Stop Date Notes Sulfamethoxazole-Trimethopri m 800-160 MG 1 tablet Orally twice a day 08/06/2024 Ciprofloxacin HCl 250 MG 1 tablet Orally every 12 hrs for 7 days 12/03/2024 12/10/2024 Next Appt Details Provider Name:Michael Templeton , 04/01/2025 03:00:00 PM, [address] [place] [address] [place], [address], Provider Name:Michael Templeton , 11/17/2025 02:00:00 PM, [address] [place] [address] , [place] [address], [place], [address], Progress Notes * Mónica PAULINODOB: (74 yo F)Acc No.[id number]:12/03/2024 Patient: Mónica WILDER :1950 A ge:74 Y S ex:Female Address:[address] [place] [address] , [place] [address] * Refills Stop Sulfamethoxazole-Trimethoprim Tablet, 800-160 MG, Orally, 1 tablet, twice a day Start Ciprofloxacin HCl Tablet, 250 MG, Orally, 14 Tablet, 1 tablet, every 12 hrs, 7 days, Refills=0 Subjective: * Chief Complaints: * R x Request * Medical History: * Surgical History: * Hospitalization/Major Diagno stic Procedure: * Medications: Objective: * Vitals: * Physical Examination: Assessment: Plan: * Treatment: * Procedure Codes: * true * Date: Generated for Maribeth almanzar/Eliane/eTpanfilosmitting on: 05/31/2024 08:40 AM EST
--- OUTSIDE RECORDS SUMMARY | 2024-12-09 04:22 | XMS_ITS ---
Author Organization Michael Templeton III, MD Address [address] [address] Care Team Providers Care Employee Relations Director Name Role Phone Dr. Michael Templeton III Primary Care Provider [phone] REASON FOR VISIT new concern Social History Sex Assigned At : Social History Observation Description Sex Assigned At Female Encounters Encounter Location Date Provider Diagnosis Michael Templeton III, MD [address] [place] [address] [place] [address] 12/09/2024 Michael Templeton Plan Of Treatment Next Appt Details Provider Name:Michael Templeton , 04/01/2025 03:00:00 PM, [address] [place] [address] [place], [address], Provider Name:Michael Templeton , 11/17/2025 02:00:00 PM, [address] [place] [address] [place], [address], Progress Notes * LORA ImmacolataDOB: (74 yo F)Acc No.[id number]:12/09/2024 Patient: Poly Mónica LIRA :1950 A ge:74 Y S ex:Female Address:[facility] [address], [place] [address] * true * Date: Generated for Maribeth almanzar/Eliane/Jon on: 05/31/2024 08:40 AM EST
--- OUTSIDE RECORDS SUMMARY | 2024-12-11 09:30 | XMS_ITS ---
Author Organization Michael Templeton III, MD Address [address] [place] [address] Care Team Providers Care Outside Sales Account Representative Name Role Phone Dr. Michael Templeton III Primary Care Provider Allergies Allergen (clinical drug ingredient) Drug/Non Drug Allergy documented on EMR Reaction Allergy Type Onset Date Status amlodipine Amlodipine Besylate diarrhea,facial flush Drug Allergy Active Grapes grapes (uncoded) Unknown Allergy Act lucina Results Component Value Reference Range Notes XR lumbar spine 2-3V Reviewed date:12/29/2024 05:10:05 AM Interpretation: Performing Lab: Notes/Report: [address] [address] XRay Report Signed Patient: Mónica Paulino MR#: [id number] : 1950 Acct:[id number] Age/Sex: 74 / F ADM Date: 12/11/24 Loc: HO.XRAY Attending Dr: Michael Templeton MD Ordering Physician: Michael Templeton MD Date of Service: 12/11/24 Procedure(s): XR lumbar spine 2-3V Accession Number(s): [id number] cc: Michael Templeton MD EXAMINATION: XR LUMBOSACRAL SPINE CLINICAL INFORMATION: ACUTE LEFT-SIDED LOW BACK PAIN COMPARISON: None available. TECHNIQUE: Three views of the lumbosacral spine. FINDINGS: There is normal lumbar lordosis. There is mild thoracolumbar scoliosis. The vertebral heights and alignment are normal. There is loss of L5-S1 and L2-3 disc height. There is mild posterior spondylosis L4-5 disc level. Mild bilateral L5-S1 facet joint hypertrophy and arthropathy is noted. Rest of the disc heights are normal. There is no lytic or sclerotic process. XR/XR lumbar spine 2-3V IMPRESSION: Mild scoliosis with degenerative disc changes L2-3 and L5-S1 disc levels. Mild posterior spondylosis L4-5 disc level. No visible acute fracture or lytic process. 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 TECHNIQUE: Three views of the l umbosacral spine. FINDINGS: There is normal lumb ar lordosis. There is mild thoracolumbar scoliosis. The vertebral height s and alignment are normal. There is loss of L5-S1 and L2-3 disc height . There is mild posterior spondylosis L4-5 disc level. Mild bilatera l L5-S1 facet joint hypertrophy and arthropathy is noted. Rest of the d isc heights are normal. There is no lytic or sclerotic process. X R/XR lumbar spine 2-3V IMPRESSION: Mild scoliosis with degenerative disc changes L2-3 and L5-S1 disc levels. Mild posterior spond ylosis L4-5 disc level. No visible acute fracture or lytic process. Electronically brodie d by: Dwight Sandy MD 12/11/2024 04:07 PM EDT RP Dictated By: Dwight Sandy MD Signed By: <Electron ically signed by Dwight Sandy MD in OV> 12/11/24 1607 DD/ 1525 TD/TT: 12/11/24 1531 Coin Machine Assembler: RADHA REASON FOR VISIT Right low back pain with sciatica, Hypertension, Obesity, Hyperlipidemia, Diabetes Medications Medication SIG (Take, Route, Frequency, Duration) Notes Start Date End Date Status dexAMETHasone 2 MG 1 tablet Orally twice a day for 10 days 12/11/2024 Active Cyclobenzaprine HCl 10 MG 1 tablet Orally three ties a day Active dexAMETHasone 2 MG 1 tablet Orally twice a day 10/21/2024 Active metFORMIN HCl 500 MG 1 tablet with a meal Orally Once a day 11/11/2024 Active Rosuvastatin Calcium 40 MG Oral Active Ciprofloxacin HCl 250 MG 1 tablet Orally every 12 hrs 12/03/2024 Active Lisinopril 40 MG 1 tablet Orally Once a day Active Nadolol 20 MG 1 tablet Orally Once a day Active Nitroglycerin 0.4 MG 1 tablet under the tongue and allow to dissolve as needed Sublingual every 0 hrs 10/20/2011 Active Adult Aspirin EC Low Strength 81 MG 1 tablet Orally Once a day Active FreeStyle Lite Test - use to check fasting blood sugars on Mondays , Monday and Fridays In Vitro DX: Diabetes E11.9 11/11/2024 Active Lancets 30G - use to check fasting blood sugars on Monday and Fridays DX: Diabetes E11.9 11/11/2024 Active [facility] Isopropyl Alcohol Wipes 70 % use to check blood sugars Externally On Wednesdays and Fridays DX: Diabetes E11.9 11/11/2024 Active Gauze Pads 3 X3 use to check blood sugars Monday and Fridays DX: Diabetes E11.9 11/11/2024 Active FreeStyle Lite w/Device use to check fasting blood sugars Monday and Fridays DX: Diabetes E11.9 11/11/2024 Active Social History Tobacco Use: Social History Observation Description Date Details (start date - stop date) Former Smoker NA - NA Sex Assigned At : Social History Observation Description Sex Assigned At Female Tobacco Control (Standard) Question Answer Notes Tobacco use: Former smoker How long has it been since you last smoked? Shiv ter than 10 years Additional Findings: Tobacco non-user Ex-cigaret te smoker Vital Signs Temperature 98.1 degrees Fahrenheit 12/12/19 25 Blood pressure systolic 137 mm Hg 12/12/19 25 Blood pressure diastolic 74 mm Hg 025 Heart Rate 64 /min 12/11/2024 Height 60 in 12/11/2024 Weight 170 lbs 12/11/2024 BMI 33.2 kg/m2 12/11/2024 Encounters Encounter Location Date Provider Diagnosis Michael Templeton III, MD [address] [place] [address] [place] [address] 12/11/2024 Michael Templeton Type 2 diabetes adelita itus with hyperglycemia, without long-term current use of insulin E11.65 ; Other low back pain M54.59 ; Coronary artery disease I25.10 ; Essential hypertension I10 ; Hyperlipidemia E78.5 ; Former smoker Z87.891 ; Vertigo R42 and Carpal tunnel syndrome G56.00 Assessments Encounter Date Diagnosis (ICD Code) Assessment Notes Treat ment Notes Treatment Clinical Notes 12/11/2024 Type 2 diabetes mellitus with hyperglycemia, without long-term current use of insulin (ICD-10 - E11.65) The hemoglobin A1c is 6.9 on the fasting glucose is 142. Therapy with metformin has been initiated. 12/11/2024 Other low back pain (ICD-10 - M54.59) She will continue with heat, rest, acetaminophen and dexamethasone. 12/11/2024 Coronary artery disease (ICD-10 - I25.10) She reports no exertional chest pain since her last visit. She has had no palpitations or dyspnea on exertion. No change in her medication was necessary. I recommended that she see her industrial coffee grinder at appropriate intervals. 12/11/2024 Essential hypertension (ICD-10 - I10) Her blood pressure has been stable. She is compliant with all of her medications. No change in her regimen as necessary today. I A repeat visit was arranged recommended aggressive weight loss and sodium restriction.The systolic blood pressure 141 is slightly elevated will be observed carefully. 12/11/2024 Hyperlipidemia (ICD-10 - E78.5) Comprehensive blood work including a fasting lipid profile has been ordered. Her lipids have been maintained in the normal range. 12/11/2024 Former smoker (ICD-1 0 - Z87.891) She is highly motivated not to smoke and has a plan for prevention of relapse. 12/11/2024 Vertigo (ICD-10 - R42) This problem is addressed. The episodic vertigo is well controlled meclozine. 12/11/2024 Carpal tunnel syndrome (ICD-10 - G56.00) The intermittent tingling in the left hand may be nerve compression in the carpal tunnel. It is mild and will be observed at this time. There is no indication for surgery at this time. Plan Of Treatment Medication Medication Name Sig Start Date Stop Date Notes dexAMETHasone 2 MG 1 tablet Orally twice a day for 10 days 12/11/2024 Cyclobenzaprine HCl 10 MG 1 tablet Orall y three ties a day dexAMETHasone 2 MG 1 tablet Orally twice a day 10/21/2024 metFORMIN HCl 500 MG 1 tablet with a rusty l Orally Once a day 11/11/2024 Rosuvastatin Calcium 40 MG Oral Ciprofloxacin HCl 250 MG 1 tablet Orally every 12 hrs 12/03/2024 Lisinopril 40 MG 1 tablet Orally Once a day Nadolol 20 MG 1 tablet Orally Once a day Nitroglycerin 0.4 MG 1 tablet under the tongue and allow to dissolve as needed Sublingual every 0 hrs 10/20/2011 Adult Aspirin EC Low Strength 81 MG 1 tablet Orally Once a day FreeStyle Lite Test - use to check fasti ng blood sugars on Mondays , Monday and Fridays In Vitro 11/11/2024 DX: Diabetes E11.9 Lancets 30G - use to check fasting blood sugars on Monday and Fridays11/11/2024 DX: Diabetes E11.9 [facility] Isopropyl Alcohol Wipes 70 % use to check blood sugars Externally On Wednesdays and Fridays11/11/2024 DX: Diabetes E11.9 Gauze Pads 3 X3 use to check blood sugars Monday and Fridays11/11/2024 DX: Diabetes E11.9 FreeStyle Lite w/Device use to check fas ting blood sugars Monday and Fridays11/11/2024 DX: Diabetes E11.9 Next Appt Details Follow Up: as scheduled on , Reason: OV Provider Name:Michael Rose Yokasta , 04/01/2025 03:00:00 PM, [address] [place] [address] [address], [place], [address], Provider Name:Michael Rose Yokasta , 11/17/2025 02:00:00 PM, [address] [place] [address] [address], [place], [address], Progress Notes * Gary PAULINOtaDOB: (74 yo F)Acc No.[id number]:12/11/2024 Progress Notes Patient: Poly PLATAMónica DENNIS Provider: Evelyn Templeton MD :1950 A ge:74 Y S ex:Female Date:12/11/2024 Address:[facility] [address] , [place], [place]-[address] Subjective: * Chief Complaints: * R ight low back pain with sciaticaHypertensionObesityHyperlipidemiaDiabetes * HPI: C OVID-19 Screening: She returns for more evaluation of the right low back pain. It is now closer to the lumbar spine and just above the posterior iliac crest. It is aggravated by straight leg raising. It is not present at rest. At this point the pain is most consistent with a lumbar etiology.? Images of lumbar spine have been ordered.She was given a course of dexamethasone and will continue the combination acetaminophen heat and massage. She was advised that this medication would elevate her blood sugars temporarily. Questions H ave you had any new onset fever, chills, cough, congestion, sore throat, shortness of breath, muscle aches? N o * ROS: G eneral/Constitutional: pain R ight-sided low back pain. C hills d enies.?Fatigue a dmits. F ever d enies. E NT: Decreased hearing d enies. R espiratory: Cough d enies. C ardiovascular: [...] urination d enies. M usculoskeletal: Muscle aches R ight lower back. P ainful joints d enies. S ciatica [...] dysfunctional uterine bleeding 1999normal colonoscopy, Dr. Silva, [facility] January 2010laparoscopic cholecystectomy, Dr. Garcia, [facility] 01/19/2015Gallbladder * Hospitalization/Major Diagno stic Procedure: v [...] dditional Findings: Tobacco non-user E x-cigarette smoker S he was for many years and is . She has a son Beltran. She is retired and speaks fluent Hungarian. She was born in [facility]. She is a former smoker. She has no hinduism objection to blood transfusion. * Medications: T akingLisinopril 40 MG Tablet 1 tablet Orally Once [...] 1 tablet Orally three ties a day dexAMETHasone 2 MG Tablet 1 tablet Orally twice a day metFORMIN HCl 500 MG Tablet 1 tablet with a meal Orally Once a day FreeStyle Lite w/Device Kit use to check fasting blood sugars Monday and Fridays , Notes to Pharmacist: DX: Diabetes E11.9FreeStyle Lite Test - Strip use to check fasting blood sugars on Mondays , Monday and Fridays In Vitro , Notes to Pharmacist: DX: Diabetes E11.9Lancets 30G - Miscellaneous use to check fasting blood sugars on Monday and Fridays , Notes to Pharmacist: DX: Diabetes E11.9[facility] Isopropyl Alcohol Wipes 70 % Miscellaneous use to check blood sugars Externally On Wednesdays and Fridays , stop date 11/06/2025, Notes to Pharmacist: DX: Diabetes E11.9Gauze Pads 3 X3 Pad use to check blood sugars Monday and Fridays , Notes to Pharmacist: DX: Diabetes E11.9Medication List reviewed and reconciled with the patientTaking Lisinopril 40 MG Tablet 1 tablet Orally [...] 1 tablet Orally twice a day Taking metFORMIN HCl 500 MG Tablet 1 tablet with a meal Orally Once a day Taking FreeStyle Lite w/Device Kit use to check fasting blood sugars Monday and Fridays , Notes to Pharmacist: DX: Diabetes E11.9Taking FreeStyle Lite Test - Strip use to check fasting blood sugars on Mondays , Monday and Fridays In Vitro , Notes to Pharmacist: DX: Diabetes E11.9Taking Lancets 30G - Miscellaneous use to check fasting blood sugars on Monday and Fridays , Notes to Pharmacist: DX: Diabetes E11.9Taking [facility] Isopropyl Alcohol Wipes 70 % Miscellaneous use to check blood sugars Externally On Wednesdays and Fridays , stop date 11/06/2025, Notes to Pharmacist: DX: Diabetes E11.9Taking Gauze Pads 3 X3 Pad use to check blood sugars Monday and Fridays , Notes to Pharmacist: DX: Diabetes E11.9Medication List reviewed and reconciled with the patient * Allergies: A mlodipine Besylate: diarrhea,facial flushgrapesno[Allergies Verified] Objective: * Vitals: H t: 60, Wt:170, BMI:33.2, BP:137/74, HR:64, Temp:98.1, Ht-cm: 152.4, Wt-k.11. * P ast Orders: Lab:Paola josue Fast [...] 0.0-0.012 X10*3/uL) 0.000 (Ref Range: 0.0-0.012 X10*3/uL) * Imaging:MM tomosynthesis scr eening BI * Performed Date 10/10/2024 09/05/2023 06/20/2022 01:40 PM 01:45 PM 12:45 PM Order Date 10/10/2024 09/05/2023 06/20/2022 ???Imaging:XR DEXA axial skeleton (Order Date - 10/10/2024) (Performed Date - 10/10/2024) * Imaging:MAMMOGRAM DIGITAL BI LATERAL SCREEN * Performed Date 11/07/2023 03/12/2019 01/23/2018 08:53 AM 03:22 PM Order Date 09/05/2023 03/12/2019 01/01/2018 10/10/2024 Result: undefined undefined * Examination: G eneral Examination: GENERAL APPEARANCE: p leasant, well nourished, well developed, in no acute distress, calm and relaxed: obese: woman. HEAD: a traumatic, normocephalic. EYES: e [...] S1, S2 normal, no s3, or vascular bruits, Old healed sternotomy incision. LUNGS: c lear to auscultation . BREASTS: N ot examined. ABDOMEN: b owel sounds normal, no ascites, no organomegaly, no mass. RECTAL EXAM: n ot examined. MUSCULOSKELETAL: e xtremities unremarkable, no clubbing, cyanosis or edema, Positive straight leg raising on the right, moderate lower lumbar muscle spasm with decreased range of motion. PERIPHERAL PULSES: n ormal. NEUROLOGIC: a lert and oriented, cranial nerves 2-12 grossly intact, deep tendon reflexes 2+ symmetrical, motor strength normal upper and lower extremities, sensory exam intact. PSYCH: a lert, oriented. Assessment: * Assessment: 1. T ype 2 diabetes mellitus with hyperglycemia, without long-term current use of insulin - E11.65 (Primary) N otes :The hemoglobin A1c is 6.9 on the fasting glucose is 142. Therapy with metformin has been initiated. 2 . O ther low back pain - M54.59 N otes :She will continue with heat, rest, acetaminophen and dexamethasone. 3 . C oronary artery disease - I25.10 N otes :She reports no exertional chest pain since her last visit. She has had no palpitations or dyspnea on exertion. No change in her medication was necessary. I recommended that she see her industrial coffee grinder at appropriate intervals. 4 . E ssential hypertension - I10 [...] for prevention of relapse. 7 . V ertigo - R42 N otes :This problem is addressed. The episodic vertigo is well controlled meclozine. 8 . C arpal tunnel syndrome - G56.00 N otes :The intermittent tingling in the left hand may be nerve compression in the carpal tunnel. It is mild and will be observed at this time. There is no indication for surgery at this time. Plan: * Treatment: 2. O thers Continue Ciprofloxacin HCl Tablet, 250 MG, 1 tablet, Orally, every 12 hrs; C ontinue dexAMETHasone Tablet, 2 MG, 1 tablet, Orally, twice a day. * Imaging: * I maging: XR lumbar spine 2-3V (Performed Date - 12/11/2024) * Procedure Codes: * Preventive Medicine: Counseling: [...] tobacco use and urged to quit. 0 12/11/2024 DM Care Plan: P atient Lifestyle Goals P atient wants to be able to manage diabetes without too much effort. T reatment Goals H bA1C < 7.0, Blood Sugars less than < 115. B arriers n o barriers. S elf-Managment Goals W ork on weight loss, with a goal of losing 1 lb per week, Increase exercise to 3 times a week for 30 mins. * Follow Up: a s scheduled on 12/23/2024 (Reason: OV) * Images: * Sign off status: Completed true * Provider: Evelyn Templeton MD Date: 0 12/11/2024 Generated for Maribeth almanzar/Eliane/Keriitting on: 05/31/2024 08:39 AM EST History and Physical Notes * HPI (History of Present Illness) Category Sub-Category Detail Notes COVID-19 Screening Questions Have you had any new onset fever, chills, cough, congestion, sore throat, shortness of breath, muscle aches?: No Examination Category Sub-Category Detail Notes General Examination GENERAL APPEARANCE: pleasant , well nourished, well developed, in no acute distress, calm and relaxed: obese: woman HEAD: atraumatic, normocep halic EYES: eomi, perrla, anicte christi, conjugate EARS: normal NOSE: septum intact NECK/THYROID: no jugular venous di stention, no carotid bruit, thyroid normal HEART: no clicks, gallops, murmurs, or rubs, regular rhythm, S1, S2 normal, no s3, or vascular bruits, Old healed sternotomy incision LUNGS: clear to auscultatio n ABDOMEN: bowel sounds normal, no ascites, no organomegaly, no mass NEUROLOGIC: alert and oriented, cranial nerves 2-12 grossly intact, deep tendon reflexes 2+ symmetrical, motor strength normal upper and lower extremities, sensory exam intact SKIN: no suspicious lesion s, anicteric PERIPHERAL PULSES: normal BREASTS: Not examined MUSCULOSKELETAL: extremities unremark able, no clubbing, cyanosis or edema, Positive straight leg raising on the right, moderate lower lumbar muscle spasm with decreased range of motion LYMPH NODES: no enlarged lymph no magdalene,spleen normal RECTAL EXAM: not examined PSYCH: alert, oriented ORAL CAVITY: normal, unremarkable
--- OUTSIDE RECORDS SUMMARY | 2024-12-23 04:15 | XMS_ITS ---
Author Organization Michael Templeton III, MD Address [address] [place] [address] Care Team Providers Care Alterations Sewer Name Role Phone Dr. Michael Templeton III Primary Care Provider Allergies Allergen (clinical drug ingredient) Drug/Non Drug Allergy documented on EMR Reaction Allergy Type Onset Date Status amlodipine Amlodipine Besylate diarrhea,facial flush Drug Allergy Active Grapes grapes (uncoded) Unknown Allergy Act lucina REASON FOR VISIT follow up Medications Medication SIG (Take, Route, Frequency, Duration) Notes Start Date End Date Status FreeStyle Lite Test - use to check fasting blood sugars on Mondays , Monday and Fridays In Vitro DX: Diabetes E11.9 11/11/2024 Active [facility] Isopropyl Alcohol Wipes 70 % use to check blood sugars Externally On Wednesdays and Fridays DX: Diabetes E11.9 11/11/2024 Active Lancets 30G - use to check fasting blood sugars on Monday and Fridays DX: Diabetes E11.9 11/11/2024 Active Gauze Pads 3 X3 use to check blood sugars Monday and Fridays DX: Diabetes E11.9 11/11/2024 Active dexAMETHasone 2 MG 1 tablet Orally twice a day 12/11/2024 Active FreeStyle Lite w/Device use to check fasting blood sugars Monday and Fridays DX: Diabetes E11.9 11/11/2024 Active Cyclobenzaprine HCl 10 MG 1 tablet Orally three ties a day Active Rosuvastatin Calcium 40 MG Oral Active metFORMIN HCl 500 MG 1 tablet with a meal Orally Once a day 11/11/2024 Active dexAMETHasone 2 MG 1 tablet Orally twice a day 10/21/2024 Active Lisinopril 40 MG 1 tablet Orally Once a day Active Ciprofloxacin HCl 250 MG 1 tablet Orally every 12 hrs 12/03/2024 Active Adult Aspirin EC Low Strength 81 MG 1 tablet Orally Once a day Active Nitroglycerin 0.4 MG 1 tablet under the tongue and allow to dissolve as needed Sublingual every 0 hrs 10/20/2011 Active Nadolol 20 MG 1 tablet Orally Once a day Active Social History Tobacco Use: Social History [...] Additional Findings: Tobacco non-user Ex-cigaret te smoker Encounters Encounter Location Date Provider Diagnosis Michael Templeton III, MD [address] [place] [address] [place] [address] 12/23/2024 Michael Templeton Type 2 diabetes mellitus with hyperglycemia, without long-term current use of insulin E11.65 Assessments Encounter Date Diagnosis (ICD Code) Assessment Notes Treatment Notes Treatment Clinical Notes 12/23/2024 Type 2 diabetes mellitus with hyperglycemia, without long-term current use of insulin (ICD-10 - E11.65) The hemoglobin A1c is 6.9 on the fasting glucose is 142. Therapy with metformin has been initiated. Plan Of Treatment Medication Medication Name Sig Start Date Stop Date Notes FreeStyle Lite Test - use to check fasti ng blood sugars on Mondays , Monday and Fridays In Vitro 11/11/2024 DX: Diabetes E11.9 [facility] Isopropyl Alcohol Wipes 70 % use to check blood sugars Externally On Wednesdays and Fridays11/11/2024 DX: Diabetes E11.9 Lancets 30G - use to check fasting blood sugars on Monday and Fridays 11/11/2024 DX: Diabetes E11.9 Gauze Pads 3 X3 use to check blood sugars Monday and Fridays11/11/2024 DX: Diabetes E11.9 dexAMETHasone 2 MG 1 tablet Orally twice a day 12/11/2024 FreeStyle Lite w/Device use to check fas ting blood sugars Monday and Fridays11/11/2024 DX: Diabetes E11.9 Cyclobenzaprine HCl 10 MG 1 tablet Orall y three ties a day Rosuvastatin Calcium 40 MG Oral metFORMIN HCl 500 MG 1 tablet with a ursty l Orally Once a day 11/11/2024 dexAMETHasone 2 MG 1 tablet Orally twice a day 10/21/2024 Lisinopril 40 MG 1 tablet Orally Once a day Ciprofloxacin HCl 250 MG 1 tablet Orally every 12 hrs 12/03/2024 Adult Aspirin EC Low Strength 81 MG 1 tablet Orally Once a day Nitroglycerin 0.4 MG 1 tablet under the tongue and allow to dissolve as needed Sublingual every 0 hrs 10/20/2011 Nadolol 20 MG 1 tablet Orally Once a day Next Appt Details Provider Name:Michael Templeton , 04/01/2025 03:00:00 PM, [address] [place] [address] [address], [place], [address], Provider Name:Michael Templeton , 11/17/2025 02:00:00 PM, [address] [place] [address] [address], [place], [address], Progress Notes * Mónica PAULINODOB: (75 yo F)Acc No.[id number]:12/23/2024 Progress Notes Patient: Mónica WILDER Provider: Evelyn Templeton MD :1950 A ge:74 Y S ex:Female Date:12/23/2024 Address:[facility] [address], [place] , [id number] Subjective: * Chief Complaints: * 1 . Follow up. * HPI: C OVID-19 Screening: Questions H ave you had any new onset fever, chills, cough, congestion, sore throat, shortness of breath, muscle aches? N o * ROS: G eneral/Constitutional: pain o nly normal aches and pains. C hills d enies.?Fatigue a dmits. F ever d enies. E NT: Decreased hearing d enies. R espiratory: Cough d enies. C ardiovascular: Chest pain with exertion d enies. D yspnea on exertion?denies. S hortness of breath d enies. G astrointestinal: Constipation d enies. D ecreased appetite d enies.?Diarrhea d enies. H eartburn d enies. N ausea d enies. R ectal bleeding?denies. V omiting d enies. H ematology: bruising [...] Depressed mood d enies. * Medical History: H ypertension, Anxiety, Abnormal mammogram, Hyperlipidemia, CAD, [place] 2003, 3 vessel CABG, Choleithiases, Hematuria, last bilateral mammogram 10/05/12 @ , Dysfunctional uterine bleeding 1999, negative biopsy, normal colonoscopy January 2010 Dr. Schumacher, Vertigo. * Surgical History: t hree-vessel coronary artery bypass surgery 2003, negative endometrial biopsy for dysfunctional uterine bleeding 1999, normal colonoscopy, Dr. Silva, [facility] January 2010, laparoscopic cholecystectomy, Dr. Garcia, [facility] 01/19/2015, Gallbladder . * Hospitalization/Major Diagno stic Procedure: v aginal bleed 08/2018, No history . * Family History: F ather: 55 yrs, [...] [place]. She is retired and speaks fluent [place]. She was born in [facility]. She is a former smoker. She has no congregation objection to blood transfusion. * Medications: T aking Ciprofloxacin HCl 250 MG Tablet 1 tablet Orally every 12 hrs , Taking Lisinopril 40 MG Tablet 1 tablet Orally Once a day , Taking Nadolol 20 MG Tablet 1 tablet Orally Once a day , Taking Nitroglycerin 0.4 MG Tablet Sublingual 1 tablet under the tongue and allow to dissolve as needed Sublingual every 0 hrs , Taking Adult Aspirin EC Low Strength 81 MG Tablet Delayed Release 1 tablet Orally Once a day , Taking Rosuvastatin Calcium 40 MG Tablet Oral , Taking Cyclobenzaprine HCl 10 MG Tablet 1 tablet Orally three ties a day , Taking dexAMETHasone 2 MG Tablet 1 tablet Orally twice a day , Taking metFORMIN HCl 500 MG Tablet 1 tablet with a meal Orally Once a day , Taking FreeStyle Lite w/Device Kit use to check fasting blood sugars Monday and Fridays , Notes to Pharmacist: DX: Diabetes E11.9, Taking FreeStyle Lite Test - Strip use to check fasting blood sugars on Mondays , Monday and Fridays In Vitro , Notes to Pharmacist: DX: Diabetes E11.9, Taking Lancets 30G - Miscellaneous use to check fasting blood sugars on Monday and Fridays , Notes to Pharmacist: DX: Diabetes E11.9, Taking [facility] Isopropyl Alcohol Wipes 70 % Miscellaneous use to check blood sugars Externally On Wednesdays and Fridays , Notes to Pharmacist: DX: Diabetes E11.9, Taking Gauze Pads 3 X3 Pad use to check blood sugars Monday and Fridays , Notes to Pharmacist: DX: Diabetes E11.9, Taking dexAMETHasone 2 MG Tablet 1 tablet Orally twice a day , Medication List reviewed and reconciled with the patient * Allergies: A mlodipine Besylate: diarrhea,facial flush, grapes. Objective: * Vitals: * Examination: G eneral Examination: GENERAL APPEARANCE: p leasant, well nourished, well developed, in no acute distress, calm and relaxed. HEAD: a traumatic, normocephalic. EYES: e deepak, [...] 142. Therapy with metformin has been initiated. Plan: * Treatment: 2. O thers Continue Ciprofloxacin HCl Tablet, 250 MG, 1 tablet, Orally, every 12 hrs; C ontinue dexAMETHasone Tablet, 2 MG, 1 tablet, Orally, twice a day. * Images: * The named appointment provid er may or may not be the originator of this progress note, and it is not deemed complete until electronically signed by the appointment provider. Sign off status: Pending * Provider: Evelyn Templeton MD Date: 0 12/23/2024 Generated for Nallelyi ng/Eliane/eTransmitting on: 05/31/2024 08:40 AM EST History and Physical Notes * HPI (History of Present Illness) Category Sub-Category Detail Notes COVID-19 Screening Questions Have you had any new onset fever, chills, cough, congestion, sore throat, shortness of breath, muscle aches?: No Examination Category Sub-Category Detail Notes General Examination GENERAL APPEARANCE: pleasant , well nourished, well developed, in no acute distress, calm and relaxed HEAD: atraumatic, normocep halic EYES: eomi, perrla, [...]
--- OUTSIDE RECORDS SUMMARY | 2024-12-27 04:45 | XMS_ITS ---
Author Organization Michael Templeton III, MD Address [address] [place] [address] Care Team Providers Care Weeder Thinner Name Role Phone Dr. Michael Templeton III Primary Care Provider Allergies Allergen (clinical drug ingredient) Drug/Non Drug Allergy documented on EMR Reaction Allergy Type Onset Date Status amlodipine Amlodipine Besylate diarrhea,facial flush Drug Allergy Active Grapes grapes (uncoded) Unknown Allergy Act lucina Results Component Value Reference Range Notes RBS/Hemocue glucose Reviewed date:12/27/2024 09:57:12 AM Interpretation: Performing Lab: Notes/Report: RBS 133 REASON FOR VISIT Coronary artery disease, I pretension, Hyperlipidemia, Left knee pain, Diabetes, Low back pain Medications Medication SIG (Take, Route, Frequency, Duration) Notes Start Date End Date Status dexAMETHasone 2 MG 1 tablet Orally twice a day 12/11/2024 Active Ciprofloxacin HCl 250 MG 1 tablet Orally every 12 hrs 12/03/2024 Active dexAMETHasone 2 MG 1 tablet Orally twice a day 10/21/2024 Active Lisinopril 40 MG 1 tablet Orally Once a day Active Gauze Pads 3 X3 use to check blood sugars Monday and Fridays DX: Diabetes E11.9 11/11/2024 Active metFORMIN HCl 500 MG 1 tablet with a meal Orally Once a day 11/11/2024 Active [facility] Isopropyl Alcohol Wipes 70 [...] and Fridays DX: Diabetes E11.9 11/11/2024 Active Rosuvastatin Calcium 40 MG Oral Active Cyclobenzaprine HCl 10 MG 1 tablet Orally three ties a day Active Nitroglycerin 0.4 MG 1 [...] has it been since you last smoked? Julianoa ter than 10 years Additional Findings: Tobacco non-user Ex-cigaret te smoker Vital Signs Temperature 98.1 degrees Fahrenheit 12/28/19 25 Blood pressure systolic 139 mm Hg 12/28/19 25 Blood pressure diastolic 69 mm Hg 025 Heart Rate 67 /min 12/27/2024 Height 60 in 12/27/2024 Weight 167 lbs 12/27/2024 BMI 32.61 kg/m2 12/27/2024 Encounters Encounter Location Date Provider Diagnosis Michael Templeton III, MD [address] [place] [address] [place] [address] 12/27/2024 Michael Templeton Type 2 diabetes adelita itus with hyperglycemia, without long-term current use of insulin E11.65 ; Coronary artery disease I25.10 ; Obesity E66.9 ; Hyperlipidemia E78.5 ; Former smoker Z87.891 ; Insomnia G47.00 ; Left medial knee pain M25.562 and Varicose veins of left lower extremity with pain I83.812 Assessments Encounter Date Diagnosis (ICD Code) Assessment Notes Treat ment Notes Treatment Clinical Notes 12/27/2024 Type 2 diabetes mellitus with hyperglycemia, without long-term current use of insulin (ICD-10 - E11.65) The hemoglobin A1c is 6.9 on the fasting glucose is 142. Therapy with metformin has been initiated. 12/27/2024 Coronary artery disease (ICD-10 - I25.10) She reports no exertional chest pain since her last visit. She has had no palpitations or dyspnea on exertion. No change in her medication was necessary. I recommended that she see her patient consumer marketer at appropriate intervals. 12/27/2024 Obesity (ICD-10 - E66.9) Her body mass index is 32. We have reviewed the elements of a weight loss diabetic diet. I recommended aggressive sodium restriction and calorie restriction as well. 12/27/2024 Hyperlipidemia (ICD-10 - E78.5) Her lipids are currently stable. She will have frequent fasting lipid determinations. No change in her regimen was needed. 12/27/2024 Former smoker (ICD-1 0 - Z87.891) She is highly motivated not to smoke and has a plan for prevention of relapse. 12/27/2024 Insomnia (ICD-10 - G47.00) I have prescribed 10 5 mg LPM tablets. I instructed her to take these as needed so she could get back into a resting state. I did not recommend that she take sleeping pills every night. 12/27/2024 Left medial knee derek n (ICD-10 - M25.562) She reports that the knee pain has resolved. 12/27/2024 Varicose veins of left lower extremity with [...] 1 tablet Orally twice a day 12/11/2024 Ciprofloxacin HCl 250 MG 1 tablet Orally every 12 hrs 12/03/2024 dexAMETHasone 2 MG 1 tablet Orally twice a day 10/21/2024 Lisinopril 40 MG 1 tablet Orally Once a day Gauze Pads 3 X3 use to check blood sugars Monday and Fridays11/11/2024 DX: Diabetes E11.9 metFORMIN HCl 500 MG 1 tablet with a rusty l Orally Once a day 11/11/2024 [facility] Isopropyl Alcohol Wipes 70 % use to check blood sugars Externally On Wednesdays and Fridays11/11/2024 DX: Diabetes E11.9 FreeStyle Lite Test - use to check fasti ng blood sugars on Mondays , Monday and Fridays In Vitro 11/11/2024 DX: Diabetes E11.9 Lancets 30G - use to check fasting blood sugars on Monday and Fridays11/11/2024 DX: Diabetes E11.9 FreeStyle Lite w/Device use to check fas ting blood sugars Monday and Fridays11/11/2024 DX: Diabetes E11.9 Rosuvastatin Calcium 40 MG Oral Cyclobenzaprine HCl 10 MG 1 tablet Orall y three ties a day Nitroglycerin 0.4 MG 1 tablet under the tongue and allow to dissolve as needed Sublingual every 0 hrs 10/20/2011 Adult Aspirin EC Low Strength 81 MG 1 tablet Orally Once a day Nadolol 20 MG 1 tablet Orally Once a day Pending Test Test Name Order Date PROFILE, FASTING (COMPREHENSIVE METABOLI C) 12/27/2024 CBC w DIFF 12/27/2024 Lipid Panel 12/27/2024 Microalbumin, Random 12/27/2024 Hemoglobin A1c 12/27/2024 Next Appt Details Follow Up: 3 Months, Reason: OV Provider Name:Michael Templeton , 04/01/2025 03:00:00 PM, [address] [place] [address] [address], [place], [address], Provider Name:Michael Templeton , 11/17/2025 02:00:00 PM, [address] [place] [address] [place], [address], Progress Notes * Mónica PAULINODOB: (74 yo F)Acc No.[id number]:12/27/2024 Progress Notes Patient: Poly Mónica LIRA Provider: Evelyn Templeton MD :1950 A ge:74 Y S ex:Female Date:12/27/2024 Address:[facility] [address], [facility], [id number] Subjective: * Chief Complaints: * C oronary artery diseaseI pretensionHyperlipidemiaLeft knee painDiabetesLow back pain * HPI: C OVID-19 Screening: She returns for management of her back pain and to review the x-rays of her lumbar spine.? She has no fractures but does have spondylosis and degenerative disc disease. She reports the back pain has completely resolved and she no longer requires medication.She has had no chest pain or shortness of breath. She has had no sciatica. She is trying to lose weight. Her blood pressure is well controlled today. She continues to have left knee pain but no varicose vein pain. Follow-up visit was arranged.Her recent blood work was reviewed. Questions H ave you had any new onset fever, chills, cough, congestion, sore throat, shortness of breath, muscle aches? N o * ROS: G eneral/Constitutional: pain L eft medial knee pain, otherwise only normal aches and pains. C hills d enies. F atigue a [...] enies.?Headache d enies. L ow back pain R esolved. P sychiatric: Depressed mood d enies. * Medical History: * Surgical History: t hree-vessel coronary artery bypass surgery 2003negative endometrial biopsy for dysfunctional uterine bleeding 2000normal colonoscopy, Dr. Silva, [facility] January 2010laparoscopic cholecystectomy, Dr. Garcia, [facility] 01/19/2015Gallbladder * Hospitalization/Major Diagno stic Procedure: v [...] Beltran. She is retired and speaks fluent Telugu. She was born in [facility]. She is a former smoker. She has no nondenominational objection to blood transfusion. * Medications: T akingCiprofloxacin HCl 250 MG Tablet 1 tablet Orally every 12 hrs Lisinopril 40 MG Tablet 1 tablet Orally [...] with a meal Orally Once a day [employer] w/Device Kit use to check fasting blood [...] Fridays , Notes to Pharmacist: DX: Diabetes E11.9Gauze Pads 3 X3 Pad use to check blood sugars Monday and Fridays , Notes to Pharmacist: DX: Diabetes E11.9dexAMETHasone 2 MG Tablet 1 tablet Orally twice a day Medication List reviewed and reconciled with the patientTaking Ciprofloxacin HCl 250 MG Tablet 1 tablet Orally every 12 hrs Taking Lisinopril 40 MG Tablet 1 tablet [...] , Notes to Pharmacist: DX: Diabetes E11.9Taking Gauze Pads 3 X3 Pad use to check blood sugars Monday and Fridays , Notes to Pharmacist: DX: Diabetes E11.9Taking dexAMETHasone 2 MG Tablet 1 tablet Orally twice a day Medication List reviewed and reconciled with the patient * Allergies: A mlodipine Besylate: diarrhea,facial flushgrapesno[Allergies Verified] Objective: * Vitals: H t: 60, Wt:167, BMI:32.61, BP:139/69, HR:67, Temp:98.1, Ht-cm: 152.4, Wt-k.75. * P ast Orders: Lab:[facility] [place]. Pane l Fast * Collection Date 11/11/2024 03/14/2022 10/11/2021 [...] 0.0-0.012 X10*3/uL) 0.000 (Ref Range: 0.0-0.012 X10*3/uL) ???Lab:RBS/Hemocue glucose (Order Date - 12/27/2024) (Collection Date & Time - 12/27/2024 09:56 AM)?ValueReference Range?[id number] * Imaging:MM tomosynthesis scr eening BI * [...] normal, no s3, or vascular bruits, Old median sternotomy scar. LUNGS: c lear to auscultation . BREASTS: N ot examined. ABDOMEN: b owel sounds normal, no ascites, no organomegaly, no mass: centripital obesity. RECTAL EXAM: n ot examined. [...] necessary. I recommended that she see her patient consumer marketer at appropriate intervals. 2 . T ype 2 diabetes mellitus with hyperglycemia, without long-term current use of insulin - E11.65 N otes :The hemoglobin A1c is 6.9 on the fasting glucose is 142. Therapy with metformin has been initiated. 3 . O besity - E66.9 N otes :Her body mass index is 32. We have reviewed the elements of a weight loss diabetic diet. I recommended aggressive sodium restriction and calorie restriction as well. 4 . H yperlipidemia - E78.5 N otes :Her lipids are currently stable. She will have frequent fasting lipid determinations. No change in her regimen was needed. 5 . F ormer smoker - Z87.891 N otes :She is highly motivated not to smoke and has a plan for prevention of relapse. 6 . I nsomnia - G47.00 N otes :I have prescribed 10 5 mg LPM tablets. I instructed her to take these as needed so she could get back into a resting state. I did not recommend that she take sleeping pills every night. 7 . L eft medial knee pain - M25.562 N otes :She reports that the knee pain has resolved. 8 . V aricose veins of left lower extremity with pain - I83.812 ?Notes :She has not had recent pain from her varicose veins. She will use heat and rest. If they become painful. Otherwise, she will elevate her legs periodically and use support hose. Plan: * Treatment: 2. T ype 2 diabetes mellitus with hyperglycemia, without long-term current use of insulin Continue Lisinopril Tablet, 40 MG, 1 tablet, Orally, Once a day; C ontinue Nadolol Tablet, 20 MG, 1 tablet, Orally, Once a day; C ontinue Nitroglycerin Tablet Sublingual, 0.4 MG, 1 tablet under the tongue and allow to dissolve as needed, Sublingual, every 0 hrs; C ontinue Adult Aspirin EC Low Strength Tablet Delayed Release, 81 MG, 1 tablet, Orally, Once a day; C ontinue Rosuvastatin Calcium Tablet, 40 MG, Oral; C ontinue Cyclobenzaprine HCl Tablet, 10 MG, 1 tablet, Orally, three ties a day; C ontinue metFORMIN HCl Tablet, 500 MG, 1 tablet with a meal, Orally, Once a day; C ontinue FreeStyle Lite Kit, w/Device, use to check fasting blood sugars Monday and Fridays, Notes to Pharmacist: DX: Diabetes E11.9; C ontinue FreeStyle Lite Test Strip, -, use to check fasting blood sugars on Mondays , Monday and Fridays In Vitro, Notes to Pharmacist: DX: Diabetes E11.9; C ontinue Lancets 30G Miscellaneous, -, use to check fasting blood sugars on Monday and Fridays, Notes to Pharmacist: DX: Diabetes E11.9; C ontinue [facility] Isopropyl Alcohol Wipes Miscellaneous, 70 %, use to check blood sugars, Externally, On Wednesdays and Fridays, Notes to Pharmacist: DX: Diabetes E11.9; C ontinue Gauze Pads Pad, 3 X3 , use to check blood sugars Monday and Fridays, Notes to Pharmacist: DX: Diabetes E11.9; C ontinue dexAMETHasone Tablet, 2 MG, 1 tablet, Orally, twice a day. L AB: PROFILE, FASTING (COMPREHENSIVE METABOLIC) L AB: CBC w DIFF L AB: Lipid Panel L AB: Microalbumin, Random L AB: Hemoglobin A1c L AB: RBS/Hemocue glucose (Collection Date & Time - 12/27/2024 09:56 AM) Value Reference Range R BS 133 3.?Obesity?LAB: PROFILE, FASTING (COMPREHENSIVE METABOLIC) ?LAB: CBC w DIFF ?LAB: Lipid Panel ?LAB: Microalbumin, Random ?LAB: Hemoglobin A1c4.?Hyperlipidemia?LAB: PROFILE, FASTING (COMPREHENSIVE METABOLIC) ?LAB: CBC w DIFF ?LAB: Lipid Panel ?LAB: Microalbumin, Random ?LAB: Hemoglobin A1c * Procedure Codes: 8 2947 ASSAY, GLUCOSE, BLOOD QUANT * Preventive Medicine: Counseling: C are goal [...] tobacco use and urged to quit. 0 12/27/2024 DM Care Plan: P atient Lifestyle Goals P atient wants to be able to manage diabetes without too much effort. T reatment Goals B lood Sugars less than < 115, HbA1C < 7.0. B arriers n o barriers. S elf-Managment Goals W ork on weight loss, with a goal of losing 1 lb per week. * Follow Up: 3 Months (Reason: OV) * Images: * Sign off status: Completed true * Provider: Evelyn Templeton MD Date: 0 12/27/2024 Generated for Maribeth almanzar/Eliane/Keriitting on: 05/31/2024 08:40 AM EST History and [...] normal, no s3, or vascular bruits, Old median sternotomy scar LUNGS: clear to auscultatio n ABDOMEN: bowel sounds normal, no ascites, no organomegaly, no mass: centripital obesity NEUROLOGIC: alert and oriented, cranial [...]
--- OUTSIDE RECORDS SUMMARY | 2025-01-15 05:06 | XMS_ITS ---
Author Organization Michael Templeton III, MD Address [address] [place] [address] Care Team Providers Care Dairy Associate Name Role Phone Dr. Michael Templeton III Primary Care Provider Results Component Value Reference Range Notes COLOGUARD Reviewed date:01/15/2025 10:09:14 AM Interpretation: Performing Lab: Notes/Report: Result Negative REASON FOR VISIT Cologuard Social History Sex Assigned At : Social History Observation Description Sex Assigned At Female Encounters Encounter Location Date Provider Diagnosis Michael Templeton III, MD [address] [place] [address] [place] [address] 01/15/2025 Michael Templeton Encounter for screening for malignant neoplasm of colon Z12.11 Assessments Encounter Date Diagnosis (ICD Code) Assessment Notes Treatment Notes Treatment Clinical Notes 01/15/2025 Encounter for screening for malignant neoplasm of colon (ICD-10 - Z12.11) Plan Of Treatment Next Appt Details Provider Name:Michael Templeton , 04/01/2025 03:00:00 PM, [address] [place] [address] [place], [address], Provider Name:Michael Templeton , 11/17/2025 02:00:00 PM, [address] [place] [address] , [address], [facility], [address], Progress Notes * Mónica PAULINODOB: (74 yo F)Acc No.[id number]:01/15/2025 Patient: Mónica WILEDR :1950 A ge:74 Y S ex:Female Address:[facility] [address], [place] [address] Subjective: * Chief Complaints: * C ologuard * Medical History: * Surgical History: * Hospitalization/Major Diagno stic Procedure: * Medications: Objective: * Vitals: * Physical Examination: Assessment: * Assessment: 1. E ncounter for screening for malignant neoplasm of colon - Z12.11 Plan: * Treatment: Value Reference Range R esult Negative * Procedure Codes: * true * Date: Generated for Maribeth almanzar/Eliane/eTransmitting on: 05/31/2024 08:39 AM EST
--- OUTSIDE RECORDS SUMMARY | 2025-01-23 06:40 | XMS_ITS ---
Author Organization Michael Templeton III, MD Address [address] [place] [address] Care Team Providers Care Human Factors Ergonomist Name Role Phone Dr. Michael Templeton III Primary Care Provider REASON FOR VISIT Rx Request Medications Medication SIG (Take, Route, Frequency, Duration) Notes Start Date End Date Status Rosuvastatin Calcium 40 MG 1 tablet Oral Once a day for 90 days Active Social History Sex Assigned At : Social History Observation Description Sex Assigned At Female Encounters Encounter Location Date Provider Diagnosis Michael Templeton III, MD [address] [place] [address] [place] [address] 01/23/2025 Michael Templeton Type 2 diabetes mellitus with hyperglycemia, without long-term current use of insulin E11.65 Assessments Encounter Date Diagnosis (ICD Code) Assessment Notes Treatment Notes Treatment Clinical Notes 01/23/2025 Type 2 diabetes mellitus with hyperglycemia, without long-term current use of insulin (ICD-10 - E11.65) The hemoglobin A1c is 6.9 on the fasting glucose is 142. Therapy with metformin has been initiated. Plan Of Treatment Medication Medication Name Sig Start Date Stop Date Notes Rosuvastatin Calcium 40 MG 1 tablet Oral Once a day for 90 days Next Appt Details Provider Name:Michael Templeton , 04/01/2025 03:00:00 PM, [address] [place] [address] [address], [place], [address], Provider Name:Michael Templeton , 11/17/2025 02:00:00 PM, [address] [place] [address] [address], [place], [address], Progress Notes * Maria Elena PAULINOlataDOB: (74 yo F)Acc No.[id number]:01/23/2025 Patient: Poly CARLOSDENISMónica DENNIS :1950 A ge:74 Y S ex:Female Address:[facility] [address], [place] [address] * Refills Refill Rosuvastatin Calcium Tablet, 40 MG, Oral, 90 Tablet, 1 tablet, Once a day, 90 days, Refills=3 * true * Date: Generated for Maribeth almanzar/Eliane/Jose Albertosmitting on: 05/31/2024 08:39 AM EST
--- OUTSIDE RECORDS SUMMARY | 2025-02-26 10:47 | XMS_ITS ---
Author Organization Michael Templeton III, MD Address [address] [place] [address] Care Team Providers Care Programmer Or Analyst Name Role Phone Dr. Michael Templeton III Primary Care Provider REASON FOR VISIT Cologuard due Social History Sex Assigned At : Social History Observation Description Sex Assigned At Female Encounters Encounter Location Date Provider Diagnosis Michael Templeton III, MD [address] [place] [address] [place] [address] 02/26/2025 Michael Templeton Encounter for screening for malignant neoplasm of colon Z12.11 Assessments Encounter Date Diagnosis (ICD Code) Assessment Notes Treatment Notes Treatment Clinical Notes 02/26/2025 Encounter for screening for malignant neoplasm of colon (ICD-10 - Z12.11) Plan Of Treatment Pending Test Test Name Order Date COLOGUARD 02/26/2025 Next Appt Details Provider Name:Michael Templeton , 04/01/2025 03:00:00 PM, [address] [place] [address] [place], [address], Provider Name:Michael Templeton , 11/17/2025 02:00:00 PM, [address] [place] [address] [place], [address], Progress Notes * Mónica PAULINODOB: (75 yo F)Acc No.[id number]:02/26/2025 Patient: Mónica WILDER :1950 A ge:75 Y S ex:Female Address:[address] [place] [address] , [place] [address] Subjective: * Chief Complaints: * C ologuard due * Medical History: * Surgical History: * Hospitalization/Major Diagno stic Procedure: * Medications: Objective: * Vitals: * Physical Examination: Assessment: * Assessment: 1. E ncounter for screening for malignant neoplasm of colon - Z12.11 Plan: * Treatment: * Procedure Codes: * true * Date: Generated for Maribeth almanzar/Eliane/Jose Albertosmitting on: 05/31/2024 08:39 AM EST
--- OUTSIDE RECORDS SUMMARY | 2025-03-31 08:39 | XMS_ITS | Patient Health Record ---
Author Organization [facility] Address [address] [place] [address] Care Team Providers Care Expeller Operator Name Role Phone DILLON BENTON MD Primary Care Provider Unavailab Татьяна Mac Unavailable [phone] Allergies No Known Allergies Reason For Referral No Information Medications Medication SIG (Take, Route, Fr equency, Duration) Notes Start Date End Date Status Aspirin EC 81MG 1 ORAL daily; Duration: -3 [facility]- 014 Active Nadolol 20MG 1 ORAL daily; Duration: -3 [facility]- 03/21/2011 Active Lisinopril 20 MG 1 tablet Orally Once a day [facility] 2010 Active Simvastatin 40 MG 1 tablet [...] Status W/U Status Risk Notes Problem Menopause (153823170) Menopausal and female climacteric states (N95.1) Active confirmed Problem Postmenopausal atrophic vaginitis (10640121) Postmenopausal atrophic vaginitis (N95.2) Active confirmed Problem Postmenopausal bleeding (83439230) Postmenopausal bleeding (N95.0) Active confirmed Problem Benign essential hypertension (2843358) Essential hypertension, benign (401.1) Active confirmed Major Problem Chronic ischemic heart disease (834948810) Unspecified chronic ischemic heart disease (414.9) Active confirmed Major Problem Gynecological examination normal (728757744305791) Routine gynecological examination (V72.31) Active confirmed Major Problem Screening for malignant neoplasm of colon (188048648) Special screening for malignant neoplasms, colon (V76.51) Active confirmed Major Plan Of Treatment Pending Test Test Name Order Date THIN PREP,HPV,YUMIKO IF HPV+ (>29YR)(SCRN) 06/19/2017 MM Digital Mammo Screening 06/19/2017 Insurance Providers Payer Name Payer Address Payer Phone Subscriber Number Group Number Insured Name Patient Relationship to Insured Coverage Start Date Coverage End Date [employer] [address] [place] [address] [id number] YOANA CHAVEZ Self - patient is the [...]
--- OUTSIDE RECORDS SUMMARY | 2025-03-31 08:39 | XMS_ITS | Patient Health Record ---
Author Organization Michael Templeton III, MD Address [address] [place] [address] Care Team Providers Care Front Tender Name Role Phone Dr. Michael Templeton III Primary Care Provider [phone] Allergies Allergen (clinical drug ingredient) Drug/Non Drug [...] Panel Reviewed date:08/24/2024 08:52:56 AM Interpretation: Performing Lab:[facility], [address] [place] [phone] Notes/Report: Triglycerides 139 <150 mg/dL Desirable Triglyceride: [...] low results in patients with liver disease. XR lumbar spine 2-3V Reviewed date:12/29/2024 05:10:05 AM Interpretation: Performing Lab: Notes/Report: [address] [address] XRay Report Signed Patient: Mónica Paulino MR#: [id number] : 1950 Acct:[id number] Age/Sex: 74 / F ADM Date: 12/11/24 Loc: HO.XRAY Attending Dr: Michael Templeton MD Ordering Physician: Michael Templeton MD Date of Service: 12/11/24 Procedure(s): XR lumbar spine 2-3V Accession Number(s): [id number] cc: Michael Templeton MD EXAMINATION: XR LUMBOSACRAL [...] Dwight Sandy MD 12/11/2024 04:07 PM EDT Dictated By: Dwight Sandy MD Signed By: <Electronically signed by Dwight Sandy MD in OV> 12/11/24 160 DD/ 1525 TD/TT: 12/11/24 1531 Commissioner Of Internal Revenue: RADHA [address] [address] XRay Report Signed Patient: Mónica Paulino MR#: [id number] : 1950 Acct:[id number] Age/Sex: 74 / F ADM Date: 12/11/24 Loc: HO.XRAY Attending Dr: Michael Templeton MD Ordering Physician: Michael Templeton MD Date of Service: 12/11/24 Procedure(s): XR lumbar spine 2-3V Accession Number(s): [id number] cc: Michael Templeton MD EXAMINATION: XR LUMBOSACRAL SPINE CLINICAL INFORMATION: ACUTE LEFT-SIDED LOW BACK PAIN COMPARISON: None available. TECHNIQUE: Three views of the lumbosacral spine. FINDINGS: There is normal lumb ar [...] Dwight Sandy MD 12/11/2024 04:07 PM EDT Dictated By: Dwight Sandy MD Signed By: <Electronically signed by Dwight Sandy MD in OV> 12/11/24 1607 DD/ 1525 TD/TT: 12/11/24 1531 Commissioner Of Internal Revenue: RADHA ARCOS/Hemocue glucose Reviewed date:12/27/2024 09:57:12 AM Interpretation: Performing Lab: Notes/Report: [facility] [address] Reviewed date:01/15/2025 10:09:14 AM Interpretation: Performing Lab: Notes/Report: Result Negative Complete Blood Count Auto Di ff Reviewed date:08/24/2024 08:52:56 AM Interpretation: Performing Lab:[facility], [address] [place] [phone] Notes/Report: White Blood Count 6.7 4.8-10.8 X10*3/uL [...] 0.0-0.2 /100WBC Neutrophils Absolute Auto 4.1 2.0-8.3 x10*3/u L Imm Gran Abs Auto 0.03 0.00-0.03 X10*3/uL Lymphocytes Absolute Auto 1.5 1.2-4.9 X10*3/u L Monocytes Absolute Auto 0.8 0.1-1.2 X10*3/uL Eosinophils Absolute Auto 0.2 0.0-0.4 X10*3/u L Basophils Absolute Auto 0.0 0.0-0.2 X10*3/uL NRBC Abs Auto 0.000 0.0-0.012 X10*3/uL XR chest 2V Reviewed date:08/24/2024 08:52:56 AM Interpretation: Performing Lab: Notes/Report: [address] [address] XRay Report Signed Patient: Mónica Paulino MR#: [id number] : 1950 Acct:[id number] Age/Sex: 74 / F ADM Date: 08/02/24 Loc: JORGE Attending Dr: Michael Templeton MD Ordering Physician: Michael Templeton MD Date of Service: 08/02/24 Procedure(s): XR chest 2V Accession Number(s): [id number] cc: Michael Templeton MD EXAMINATION: XR CHEST [...] in OV> 08/02/24 1327 DD/ 1204 TD/TT: 08/02/24 1208 Commissioner Of Internal Revenue: [address] [address] XRay Report Signed Patient: Mónica Paulino MR#: [id number] : 1950 Acct:[id number] Age/Sex: 74 / F ADM Date: 08/02/24 Loc: JORGE Attending Dr: Michael Templeton MD Ordering Physician: Michael Templeton MD Date of Service: 08/02/24 Procedure(s): XR alyssia st 2V Accession Number(s): [id number] cc: Michael Templeton MD EXAMINATION: XR CHES [...] in OV> 08/02/24 1327 DD/ 1204 TD/TT: 08/02/24 1208 Commissioner Of Internal Revenue: MM tomosynthesis screening B I Reviewed date:11/08/2024 07:19:59 PM Interpretation: Performing Lab: Notes/Report: [facility] [place] [address] Mammography Report Signed Patient: Mónica Paulino MR#: [id number] : 1950 Acct:[id number] Age/Sex: 74 / F ADM Date: 10/10/24 Loc: .MAMMO Attending Dr: Michael Templeton MD Ordering Physician: Michael Templeton MD Results: 1Negativ e Date of Service: 10/10/24 Follow Up: 1 Year From [facility] Mammogram Procedure(s): MM tomosynthesis screening BI Accession Number(s): [id number] cc: Michael Templeton MD EXAMINATION: MM SCREENING [...] 10/14/24 1723 DD/ 1340 TD/TT: 10/10/24 1355 Commissioner Of Internal Revenue: [place] [facility] [address] [place] [address] Mammography Report Signed Patient: Mónica Paulino MR#: [id number] : 1950 Acct:[id number] Age/Sex: 74 / F ADM Date: 10/10/24 Loc: HO.MAMMO Attending Dr: Michael Templeton MD Ordering Physician: Michael Templeton MD Results: 1Negativ e Date of Service: 10/10/24 Follow Up: 1 Year From [facility] Mammogram Procedure(s): MM tomosynthesis screening BI Accession Number(s): [id number] cc: Michael Templeton MD EXAMINATION: MM SCREENING [...] 10/14/24 1723 DD/ 1340 TD/TT: 10/10/24 1355 Commissioner Of Internal Revenue: XR DEXA axial skeleton Reviewed date:11/08/2024 07:19:59 PM Interpretation: Performing Lab: Notes/Report: [facility] [address] [place], [place] [address] Mammography Report Signed Patient: Mónica Paulino MR#: [id number] : 1950 Acct:[id number] Age/Sex: 74 / F ADM Date: 10/10/24 Loc: HO.MAMMO Attending Dr: Michael Templeton MD Ordering Physician: Michael Templeton MD Results: Date of Service: 10/10/24 Follow Up: Procedure(s): XR DEXA axial skeleton Accession Number(s): [id number] cc: Michael Templeton MD EXAMINATION: DXA BONE DENSITY AXIAL HISTORY: M81.0 TECHNIQUE: [employer] Dual energy absorptiometry (DEXA) of the lumbar [...] is a trademark of the [employer] Metabolic Bone Disease, a World Health Organization (WHO) Collaborating Center. Electronically signed by: Michael Dimas MD 10/10/2024 02:43 PM EDT RP Dictated By: Michael Dimas MD Signed By: <Electronically signed by Michael Dimas MD in OV> 10/10/24 1443 DD/ 1330 TD/TT: 10/10/24 1400 Commissioner Of Internal Revenue: [place] [facility] [address] [place] [address] Mammography Report Signed Patient: Mónica Paulino MR#: [id number] : 1950 Acct:[id number] Age/Sex: 74 / F ADM Date: 10/10/24 Loc: GIANNA Attending Dr: Michael Templeton MD Ordering Physician: Michael Templeton MD Results: Date of Service: 10/10/24 Follow Up: Procedure(s): XR DEX A axial skeleton Accession Number(s): [id number] cc: Michael Templeton MD EXAMINATION: DXA BON E DENSITY AXIAL HISTORY: M81.0 TECHNIQUE: [employer] Dual energy absorptiometry (DEXA) of the lumbar [...] of 1.1% compared to the prior exam. __ MM/XR DEXA axial skeleton IMPRESSION: Based on [...] of the [employer] [employer] Metabolic Bone Disease, a World Health Organization (WHO) Collaborating Center. Electronically brodie d by: Michael Dimas MD 10/10/2024 02:43 PM EDT Dictated By: Michael Dimas MD Signed By: <Electronically signed by Michael Dimas MD in OV> 10/10/24 1443 DD/ 1330 TD/TT: 10/10/24 1400 Commissioner Of Internal Revenue: MAMMOGRAM DIGITAL BILATERAL SCREEN Reviewed date:11/11/2024 01:35:27 PM Interpretation:undefined Performing Lab: Notes/Report: undefined Complete Blood Count Auto Di ff Reviewed date:11/11/2024 01:33:48 PM Interpretation: Performing Lab:[facility], [address] [place] [address] Notes/Report: White Blood Count 4.8 4.8-10.8 X10*3/uL [...] 0.0-0.2 /100WBC Neutrophils Absolute Auto 2.8 2.0-8.3 x10*3/u L Imm Gran Abs Auto 0.02 0.00-0.03 X10*3/uL Lymphocytes Absolute Auto 1.3 1.2-4.9 X10*3/u L Monocytes Absolute Auto 0.6 0.1-1.2 X10*3/uL Eosinophils Absolute Auto 0.1 0.0-0.4 X10*3/u L Basophils Absolute Auto 0.0 0.0-0.2 X10*3/uL NRBC Abs Auto 0.000 0.0-0.012 X10*3/uL Comprehensive Pateros. Panel Fa st Reviewed date:11/11/2024 01:33:48 PM Interpretation: Performing Lab:[facility], [address] [place] [phone] Notes/Report: Sodium 142 135-145 mmol/L Potassium 4.3 [...] Panel Reviewed date:11/11/2024 01:33:48 PM Interpretation: Performing Lab:[address] [address] Notes/Report: Triglycerides 195 <150 mg/dL Desirable Triglyceride: [...] A1c Reviewed date:11/11/2024 01:33:48 PM Interpretation: Performing Lab:[address] [address] Notes/Report: Hemoglobin A1c % 6.9 <6.0 % [...] average glucose, using the formula of the [id number] Average Glucose study (ADAG), Diabetes Care, Vol.31,#8, 2007 Reason For Referral No Information Medications Medication SIG (Take, Route, Frequency, Duration) Notes Start Date End Date Status Nitroglycerin 0.4 MG 1 tablet under the tongue and allow to dissolve as needed Sublingual every 0 hrs 10/20/2011 Active dexAMETHasone 2 MG 1 tablet Orally twice a day 12/11/2024 Active Ciprofloxacin HCl 250 MG 1 tablet Orally every 12 hrs 12/03/2024 Active Adult Aspirin EC Low Strength 81 MG 1 tablet Orally Once a day Active dexAMETHasone 2 MG 1 tablet Orally twice a day 10/21/2024 Active [facility] Isopropyl Alcohol Wipes 70 % [...] meal Orally Once a day 11/11/2024 Active Cyclobenzaprine HCl 10 MG 1 tablet Orally three ties a day Active Nadolol 20 MG 1 tablet Orally Once a day for 90 days Active Lisinopril 40 MG 1 tablet Orally Once a day for 90 days Active Rosuvastatin Calcium 40 MG 1 tablet Oral Once a day for 90 days Active Social History Tobacco Use: Social History [...] Problem Status W/U Status Risk Notes Problem 8694403 Former smoker (Z87.891) Active confirmed She is highly motivated not to smoke and has a plan for prevention of relapse. Problem 65019057 Hyperlipidemia (E78.5) Active confirmed Her lipids are currently stable. She will have frequent fasting lipid determinations. No change in her regimen was needed. Problem 300094654 Obesity (E66.9) Active confirmed Her body mass index is 32. We have reviewed the elements of a weight loss diabetic diet. I recommended aggressive sodium restriction and calorie restriction as well. Problem 360029016 Gross hematuria (R31.0) Active confirmed She recently had an episode of gross hematuria. An ultrasound of the genitourinary tract showed no abnormality. A urology consultation and cystoscopy are being done. Urine cytology shows no tumor cells. She has had only normal urinating since that time. Problem 78782509 Coronary artery disease (I25.10) Active confirmed She reports no exertional chest pain since her last visit. She has had no palpitations or dyspnea on exertion. No change in her medication was necessary. I recommended that she see her film splicer at appropriate intervals. Problem 81369719 Essential hypertension (I10) Active confirmed Her blood pressure has been stable. She is compliant with all of her medications. No change in her regimen as necessary today. I A repeat visit was arranged recommended aggressive weight loss and sodium restriction.The systolic blood pressure 141 is slightly elevated will be observed carefully. Problem 462351814 Anemia of chronic disease (D63.8) Active confirmed She denies any recent bleeding. A CBC is pending. Problem 59219336 Carpal tunnel syndrome (G56.00) Active confirmed The intermittent tingling in the left hand may be nerve compression in the carpal tunnel. It is mild and will be observed at this time. There is no indication for surgery at this time. Problem Osteoporosis (38287116) Osteoporosis (M81.0) Active confirmed She continues on calcium and vitamin D. A bone density test shows improvement towards normal bone density. Problem 786995920 Insomnia (G47.00) Active confirmed I have prescribed 10 5 mg LPM tablets. I instructed her to take these as needed so she could get back into a resting state. I did not recommend that she take sleeping pills every night. Problem 63259839 Viral syndrome (B34.9) Active confirmed He will be treated conservatively. Blood work will be obtained. I ordered a chest x-ray. She'll follow-up by telephone every 48 hours. Problem 867223202 Cholelithiasis (K80.20) Active confirmed She has had no symptoms of cholelithiasis and denies abdominal pain. 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 She will use heat and rest. If they become painful. Otherwise, she will elevate her legs periodically and use support hose. Problem 73701064 Left medial knee pain (M25.562) Active confirmed She reports that the knee pain has resolved. Problem 06126258 Type 2 diabetes mellitus with hyperglycemia, without long-term current use of insulin (E11.65) Active confirmed The hemoglo bin A1c is 6.9 on the fasting glucose is 142. Therapy with metformin has been initiated. Vital Signs Heart Rate 67 /min 12/27/2024 Temperature 98.1 degrees Fahrenheit 12/27/2024 Blood pressure diastolic 69 mm Hg 12/27/2024 Height 60 in 12/27/2024 Blood pressure systolic 139 mm Hg 12/27/2024 Weight 167 lbs 12/27/2024 BMI 32.61 kg/m2 12/27/2024 Encounters Encounter Location Date Provider Diagnosis Michael Templeton III, MD [address] [place] [address] [place] [address] 07/22/2024 Michael Templeton Essential hypertensi on I10 ; Coronary artery disease I25.10 ; Osteoporosis M81.0 ; Encounter for screening mammogram for malignant neoplasm of breast Z12.31 ; Obesity E66.9 ; Hyperlipidemia E78.5 ; Former smoker Z87.891 ; Vertigo R42 and Varicose veins of left lower extremity with pain I83.812 Michael Templeton III, MD [address] [place] [address] [place] [address] 07/26/2024 Michael Templeton Screen for colon can cer Z12.11 Michael Templeton III, MD [address] [place] [address] [place] [address] 07/30/2024 Michael Templeton Essential hypertensi on I10 ; Coronary artery disease I25.10 ; Former smoker Z87.891 ; Obesity E66.9 ; Type 2 diabetes mellitus with hyperglycemia, without long-term current use of insulin E11.65 and Viral syndrome B34.9 Michael Templeton III, MD [address] [place] [address] [place] [address] 08/02/2024 Michael Templeton Obesity E66.9 ; Type 2 diabetes mellitus with hyperglycemia, without long-term current use of insulin E11.65 ; Hyperlipidemia E78.5 ; Coronary artery disease I25.10 ; Former smoker Z87.891 ; Left medial knee pain M25.562 ; Osteoporosis M81.0 ; Gross hematuria R31.0 and Viral syndrome B34.9 Michael Temlpeton III, MD [address] [place] [address] [place] [address] 11/07/2024 Michael Templeton Type 2 diabetes adelita itus with hyperglycemia, without long-term current use of insulin E11.65 ; Essential hypertension I10 ; Coronary artery disease I25.10 ; Obesity E66.9 ; Osteoporosis M81.0 ; Former smoker Z87.891 and Varicose veins of left lower extremity with pain I83.812 Michael Templeton III, MD [address] [place] [address] [place] [address] 11/11/2024 Michael Templeton Type 2 diabetes adelita itus with hyperglycemia, without long-term current use of insulin E11.65 ; Coronary artery disease I25.10 ; Obesity E66.9 ; Essential hypertension I10 ; Hyperlipidemia E78.5 and Former smoker Z87.891 Michael Templeton III, MD [address] [place] [address] [place] [address] 12/11/2024 Michael Templeton Type 2 diabetes adelita itus with hyperglycemia, without long-term current use of insulin E11.65 ; Other low back pain M54.59 ; Coronary artery disease I25.10 ; Essential hypertension I10 ; Hyperlipidemia E78.5 ; Former smoker Z87.891 ; Vertigo R42 and Carpal tunnel syndrome G56.00 Michael Templeton III, MD [address] [place] [address] [place] [address] 12/27/2024 Michael Templeton Type 2 diabetes adelita itus with hyperglycemia, without long-term current use of insulin E11.65 ; Coronary artery disease I25.10 ; Obesity E66.9 ; Hyperlipidemia E78.5 ; Former smoker Z87.891 ; Insomnia G47.00 ; Left medial knee pain M25.562 and Varicose veins of left lower extremity with pain I83.812 Michael Templeton III, MD [address] [place] [address] [place] [address] 06/17/2024 Michael Templeton III, MD [address] [place] [address] [place] [address] 07/22/2024 Michael Templeton III, MD [address] [place] [address] [place] [address] 08/01/2024 Michael Templeton III, MD [address] [place] [address] [place] [address] 08/06/2024 Michael Templeton III, MD [address] [place] [address] [place] [address] 08/06/2024 Michael Templeton III, MD [address] [place] [address] [place] [address] 10/18/2024 Michael Templeton III, MD [address] [place] [address] [place] [address] 10/18/2024 Michael Templeton III, MD [address] [place] [address] [place] [address] 10/21/2024 Michael Templeton III, MD [address] [place] [address] [place] [address] 10/21/2024 Michael Templeton III, MD [address] [place] [address] [place] [address] 11/06/2024 Michael Templeton III, MD [address] [place] [address] [place] [address] 12/03/2024 Michael Templeton III, MD [address] [place] [address] [place] [address] 12/09/2024 Michael Templeton III, MD [address] [place] [address] [place] [address] 01/15/2025 Michael Mcmanus for screen ing for malignant neoplasm of colon Z12.11 Michael Templeton III, MD [address] [place] [address] [address] [place] [address] 01/23/2025 Michael Templeton Type 2 diabetes adelita itus with hyperglycemia, without long-term current use of insulin E11.65 Michael Templeton III, MD [address] [place] [address] [place] [address] 02/26/2025 Michael Templeton Encounter for screen ing for malignant neoplasm of colon Z12.11 Assessments Encounter Date Diagnosis (ICD Code) Assessment Notes Treat ment Notes Treatment Clinical Notes 07/22/2024 Coronary artery disease (ICD-10 - I25.10) She reports no exertional chest pain since her last visit. She has had no palpitations or dyspnea on exertion. No change in her medication was necessary. I recommended that she see her film splicer at appropriate intervals. 07/22/2024 Essential hypertension (ICD-10 [...] necessary. I recommended that she see her film splicer at appropriate intervals. 07/30/2024 Essential hypertension (ICD-10 [...] necessary. I recommended that she see her film splicer at appropriate intervals. 11/11/2024 Type 2 diabetes mellitus with hyperglycemia, without long-term current use of insulin (ICD-10 - E11.65) The hemoglobin A1c is 6.9 on the fasting glucose is 142. Therapy with metformin has been initiated. 12/11/2024 Other low back pain (ICD-10 - M54.59) She will continue with heat, rest, acetaminophen and dexamethasone. 12/11/2024 Type 2 diabetes mellitus with hyperglycemia, [...] necessary. I recommended that she see her film splicer at appropriate intervals. 12/27/2024 Type 2 diabetes mellitus with hyperglycemia, without long-term current use of insulin (ICD-10 - E11.65) The hemoglobin A1c is 6.9 on the fasting glucose is 142. Therapy with metformin has been initiated. 01/15/2025 Encounter for screening for malignant neoplasm of colon (ICD-10 - Z12.11) 01/23/2025 Type 2 diabetes mellitus with hyperglycemia, without long-term current use of insulin (ICD-10 - E11.65) The hemoglobin A1c is 6.9 on the fasting glucose is 142. Therapy with metformin has been initiated. 02/26/2025 Encounter for screening for malignant neoplasm of colon (ICD-10 - Z12.11) 07/22/2024 Osteoporosis (ICD-10 - M81.0) She continues on calcium and vitamin D. A bone density test will be done periodically. She denies any skeletal pain. 07/30/2024 Former smoker (ICD-1 0 - Z87.891) She [...] necessary. I recommended that she see her film splicer at appropriate intervals. 11/11/2024 Obesity (ICD-10 - E66.9) He has lost 4 pounds But remains obese. We have reviewed her weight loss strategy today. 12/11/2024 Coronary artery disease (ICD-10 - I25.10) She reports no exertional chest pain since her last visit. She has had no palpitations or dyspnea on exertion. No change in her medication was necessary. I recommended that she see her film splicer at appropriate intervals. 12/27/2024 Obesity (ICD-10 - E66.9) Her body mass index is 32. We have reviewed the elements of a weight loss diabetic diet. I recommended aggressive sodium restriction and calorie restriction as well. 07/22/2024 Encounter for screening mammogram for malignant [...] necessary. I recommended that she see her film splicer at appropriate intervals. 11/07/2024 Obesity (ICD-10 - [...] slightly elevated will be observed carefully. 12/11/2024 Essential hypertension (ICD-10 - I10) Her blood pressure has been stable. She is compliant with all of her medications. No change in her regimen as necessary today. I A repeat visit was arranged recommended aggressive weight loss and sodium restriction.The systolic blood pressure 141 is slightly elevated will be observed carefully. 12/27/2024 Hyperlipidemia (ICD-10 - E78.5) Her lipids are currently stable. She will have frequent fasting lipid determinations. No change in her regimen was needed. 07/22/2024 Obesity (ICD-10 - E66.9) Her weight [...] and microalbumin are pending 08/02/2024 Former smoker (ICD-1 0 - Z87.891) She [...] been maintained in the normal range. 12/11/2024 Hyperlipidemia (ICD-10 - E78.5) Comprehensive blood work including a fasting lipid profile has been ordered. Her lipids have been maintained in the normal range. 12/27/2024 Former smoker (ICD-1 0 - Z87.891) She is highly motivated not to smoke and has a plan for prevention of relapse. 07/22/2024 Hyperlipidemia (ICD-10 - E78.5) Comprehensive blood work with a fasting lipid profile has been ordered by her to her next visit. No change in her current medication was made. 07/30/2024 Viral syndrome (ICD-10 - B34.9) She will continue with [id number] medication. I suggested she be tested for influenza and santiago virus. She is considering this. She will report in 48 hours but immediately if she worsens. 08/02/2024 Left medial knee derek n (ICD-10 - M25.562) She reports that the knee pain has resolved. 11/07/2024 Former smoker (ICD-1 0 - Z87.891) She is highly motivated not to smoke and has a plan for prevention of relapse. 11/11/2024 Former smoker (ICD-1 0 - Z87.891) She is highly motivated not to smoke and has a plan for prevention of relapse. 12/11/2024 Former smoker (ICD-1 0 - Z87.891) She is highly motivated not to smoke and has a plan for prevention of relapse. 12/27/2024 Insomnia (ICD-10 - G47.00) I have prescribed 10 5 mg LPM tablets. I instructed her to take these as needed so she could get back into a resting state. I did not recommend that she take sleeping pills every night. 07/22/2024 Former smoker (ICD-1 0 - Z87.891) She [...] her legs periodically and use support hose. 12/11/2024 Vertigo (ICD-10 - R42) This problem is addressed. The episodic vertigo is well controlled meclozine. 12/27/2024 Left medial knee derek n (ICD-10 - M25.562) She reports that the knee pain has resolved. 07/22/2024 Vertigo (ICD-10 - R42) This problem is addressed. The episodic vertigo is well controlled meclozine. 08/02/2024 Gross hematuria (ICD-10 - R31.0) She recently had an episode of gross hematuria. An ultrasound of the genitourinary tract showed no abnormality. A urology consultation and cystoscopy are being done. Urine cytology shows no tumor cells. She has had only normal urinating since that time. 12/11/2024 Carpal tunnel syndrome (ICD-10 - G56.00) The intermittent tingling in the left hand may be nerve compression in the carpal tunnel. It is mild and will be observed at this time. There is no indication for surgery at this time. 12/27/2024 Varicose veins of left lower extremity with pain (ICD-10 - I83.812) She has not had recent pain from her varicose veins. She will use heat and rest. If they become painful. Otherwise, she will elevate her legs periodically and use support hose. 07/22/2024 Varicose veins of left lower extremity [...] She'll follow-up by telephone every 48 hours. Plan Of Treatment Pending Test Test Name Order Date Ear Lavage 09/13/2011 PROFILE, FASTING (COMPREHENSIVE METABOLI C) 04/19/2021 PROFILE, FASTING (COMPREHENSIVE METABOLI C) 10/31/2022 PROFILE, FASTING (COMPREHENSIVE METABOLI C) 07/18/2017 PROFILE, FASTING (COMPREHENSIVE METABOLI C) 10/30/2018 PROFILE, FASTING (COMPREHENSIVE METABOLI C) 10/18/2021 PROFILE, FASTING (COMPREHENSIVE METABOLI C) 06/12/2023 PROFILE, FASTING (COMPREHENSIVE METABOLI C) 08/12/2019 PROFILE, FASTING (COMPREHENSIVE METABOLI C) 02/10/2020 PROFILE, FASTING (COMPREHENSIVE METABOLI C) 09/12/2016 PROFILE, FASTING (COMPREHENSIVE METABOLI C) 07/25/2022 PROFILE, FASTING (COMPREHENSIVE METABOLI C) 04/04/2017 PROFILE, FASTING (COMPREHENSIVE METABOLI C) 07/31/2018 PROFILE, FASTING (COMPREHENSIVE METABOLI C) 07/19/2021 PROFILE, FASTING (COMPREHENSIVE METABOLI C) 10/27/2017 PROFILE, FASTING (COMPREHENSIVE METABOLI C) 01/28/2019 PROFILE, FASTING (COMPREHENSIVE METABOLI C) 03/21/2022 PROFILE, FASTING (COMPREHENSIVE METABOLI C) 08/15/2023 PROFILE, FASTING (COMPREHENSIVE METABOLI C) 10/14/2019 PROFILE, FASTING (COMPREHENSIVE METABOLI C) 06/29/2020 PROFILE, FASTING (COMPREHENSIVE METABOLI C) 12/13/2016 PROFILE, FASTING (COMPREHENSIVE METABOLI C) 12/27/2024 PROFILE, RANDOM (COMPREHENSIVE METABOLIC ) 09/28/2020 HEMOGLOBIN A1C (GLYCOHEMOGLOBIN) 022 LIPID PANEL 10/14/2019 LIPID PANEL 06/29/2020 LIPID PANEL 12/13/2016 LIPID PANEL 04/19/2021 LIPID PANEL 10/31/2022 LIPID PANEL 07/18/2017 LIPID PANEL 10/30/2018 LIPID PANEL 08/12/2019 LIPID PANEL 02/10/2020 LIPID PANEL 09/12/2016 LIPID PANEL 09/28/2020 LIPID PANEL 07/25/2022 LIPID PANEL 04/04/2017 LIPID PANEL 07/31/2018 LIPID PANEL 07/19/2021 LIPID PANEL 10/27/2017 LIPID PANEL 01/28/2019 LIPID PANEL 03/21/2022 FREE T4 (FT4) 10/27/2017 TSH (THYROID STIMULATING HORMONE) 2017 FERRITIN 03/21/2022 MICROALBUMIN, RANDOM 07/23/2021 CBC w DIFF 07/19/2021 CBC w DIFF 01/28/2019 CBC w DIFF 12/27/2024 CBC w DIFF 10/14/2019 CBC w DIFF 06/29/2020 CBC w DIFF 03/21/2022 CBC w DIFF 12/13/2016 CBC w DIFF 10/18/2021 CBC w DIFF 10/27/2017 CBC w DIFF 04/19/2021 CBC w DIFF 10/31/2022 CBC w DIFF 07/18/2017 CBC w DIFF 10/30/2018 CBC w DIFF 08/12/2019 CBC w DIFF 02/10/2020 CBC w DIFF 09/12/2016 CBC w DIFF 09/28/2020 CBC w DIFF 07/25/2022 CBC w DIFF 04/04/2017 CBC w DIFF 07/31/2018 URINALYSIS - CLEAN CATCH (UA) 02/20/2023 BONE DENSITY DEXA 07/22/2024 CBC WITH AUTO DIFF 08/15/2023 CBC WITH AUTO DIFF 06/12/2023 COLOGUARD 02/26/2025 Lipid Panel 08/15/2023 Lipid Panel 12/27/2024 Lipid Panel 10/18/2021 Lipid Panel 06/12/2023 Microalbumin, Random 12/27/2024 MM tomosynthesis screening BI 07/22/2024 Hemoglobin A1c 08/15/2023 Hemoglobin A1c 12/27/2024 Next Appt Details Provider Name:Michael Templeton , 04/01/2025 03:00:00 PM, [address] [place] [address] TASHI STROUD, NATALYA PEDRAZA, [id number], Provider Name:Michael Templeton , 11/17/2025 02:00:00 PM, [address] [place] [address] TASHI STROUD, NATALYA PEDRAZA, [id number], Insurance Providers Payer Name Payer Address Payer Phone Subscriber Number Group Number Insured Name Patient Relationship to Insured Coverage Start Date Coverage End Date [facility] [address] [facility] [address] [place] [phone] [id number] Lora, [employer] Self - patient is the insured MEDICARE NGS [address] [place] [address] [id number] Lora, [employer] Self - patient is the insured Medical (General) History Medical History History ICD Code hypertension anxiety abnormal mammogram hyperlipidemia CAD, [place] 2003, 3 vessel CABG choleithiases hematuria last bilateral mammogram 10/05/12 @ dysfunctional uterine bleeding 1999, neg ative biopsy normal colonoscopy January 2010 Dr. Abdon blanc Surgical History Surgery Date(Month/Year) Gallbladder laparoscopic cholecystectomy, Dr. Michael latham, [facility] 01/19/2015 normal colonoscopy, Dr. Silva, [facility] January 2010 negative endometrial biopsy for dysfunct ional uterine bleeding 1999 three-vessel coronary artery bypass surg gisela 2004 Hospitalization History Reason Date(Month/Year) No history vaginal bleed 08/2018
[2025-03-31 10:08] LABS: MANUAL DIFF FLAG NO
[2025-03-31 10:19] LABS: Hematocrit 32.5 % (37.0-47.0); Hemoglobin 10.2 g/dl (12.0-16.0); Imm Gran Abs Auto 0.01 X10*3/uL (0.00-0.03); Imm Gran Pct Auto 0.2 % (0.0-0.4); Lymphocytes Absolute Auto 1.6 X10*3/uL (1.2-4.9); Mean Corpuscular HGB Conc 31.4 g/dl (31.0-35.0); Mean Corpuscular Hemoglobin 27.9 pg (27.0-33.0); Mean Corpuscular Volume 88.8 fL (80.0-98.0); NRBC Abs Auto 0.000 X10*3/uL (0.0-0.012); NRBC Pct Auto 0.0 /100WBC (0.0-0.2); Platelet Count 205 X10*3/uL (160-400); Red Blood Count 3.66 X10*6/uL (4.20-5.50); White Blood Count 6.4 X10*3/uL (4.8-10.8)
[2025-03-31 11:01] LABS: Alanine Aminotransferase 13 U/L (0-31); Albumin Level 4.2 g/dL (3.5-5.0); Alkaline Phosphatase 45 U/L (39-117); Anion Gap 13 (12-20); Aspartate Amino Transferase 28 U/L (5-31); Blood Urea Nitrogen 22 mg/dL (9-16); Calcium 9.4 mg/dL (8.4-10.2); Carbon Dioxide 26 mmol/L (22-29); Chloride 107 mmol/L (96-108); Cholesterol 117 mg/dL (<200); Estimated Glomerular Filt Rate 49; HDL Cholesterol 37 mg/dL (>40); Potassium 4.2 mmol/L (3.3-5.1); Sodium 142 mmol/L (135-145); Total Protein 7.0 g/dL (6.5-8.0); Triglycerides 113 mg/dL (<150)
== END 2025-03-31 08:28 | disposition home or self-care (01) ==
LOC: HO.HMGCLDS 08:27
PROVIDERS: PCP Internal Medicine Medical Oncology; Visit Provider Internal Medicine Medical Oncology
DX: E11.65 Type 2 diabetes mellitus with hyperglycemia (principal); E66.9 Obesity, unspecified; E78.5 Hyperlipidemia, unspecified
CPT/HCPCS: 36415; 80053; 80061; 83036; 85025